=== PATIENT | female | born 1940 | race Caucasian/White ===

== ENCOUNTER 2023-09-09 17:43 | Emergency (ER) | payer MEDICARE, SELFPAY ==
--- NOTE | ~2023-09-09 | XR_ITS ---
EXAMINATION: XR CHEST CLINICAL INFORMATION: Shortness of breath COMPARISON: None available. TECHNIQUE: 2 views of the chest were obtained. FINDINGS: Moderate central pulmonary vascular congestion and increased lung markings consistent with interstitial edema. No significant pleural effusion. No focal consolidation. Heart size is normal. Vascular calcifications of thoracic aorta. XR/XR chest 2V IMPRESSION: Pulmonary vascular congestion consistent with congestive heart failure.
[2023-09-09 17:48] VITALS: BP 186/92; PULSE 84; RESP 20; TEMP 36.6; O2SAT 97; BMI 41.6
--- NOTE | 2023-09-09 17:48 | ED.GENADULT ---
HPI - General Adult General Chief complaint: Skin/Abscess/Foreign Body Stated complaint: Bilateral leg swelling Time Seen by Provider: 09/09/23 21:08 Related Data Previous Rx's Medication Instructions Recorded cephalexin 500 mg capsule 500 mg PO Q8H 7 days #21 caps 09/09/23 furosemide 20 mg tablet (Lasix) 20 mg PO DAILY #7 tabs 09/09/23 Allergies Allergy/AdvReac Type Severity Reaction Status Date / Time doxycycline Allergy Unknown Verified 09/09/23 17:53 Penicillins Allergy Unknown Verified 09/09/23 17:53 pneumococcal vaccine Allergy Unknown Verified 09/09/23 17:53 [From Pneumovax-] [facility] Social History Social History Advance Directives: Yes Advance Directives on File: No Physical Exam ED Vital Signs: BMI result Body Mass Index 41.6 Course Course Course Narrative: RME performed by Patti Dallas PA-C. Patient is an 83 year old assigned female at presenting to the emergency department with bilateral lower leg swelling. Labs ordered. Patient placed back in the waiting room pending room availability and results. Patient evaluated and dispositioned by Dr. Ling. Please see his note from 09/09/2023. Medications Administered Discontinued Medications Generic Name Dose Route Start Last Admin Trade Name Freq PRN Reason Stop Dose Admin Furosemide 20 mg 09/09/23 21:24 09/09/23 22:06 Furosemide 20 Mg Tablet PO 09/09/23 21:25 20 mg ONCE ONE Administration Protocol Ceftriaxone Sodium 1 gm/ 50 mls @ 100 mls/hr 09/09/23 21:21 09/09/23 22:38 Sodium Chloride IV 09/09/23 21:50 Infused ONCE ONE Infusion Medical Decision Making Lab Data 09/09/23 18:51 09/09/23 18:51 Labs: Lab Results 09/09/23 09/09/23 Range/Units 18:51 20:31 WBC 8.4 (4.8-10.8) X10*3/uL RBC 3.93 L (4.20-5.50) X10*6/uL Hgb 11.5 L (12.0-16.0) g/dl Hct 35.8 L (37.0-47.0) % MCV 91.1 (80.0-98.0) fL MCH 29.3 (27.0-33.0) pg MCHC 32.1 (31.0-35.0) g/dl RDW 14.8 (11.0-16.0) % Plt Count 313 (160-400) X10*3/uL MPV 9.6 (9.4-12.3) fL Immature Gran % (Auto) 0.2 (0.0-0.4) % Neut % (Auto) 65.0 (45-73) % Lymph % (Auto) 25.1 (20-40) % [place] % (Auto) 6.5 (2-11) % Eos % (Auto) 2.4 (0-4) % Baso % (Auto) 0.8 (0-2) % Lymph # (Auto) 2.1 (1.2-4.9) X10*3/uL [place]linger # (Auto) 0.5 (0.1-1.2) X10*3/uL Eos # (Auto) 0.2 (0.0-0.4) X10*3/uL Baso # (Auto) 0.1 (0.0-0.2) X10*3/uL Abs Immat Gran (auto) 0.02 (0.00-0.03) X10*3/uL Absolute Neuts (auto) 5.4 (2.0-8.3) x10*3/uL Absolute Nucleated RBC 0.000 (0.0-0.012) X10*3/uL Nucleated RBC % (auto) 0.0 (0.0-0.2) /100WBC ESR 62 H (0-20) MM/HR PT 12.1 (11.1-13.3) SEC INR 1.0 (0.9-1.1) APTT 29.6 (26.0-36.4) SEC Sodium 143 (135-145) mmol/L Potassium 4.3 (3.3-5.1) mmol/L Chloride 108 (96-108) mmol/L Carbon Dioxide 23 (22-29) mmol/L Anion Gap 16 (12-20) BUN 19 H (9-16) mg/dL Creatinine 0.85 (0.5-1.4) mg/dL Estim Creat Clear Calc 55.3 Estimated GFR > 60 Random Glucose 101 (60-115) mg/dL Calcium 9.3 (8.4-10.2) mg/dL Magnesium 2.2 (1.6-2.6) mg/dL Total Bilirubin 0.7 (0.0-1.0) mg/dL AST 15 (5-31) U/L ALT 8 (0-31) U/L Alkaline Phosphatase 80 (39-117) U/L C-Reactive Protein 2.97 H (< or = 0.50) mg/dL B-Natriuretic Peptide 72 (<100) pg/mL Total Protein 7.6 (6.5-8.0) g/dL Albumin 3.9 (3.5-5.0) g/dL Urine Color Yellow Urine Appearance Clear Urine pH 6.0 (5.0-9.0) Ur Specific [place] 1.020 (1.005-1.025) Urine Protein Negative (Neg-Trace) mg/dL Urine Glucose (UA) Negative (Negative) mg/dL Urine Ketones Negative (Negative) mg/dL Urine Blood Negative (Negative) Urine Nitrite Positive H (Negative) Ur Leukocyte Esterase Small (1+) H (Negative) Urine RBC 0-2 (0-2) /HPF Urine WBC 11-20 H (0-5) /HPF Ur Squamous Epith Cells 0-2 (0-2) /HPF Urine Bacteria 4+ (None Seen) Hyaline Casts 0-2 (0-2) /LPF Discharge Plan Discharge Clinical Impression: Cellulitis, Leg swelling Patient Disposition: Home, Self-Care Instructions: Cellulitis (DC), Leg Edema (ED) Prescriptions: New cephalexin 500 mg capsule 500 mg PO Q8H 7 Days Qty: 21 0RF furosemide [Lasix] 20 mg tablet 20 mg PO DAILY Qty: 7 0RF Referrals: Latesha Carranza [Emergency Nurse] - 09/12/23 Interventions: ED Discharge Assessment Last Done: 09/09/23 23:20 Discharge Date/Time: 09/09/23 23:20
[2023-09-09 19:04] LABS: MANUAL DIFF FLAG NO
[2023-09-09 19:13] LABS: Prothrombin Time 12.1 SEC (11.1-13.3)
[2023-09-09 19:15] LABS: Basophils Absolute Auto 0.1 X10*3/uL (0.0-0.2); Basophils Percent Auto 0.8 % (0-2); Eosinophils Absolute Auto 0.2 X10*3/uL (0.0-0.4); Eosinophils Percent Auto 2.4 % (0-4); Hematocrit 35.8 % (37.0-47.0); Hemoglobin 11.5 g/dl (12.0-16.0); Imm Gran Abs Auto 0.02 X10*3/uL (0.00-0.03); Imm Gran Pct Auto 0.2 % (0.0-0.4); Lymphocytes Absolute Auto 2.1 X10*3/uL (1.2-4.9); Lymphocytes Percent Auto 25.1 % (20-40); Mean Corpuscular HGB Conc 32.1 g/dl (31.0-35.0); Mean Corpuscular Hemoglobin 29.3 pg (27.0-33.0); Mean Corpuscular Volume 91.1 fL (80.0-98.0); Mean Platelet Volume 9.6 fL (9.4-12.3); Monocytes Absolute Auto 0.5 X10*3/uL (0.1-1.2); Monocytes Percent Auto 6.5 % (2-11); Neutrophils Absolute Auto 5.4 x10*3/uL (2.0-8.3); Partial Thromboplastin Time 29.6 SEC (26.0-36.4); Platelet Count 313 X10*3/uL (160-400); Red Blood Count 3.93 X10*6/uL (4.20-5.50); Red Cell Distribution Width 14.8 % (11.0-16.0); White Blood Count 8.4 X10*3/uL (4.8-10.8)
[2023-09-09 19:19] LABS: Alanine Aminotransferase 8 U/L (0-31); Albumin Level 3.9 g/dL (3.5-5.0); Alkaline Phosphatase 80 U/L (39-117); Anion Gap 16 (12-20); Aspartate Amino Transferase 15 U/L (5-31); Bilirubin Total 0.7 mg/dL (0.0-1.0); Blood Urea Nitrogen 19 mg/dL (9-16); C Reactive Protein 2.97 mg/dL (< or = 0.50); Calcium 9.3 mg/dL (8.4-10.2); Carbon Dioxide 23 mmol/L (22-29); Chloride 108 mmol/L (96-108); Creatinine Clr Calc Pharmacy 55.3; Estimated Glomerular Filt Rate > 60; Glucose Random 101 mg/dL (60-115); Magnesium 2.2 mg/dL (1.6-2.6); Potassium 4.3 mmol/L (3.3-5.1); Sodium 143 mmol/L (135-145); Total Protein 7.6 g/dL (6.5-8.0)
[2023-09-09 19:25] LABS: B Type Natriuretic Peptide 72 pg/mL (<100)
[2023-09-09 20:08] LABS: Erythrocyte Sedimentation Rate 62 MM/HR (0-20)
[2023-09-09 20:39] LABS: Appearance Urine Clear; Color Urine Yellow; Glucose Urine UA Negative (Negative); Leukocyte Esterase Urine Small (1+) (Negative); Nitrite Urine Positive (Negative); UMIC TRIGGER UACC YES; Urine Blood Negative (Negative); Urine Ketones Negative (Negative); Urine Protein Negative (Neg-Trace)
[2023-09-09 20:44] LABS: Bacteria Urine 4+ (None Seen); Hyaline Casts Urine 0-2 /LPF (0-2); RBC Urine 0-2 /HPF (0-2); Squamous Epithelial Cell Urine 0-2 /HPF (0-2); UACC Culture Trigger YES
[2023-09-09 21:06] VITALS: BP 155/69; PULSE 87; RESP 20; TEMP 36.6; O2SAT 96
--- NOTE | 2023-09-09 21:22 | ED_ITS ---
HPI - Skin/Abscess/Foreign Bdy General Chief complaint: Skin/Abscess/Foreign Body Stated complaint: Bilateral leg swelling Time Seen by Provider: 09/09/23 21:08 History of Present Illness HPI narrative: Patient is a 83-year-old female presents today with having bilateral leg swelling that seems to have gotten slightly worse than baseline. The patient has no history congestive heart failure baseline has leg swelling. Family complained the right leg also having some slight drainage. It is clear in color. There is a slight redness that has chronically been near. Denies any fever chills. No systemic complaints. No chest pain or shortness of breath no diaphoresis. No history of blood clot both legs are swollen. No history of cancer. Positive history of high blood pressure. Patient not taking any medication. Patient denies any urinary symptoms. No frequency. Only medication she is taking is gabapentin. Patient has a primary care doctor in [place]. She can get to see her doctor next week Related Data Previous Rx's Medication Instructions Recorded cephalexin 500 mg capsule 500 mg PO Q8H 7 days #21 caps 09/09/23 furosemide 20 mg tablet (Lasix) 20 mg PO DAILY #7 tabs 09/09/23 Allergies Allergy/AdvReac Type Severity Reaction Status Date / Time doxycycline Allergy Unknown Verified 09/09/23 17:53 Penicillins Allergy Unknown Verified 09/09/23 17:53 pneumococcal vaccine Allergy Unknown Verified 09/09/23 17:53 [From Pneumovax-] Review of Systems 2 Review of Systems: Positive leg swelling Yes all other systems are reviewed and are negative [facility] Past Medical History Attestation statement: The following information was validated with the patient. Physical Exam 2 Vital Signs: Vital Signs: Last Vital Signs Temp 97.8 F 09/09/23 21:06 Pulse 87 09/09/23 21:06 Resp 20 09/09/23 21:06 BP 155/69 H 09/09/23 21:06 Pulse Ox 96 09/09/23 21:06 O2 Del Method Room Air 09/09/23 21:06 BMI result Body Mass Index 41.6 Appearance: Alert. Oriented X3. No acute distress. Eyes: Pupils equal, round and reactive to light. ENT: Pharynx normal. Neck: Normal inspection. Neck supple. No lymph nodes noted. No crepitus CVS: Normal heart rate and rhythm. Pulses normal. Normal S1 and S2 Respiratory: No respiratory distress. Breath sounds normal. No Wheezing. No rales Abdomen: Soft and nontender. No rigidity. No distention. good BS x4 Skin: Skin warm and dry. Normal skin color. Normal skin turgor. Extremities: 2+ lower extremity edema. Neurovascular intact to all extremities. No Lacerations. Positive slight redness to bilateral legs. There is no warmth to touch. There is an area of clearish drainage from the right leg. Both legs are equally and edematous. There is good distal pulses. Sensation intact. Neuro: Oriented X 3. No motor deficit. No sensory deficit. Moving all extermities. No slurred speech Medical Decision Making Medical Decision Making [facility] Narrative: Positive leg swelling that is been ongoing for years. Getting worse slightly in the last week. Granddaughter concerns and patient in for further evaluation. Normally goes to [facility] elected to come to [facility] instead. There is no fever no chills. No chest pain or shortness of breath no diaphoresis. Both legs are equally swollen. Less likely to have a DVT. No history of cancer. Patient from home. No travel history. No history of blood clots. Will start patient on Keflex empirically. Have patient get blood pressure recheck with her primary physician. Last blood pressure check is 155/69. Start patient on Keflex for UTI and/cellulitis. Currently in stable condition patient's white count is normal. She wants to go home. Joint decision was made to send patient Differential Diagnosis Differential Diagnoses: The differential diagnosis associated with the presentation includes Cellulitis, dependent leg edema, congestive heart failure, urinary tract infection Admission/Observation Consideration of admission/observation: Escalation of care including admission/observation considered Patient wants to go home is well-appearing sat is normal BMP normal no evidence for CHF Lab Data [facility] Lab Attestation statement: I reviewed the patient's lab results. 09/09/23 18:51 09/09/23 18:51 Labs: Lab Results 09/09/23 09/09/23 Range/Units 18:51 20:31 WBC 8.4 (4.8-10.8) X10*3/uL RBC 3.93 L (4.20-5.50) X10*6/uL Hgb 11.5 L (12.0-16.0) g/dl Hct 35.8 L (37.0-47.0) % MCV 91.1 (80.0-98.0) fL MCH 29.3 (27.0-33.0) pg MCHC 32.1 (31.0-35.0) g/dl RDW 14.8 (11.0-16.0) % Plt Count 313 (160-400) X10*3/uL MPV 9.6 (9.4-12.3) fL Immature Gran % (Auto) 0.2 (0.0-0.4) % Neut % (Auto) 65.0 (45-73) % Lymph % (Auto) 25.1 (20-40) % Adams % (Auto) 6.5 (2-11) % Eos % (Auto) 2.4 (0-4) % Baso % (Auto) 0.8 (0-2) % Lymph # (Auto) 2.1 (1.2-4.9) X10*3/uL Adams # (Auto) 0.5 (0.1-1.2) X10*3/uL Eos # (Auto) 0.2 (0.0-0.4) X10*3/uL Baso # (Auto) 0.1 (0.0-0.2) X10*3/uL Abs Immat Gran (auto) 0.02 (0.00-0.03) X10*3/uL Absolute Neuts (auto) 5.4 (2.0-8.3) x10*3/uL Absolute Nucleated RBC 0.000 (0.0-0.012) X10*3/uL Nucleated RBC % (auto) 0.0 (0.0-0.2) /100WBC ESR 62 H (0-20) MM/HR PT 12.1 (11.1-13.3) SEC INR 1.0 (0.9-1.1) APTT 29.6 (26.0-36.4) SEC Sodium 143 (135-145) mmol/L Potassium 4.3 (3.3-5.1) mmol/L Chloride 108 (96-108) mmol/L Carbon Dioxide 23 (22-29) mmol/L Anion Gap 16 (12-20) BUN 19 H (9-16) mg/dL Creatinine 0.85 (0.5-1.4) mg/dL Estim Creat Clear Calc 55.3 Estimated GFR > 60 Random Glucose 101 (60-115) mg/dL Calcium 9.3 (8.4-10.2) mg/dL Magnesium 2.2 (1.6-2.6) mg/dL Total Bilirubin 0.7 (0.0-1.0) mg/dL AST 15 (5-31) U/L ALT 8 (0-31) U/L Alkaline Phosphatase 80 (39-117) U/L C-Reactive Protein 2.97 H (< or = 0.50) mg/dL B-Natriuretic Peptide 72 (<100) pg/mL Total Protein 7.6 (6.5-8.0) g/dL Albumin 3.9 (3.5-5.0) g/dL Urine Color Yellow Urine Appearance Clear Urine pH 6.0 (5.0-9.0) Ur Specific [place] 1.020 (1.005-1.025) Urine Protein Negative (Neg-Trace) mg/dL Urine Glucose (UA) Negative (Negative) mg/dL Urine Ketones Negative (Negative) mg/dL Urine Blood Negative (Negative) Urine Nitrite Positive H (Negative) Ur Leukocyte Esterase Small (1+) H (Negative) Urine RBC 0-2 (0-2) /HPF Urine WBC 11-20 H (0-5) /HPF Ur Squamous Epith Cells 0-2 (0-2) /HPF Urine Bacteria 4+ (None Seen) Hyaline Casts 0-2 (0-2) /LPF Radiology Impression Discussion of test interpretation with radiology: I have reviewed the radiologist's reading. Radiologist Impression: Question CHF but considering patient's O2 sats normal otherwise well-appearing sat is normal. No shortness of breath and a the patient. Normal BMP, unlikely patient has congestive heart failure External Record Review No old records at [facility] Discharge Plan Discharge Clinical Impression: Cellulitis, Leg swelling Patient Disposition: Home, Self-Care Instructions: Cellulitis (DC), Leg Edema (ED) Prescriptions: New cephalexin 500 mg capsule 500 mg PO Q8H 7 Days Qty: 21 0RF furosemide [Lasix] 20 mg tablet 20 mg PO DAILY Qty: 7 0RF Referrals: Latesha Carranza [Emergency Nurse] - 09/12/23
[2023-09-09] MEDS: cefTRIAXone sodium 1 GM in 0.9 % Sodium Chloride 50 ML IV (22:05)
[2023-09-09] MEDS: Furosemide 20 MG TABLET PO (22:06)
== END 2023-09-09 23:20 | disposition home or self-care (01) ==
PROVIDERS: Physician Assistant Medical; Emergency Provider Emergency Medicine Emergency Medical Services
DX: L03.115 Cellulitis of right lower limb (principal); N39.0 Urinary tract infection, site not specified; R60.0 Localized edema; R06.02 Shortness of breath; Z79.899 Other long term (current) drug therapy
CPT/HCPCS: 36415; 71046; 80053; 81001; 83735; 83880; 85025; 85610; 85652; 85730; 86140; 87086; 87088; 87186; 96365; 99284; J0696

== ENCOUNTER 2023-09-22 16:48 | Inpatient (IN) | payer MEDICARE, SELFPAY ==
--- NOTE | 2023-09-22 16:44 | ED_ITS ---
HPI - Extremity Problem General Chief complaint: Extremity Injury, Lower Stated complaint: CC of edema in calves, hx of cellulitis Source: patient Mode of arrival: EMS Limitations: no limitations History of Present Illness HPI Narrative: Patient is 83 years old with history of chronic stasis dermatitis hypertension hyperlipidemia morbid obesity and recurrent cellulitis in lower extremity was seen here on 09/09 with positive UTI and increased redness in the lower extremity discharged on cephalexin urine culture grew Klebsiella ESBL positive no patient comes here for not feeling well for last 3- 4 days with chronic leg edema and redness no fever no chills no urinary symptoms no nausea no vomiting no abdominal pain no cough no upper respiratory symptoms patient been in rehab for last 1 month for unsteady gait Related Data Home Medications Medication Instructions Recorded Confirmed atorvastatin 20 mg tablet 20 mg PO DAILY 09/22/23 09/22/23 gabapentin 300 mg capsule 300 mg PO BEDTIME 09/22/23 09/22/23 losartan 50 mg tablet 50 mg PO DAILY 09/22/23 09/22/23 montelukast 10 mg tablet 10 mg PO QPM 09/22/23 09/22/23 (Singulair) Allergies Allergy/AdvReac Type Severity Reaction Status Date / Time doxycycline Allergy Unknown Verified 09/09/23 17:53 Penicillins Allergy Unknown Verified 09/09/23 17:53 pneumococcal vaccine Allergy Unknown Verified 09/09/23 17:53 [From Pneumovax-] Review of Systems 2 Review of Systems: Yes all other systems are reviewed and are negative [facility] Past Medical History Medical History Lymphedema Stasis dermatitis of both legs Morbid obesity with BMI of 50.0-59.9, adult Hyperlipidemia Hypertension, essential Social History Social History Patient Tobacco Use Status: Never used Tobacco Smoked in Last 30 Days: No Use of substances other than those prescribed or required for medical reasons: No Advance Directives: Yes Advance Directives on File: Yes Advance Directives Date on File: 09/22/23 Patient : No Physical Exam 2 Vital Signs: Vital Signs: Last Vital Signs Temp 98.3 F 09/22/23 22:05 Pulse 94 09/22/23 22:05 Resp 18 09/22/23 22:05 BP 169/90 H 09/22/23 22:05 Pulse Ox 95 09/22/23 22:05 O2 Del Method Room Air 09/22/23 22:05 BMI result Body Mass Index 51.0 Appearance: Alert. Oriented X3. No acute distress. Obese Eyes: No pallor or icterus ENT: Pharynx normal. Oral Mucosa moist Neck: Normal inspection. Neck supple. CVS: Normal heart rate and rhythm. Pulses normal. Respiratory: No respiratory distress. Equal air entry bilateral, no wheezing/rales/rhonchi Abdomen: Soft and nontender. Bowel sounds are present, no mass palpable, no CVA tenderness Skin: Skin warm and dry. Normal skin color. Normal skin turgor. Extremities: Chronic stasis lymphedema with dermatitis and increased redness patient in the left leg than the right spreading mother to the thigh old scabs in the ramirez area Neuro: Oriented X 3. No motor deficit. No sensory deficit. Medications Administered Generic Name Dose Route Start Last Admin Trade Name Freq PRN Reason Stop Dose Admin Enoxaparin Sodium 40 mg 09/22/23 22:00 09/22/23 22:44 Enoxaparin Sodium 40 Mg/0.4 Ml Syringe SUBCUT 40 mg Q24H YUN Administration Sodium Chloride 3 ml 09/23/23 00:00 09/23/23 00:33 0.9 % Sodium Chloride Flush 3 Ml Syringe IVFLUSH 3 ml QSHIFT YUN Administration Discontinued Medications Generic Name Dose Route Start Last Admin Trade Name Freq PRN Reason Stop Dose Admin Sodium Chloride 1,000 mls @ 999 mls/hr 09/22/23 17:16 09/22/23 20:36 Ns IV 09/22/23 18:16 Infused .Q1H1M ONE Infusion Vancomycin HCl 2,000 mg in 500 mls @ 250 mls/hr 09/22/23 17:16 09/22/23 20:36 Vancomycin/Ns IV 09/22/23 19:15 Infused ONCE ONE Infusion Medical Decision Making Medical Decision Making MDM Narrative: Patient came with not feeling well symptoms with recent ESBL UTI which was not treated with proper antibiotics also has chronic stasis dermatitis possible has cellulitis. Patient denied any urinary symptoms will start on Macrobid which was sensitive to UTI will give vancomycin for cellulitis patient allergic to penicillin unable to give carbapenems advise hospitalist to consult infectious disease /pharmacist patient denies any urinary symptoms no fever no chills normal WBC count and lactic acid level. Will recheck urine Differential Diagnosis Differential Diagnoses: The differential diagnosis associated with the presentation includes Status dermatitis/cellulitis/UTI ESBL/bacteremia Admission/Observation Consideration of admission/observation: Escalation of care including admission/observation considered Consult Healthcare Provider Management of the patient was discussed with: Hospitalist Lab Data MDM Lab Attestation statement: I reviewed the patient's lab results. 09/22/23 17:20 09/22/23 17:20 Labs: Lab Results 09/22/23 09/22/23 Range/Units 17:20 17:49 WBC 8.6 (4.8-10.8) X10*3/uL RBC 3.73 L (4.20-5.50) X10*6/uL Hgb 10.8 L (12.0-16.0) g/dl Hct 33.9 L (37.0-47.0) % MCV 90.9 (80.0-98.0) fL MCH 29.0 (27.0-33.0) pg MCHC 31.9 (31.0-35.0) g/dl RDW 14.6 (11.0-16.0) % Plt Count 336 (160-400) X10*3/uL MPV 9.7 (9.4-12.3) fL Immature Gran % (Auto) 0.5 H (0.0-0.4) % Neut % (Auto) 63.7 (45-73) % Lymph % (Auto) 22.9 (20-40) % [place] % (Auto) 9.6 (2-11) % Eos % (Auto) 2.4 (0-4) % Baso % (Auto) 0.9 (0-2) % Lymph # (Auto) 2.0 (1.2-4.9) X10*3/uL [place] # (Auto) 0.8 (0.1-1.2) X10*3/uL Eos # (Auto) 0.2 (0.0-0.4) X10*3/uL Baso # (Auto) 0.1 (0.0-0.2) X10*3/uL Abs Immat Gran (auto) 0.04 H (0.00-0.03) X10*3/uL Absolute Neuts (auto) 5.5 (2.0-8.3) x10*3/uL Absolute Nucleated RBC 0.000 (0.0-0.012) X10*3/uL Nucleated RBC % (auto) 0.0 (0.0-0.2) /100WBC Sodium 140 (135-145) mmol/L Potassium 5.2 H D (3.3-5.1) mmol/L Chloride 105 (96-108) mmol/L Carbon Dioxide 24 (22-29) mmol/L Anion Gap 16 (12-20) BUN 29 H (9-16) mg/dL Creatinine 0.90 (0.5-1.4) mg/dL Estim Creat Clear Calc 56.8 Estimated GFR 60 Random Glucose 95 (60-115) mg/dL Lactic Acid 0.7 (0.5-2.0) mmol/L Calcium 9.1 (8.4-10.2) mg/dL Total Bilirubin 0.3 (0.0-1.0) mg/dL AST 23 (5-31) U/L ALT 10 (0-31) U/L Alkaline Phosphatase 72 (39-117) U/L Total Protein 7.6 (6.5-8.0) g/dL Albumin 3.7 (3.5-5.0) g/dL COVID-19 (VICTORIANO) Negative (Negative) COVID-19 Clin Com See Note Discharge Plan Discharge Clinical Impression: Chronic stasis dermatitis, Cellulitis, Urinary tract infection due to ESBL Klebsiella Patient Disposition: Admitted As Inpatient
[2023-09-22 16:56] VITALS: BP 120/70; BP 140/90; PULSE 90; RESP 16; TEMP 36.6; O2SAT 95; O2SAT 98; BMI 51.0
[2023-09-22 17:25] LABS: MANUAL DIFF FLAG NO
[2023-09-22 17:27] LABS: Basophils Absolute Auto 0.1 X10*3/uL (0.0-0.2); Basophils Percent Auto 0.9 % (0-2); Eosinophils Absolute Auto 0.2 X10*3/uL (0.0-0.4); Eosinophils Percent Auto 2.4 % (0-4); Hematocrit 33.9 % (37.0-47.0); Hemoglobin 10.8 g/dl (12.0-16.0); Imm Gran Abs Auto 0.04 X10*3/uL (0.00-0.03); Imm Gran Pct Auto 0.5 % (0.0-0.4); Lymphocytes Percent Auto 22.9 % (20-40); Mean Corpuscular HGB Conc 31.9 g/dl (31.0-35.0); Mean Corpuscular Volume 90.9 fL (80.0-98.0); Mean Platelet Volume 9.7 fL (9.4-12.3); Monocytes Absolute Auto 0.8 X10*3/uL (0.1-1.2); Monocytes Percent Auto 9.6 % (2-11); Neutrophils Absolute Auto 5.5 x10*3/uL (2.0-8.3); Neutrophils Percent Auto 63.7 % (45-73); Platelet Count 336 X10*3/uL (160-400); Red Blood Count 3.73 X10*6/uL (4.20-5.50); Red Cell Distribution Width 14.6 % (11.0-16.0); White Blood Count 8.6 X10*3/uL (4.8-10.8)
[2023-09-22 17:35] LABS: Lactic Acid 0.7 mmol/L (0.5-2.0)
[2023-09-22 17:41] LABS: Alanine Aminotransferase 10 U/L (0-31); Albumin Level 3.7 g/dL (3.5-5.0); Alkaline Phosphatase 72 U/L (39-117); Anion Gap 16 (12-20); Aspartate Amino Transferase 23 U/L (5-31); Bilirubin Total 0.3 mg/dL (0.0-1.0); Blood Urea Nitrogen 29 mg/dL (9-16); Calcium 9.1 mg/dL (8.4-10.2); Carbon Dioxide 24 mmol/L (22-29); Chloride 105 mmol/L (96-108); Creatinine Clr Calc Pharmacy 56.8; Estimated Glomerular Filt Rate 60; Glucose Random 95 mg/dL (60-115); Potassium 5.2 mmol/L (3.3-5.1); Sodium 140 mmol/L (135-145); Total Protein 7.6 g/dL (6.5-8.0)
[2023-09-22] MEDS: 0.9 % Sodium Chloride 1,000 ML 999 ML IV (18:00)
[2023-09-22] MEDS: vancomycin/NS 2,000 MG/500 ML PLAST..BAG 250 MG IV (18:00)
--- OUTSIDE RECORDS SUMMARY | 2023-09-22 18:04 | XMS_ITS | Continuity of Care Document ---
Author Name Unknown Organization [facility] Adult Address [address] [place] [address]- Care Team Providers Care Nailing Machine Feeder Name Role Phone De FLORES, Fabby Cheney Primary Care Physician [id number] Date(s): 05/07/19 - 10/05/19 [facility] Adult [address] [place] [address]- [facility] Attending Physician: Jeanette Jimenez MD Allergies, Adverse Reactions, Alerts Substance Reaction Severity Status penicillin 1 progressive rash on face Act aris shellfish 2 Active Pneumovax 23 Active 1lips swell and rash 2throat closes Immunizations Given and Recorded Vaccine Date Status Refusal Reason Influenza Virus Vaccine (oldterm) 06/06/14 Recorde d diphtheria/tetanus/pertussis, acel(DTaP) 05/11/14 Recorded Medications acetaminophen 325 mg oral tablet 650 mg, By Mouth, Every 8 hours, PRN, Refills 0, Maintenance, Pain , Mild, 03/16/19 10:24:19 EDT Start Date: 03/16/19 Status: Ordered albuterol CFC free 90 mcg/inh inhalation aerosol 1, puffs, Inhalation, 4 times a day, PRN, Refills 0, Maintenance, 10/31/18 14:31:45 EST, Aerosol, Compound Start Date: 10/31/18 Status: Ordered aspirin 81 mg oral tablet 1 tablet = 81 mg, By Mouth, Daily, # 30 tablet, 0 Refills, Maintenance, 03/15/19 13:40:19 EDT, Tablet Start Date: 03/15/19 Stop Date: 04/14/19 Status: Ordered atorvastatin 20 mg oral tablet 1 tablet = 20 mg, By Mouth, Daily, # 90 tablet, 0 Refills, Maintenance, 05/09/19 16:20:12 EDT, Tablet Start Date: 05/09/19 Status: Ordered clindamycin 300 mg oral capsule See Instructions, 2 capsule By Mouth prior to dental cleaning and procedures ONLY FILL PER PT REQUEST, # 2 tablet, 0 Refills, Acute 02/24/30 10:26:00 EDT, 03/16/19 10:25:42 EDT Start Date: 03/16/19 Stop Date: 02/24/30 Status: Ordered Colace sodium 100 mg oral capsule 100 mg, 1, capsule, By Mouth, 2 times a day, PRN, # 60 capsule, Refills 0, Tot. Refills 0, Maintenance, for constipation, 06/26/19 16:57:44 EDT, Print Requisition Start Date: 06/26/19 Status: Ordered Flovent Diskus 250 mcg/inh inhalation powder Inhalation, 2 times a day, 0 Refills, Maintenance, 10/31/18 14:30:54 EST Start Date: 10/31/18 Status: Ordered furosemide 20 mg oral tablet 20 mg, By Mouth, Once, Refills 0, Maintenance, 10/24/18 17:34:21 EST Start Date: 10/24/18 Status: Ordered gabapentin 300 mg oral capsule 300 mg, 1, capsule, By Mouth, Daily at bedtime, # 90 capsule, Refills 2, Tot. Refills 2, Maintenance, 09/05/19 9:52:16 EST, Route to Pharmacy Electronically, NCPDP_[id number], [facility] - [address] [facility], 150, cm, 07/10/19 14:06:31 EDT, Height, 107.1,... Start Date: 09/05/19 Status: Ordered irbesartan 300 mg oral tablet 1 tablet = 300 mg, By Mouth, Daily, # 90 tablet, 0 Refills, Maintenance, 05/09/19 16:21:17 EDT, Tablet Start Date: 05/09/19 Status: Ordered labetalol 100 mg oral tablet 1 tablet = 100 mg, By Mouth, 2 times a day, 0 Refills, Maintenance, 10/31/18 14:29:50 EST Start Date: 10/31/18 Status: Ordered Misc Rx Prevagen, By Mouth, Daily, Refills 0, Maintenance, 10/31/18 14:35:11 EST, Compound Start Date: 10/31/18 Status: Ordered montelukast 10 mg oral tablet 10 mg, 1, tablet, By Mouth, Daily at bedtime, # 90 tablet, Refills 3, Tot. Refills 3, Maintenance, 09/05/19 9:52:07 EST, Route to Pharmacy Electronically, NCPDP_[id number], [facility] - [address], 150, cm, 07/10/19 14:06:31 EDT, Height, 107.1, kg,... Start Date: 09/05/19 Status: Ordered Ocuvite 1 tablet, By Mouth, Daily, 0 Refills, Maintenance, 10/31/18 14:30:41 EST Start Date: 10/31/18 Status: Ordered Walker See Instructions, # 1 application, Maintenance, see instructions, 06/26/19 13:21:48 EDT, Compound Start Date: 06/26/19 Status: Ordered Problem List Condition Effective Dates Status Health Status Inform ant Aortic stenosis(Confirmed) Active Active asthma(Confirmed) Active Hyperlipidemia(Confirmed) Active HTN (hypertension)(Confirmed) Active Pelvic mass(Confirmed) Active Social History Social History Type Response Smoking Status Never (less than 100 in lifetime) entered on: 10/31/18 Sex
--- OUTSIDE RECORDS SUMMARY | 2023-09-22 18:04 | XMS_ITS | Continuity of Care Document ---
Author Name Unknown Organization [facility] ter Address [address] [place] [address]- Care Team Providers Care Executive Business Coach Name Role Phone Jeanette Jimenez MD Primary Care Physician [phone] Encounter [facility] Date(s): 10/22/19 - 11/21/[address] [address]- [facility] Attending Physician: Jeanette Jimenez MD Admitting Physician: Jeanette Jimenez MD Referring Physician: Jeanette Jimenez MD Allergies, Adverse Reactions, Alerts Substance Reaction Severity Status doxycycline Active tetracycline Active penicillin 1 progressive rash on face Act aris macrolide antibiotics Active shellfish 2 Active Pneumovax 23 Active ketolides Active 1lips swell and rash 2throat closes Immunizations Given and Recorded Vaccine Date Status Refusal Reason Influenza Virus Vaccine (oldterm) 10/03/19 Recorde d Influenza Virus Vaccine (oldterm) 06/06/14 Recorde d diphtheria/tetanus/pertussis, acel(DTaP) 05/11/14 Recorded Medications albuterol CFC free 90 mcg/inh inhalation aerosol [...] Date: 03/16/19 Stop Date: 02/24/30 Status: Ordered Flovent Diskus 250 mcg/inh inhalation [...] 09/05/19 9:52:16 EST, Route to Pharmacy Electronically, NCPDP_[id number], [facility], 150, cm, 07/10/19 14:06:31 EDT, Height, 107.1,... [...] 14:29:50 EST Start Date: 10/31/18 Status: Ordered montelukast 10 mg oral tablet 10 mg, 1, tablet, By Mouth, Daily at bedtime, # 90 tablet, Refills 3, Tot. Refills 3, Maintenance, 09/05/19 9:52:07 EST, Route to Pharmacy Electronically, NCPDP_[id number], [facility], 150, cm, 07/10/19 14:06:31 EDT, Height, 107.1, kg,... Start Date: 09/05/19 Status: Ordered Ocuvite 1 tablet, By Mouth, Daily, 0 Refills, Maintenance, 10/31/18 14:30:41 EST Start Date: 10/31/18 Status: Ordered Readi-Cat 2 2.1% oral suspension See Instructions, Please follow CT prep instructions, # 2 each, 0 Refills, Maintenance, 10/22/19 15:28:00 EST, [facility], Please follow CT prep instructions, 150.6, cm, 10/18/19 11:03:00 EST, Height, 107.1, kg, 07/10/19 14:06:00 EDT,... Start Date: 10/22/19 Status: Ordered Problem List Condition Effective Dates Status Health Status Inform ant Aortic stenosis(Confirmed) 1 Active Active asthma(Confirmed) Active Chronic low back pain(Confirmed) Active Hyperlipidemia(Confirmed) Active HTN (hypertension)(Confirmed) Active 1s/p TAVR Social History Social History Type Response Smoking Status Never (less than 100 in lifetime) entered on: 10/18/19 Sex
--- OUTSIDE RECORDS SUMMARY | 2023-09-22 18:04 | XMS_ITS | Continuity of Care Document ---
Author Name Unknown Organization [facility] Adult Address [address] [place] [address]- Care Team Providers Care Rubber Heel And Sole Press Tender Name Role Phone Tony FLORES, Jeanette Primary Care Physician [phone] Encounter [facility] [place] Date(s): 07/01/23 - 07/31/23 [facility] Adult [address] [place] [address] Allergies, Adverse Reactions, Alerts Substance Reaction Severity Status doxycycline Active tetracycline Active macrolide antibiotics Active ketolides Active Pneumovax 23 Active penicillin 1 progressive rash on face Act aris shellfish 2 Active 1lips swell and rash 2throat closes Immunizations Given and Recorded Vaccine Date Status Refusal Reason SARS-CoV-2 (COVID-19) mRNA BNT-162b2 vac 11/30/20 Given SARS-CoV-2 (COVID-19) mRNA BNT-162b2 vac 11/09/20 Given Influenza Virus Vaccine (oldterm) 10/03/19 Recorde d Influenza Virus Vaccine (oldterm) 06/06/14 Recorde d zoster vaccine, inactivated 09/07/18 Recorded influenza virus vaccine, inactivated 07/21/18 Maikol rded diphtheria/tetanus/pertussis, acel(DTaP) 05/11/14 Recorded Medications albuterol CFC [...] Ordered atorvastatin 20 mg oral tablet 1 tablet, By Mouth, Daily, # 90 tablet, 0 Refills, Maintenance, 06/07/23 10:30:00 EDT, [facility], 158, cm, 03/14/23 11:23:00 EDT, Height, 96.1, kg, 03/10/23 12:51:00 EDT, Dry Weight Start Date: 06/07/23 Status: Ordered gabapentin 300 mg oral capsule 1, capsule, By Mouth, Daily at bedtime, # 90 capsule, Refills 0, Tot. Refills 0, Maintenance, 06/07/23 17:56:00 EDT, Route to Pharmacy Electronically, [facility], 158, cm, 03/14/23 11:23:00 EDT, Height, 96.1, kg, 03/10/23 12:51:00 EDT, Start Date: 06/07/23 Status: Ordered Lasix 40 mg oral tablet 40 mg, 1, tablet, By Mouth, Daily, # 90 tablet, Refills 0, Tot. Refills 0, Maintenance, 07/08/23 13:58:00 EDT, Route to Pharmacy Electronically, [facility] #[id number], Partial fill upon patientrequest if the prescription is for a schedule II op... Start Date: 07/08/23 Status: Ordered losartan 50 mg oral tablet 50 mg, 1, tablet, By Mouth, Daily, # 90 tablet, Refills 0, Tot. Refills 0, Maintenance, 06/07/23 10:30:00 EDT, Route to Pharmacy Electronically, [facility], Partial fill upon patient request if the prescription is for a schedule II opioid... Start Date: 06/07/23 Status: Ordered montelukast 10 mg oral tablet 10 mg, 1, tablet, By Mouth, Daily at bedtime, # 90 tablet, Refills 0, Tot. Refills 0, Maintenance, 06/07/23 10:30:00 EDT, Route to Pharmacy Electronically, [facility], 158, cm, 03/14/23 11:23:00 EDT, Height, 96.1, kg, 03/10/23 12:51:00 ED... Start Date: 06/07/23 Status: Ordered Vitamin B12 1000 mcg oral tablet 1 tablet = 1,000 mcg, By Mouth, Daily, # 90 tablet, 1 Refills, Maintenance, 07/08/23 22:07:00 EDT, Tablet, [facility] #[id number], Partial fill upon patient request if the prescription is for a schedule II opioid drug., 158, cm, 07/08/23 13:09:00... Start Date: 07/08/23 Status: Ordered Problem List Condition Confirmation Course Effective Dates Status Health St atus Informant Memory loss Confirmed Active Aortic stenosis 1 Confirmed Active Chronic low back pain Confirmed Active Hyperlipidemia, unspecified Confirmed Active HTN (hypertension) Confirmed Active Severe obesity Confirmed Active 1s/p TAVR Social History Social History Type Response Smoking Status Never (less than 100 in lifetime) entered on: 10/18/19 Sex Patient Care team information Care Team Personnel Name: Evangelina Houston RN Position: [facility] RN Member Role: Primary Care Nurse Name: Jim Bhatti MD Position: [facility] Cardiology MD Member Role: Lifetime Consulting Physician Address: Address: [address] [place] [address], [address] [facility] [place] [address]- Name: Jeanette Jimenez MD Position: [facility] Physician - Primary Care Member Role: PCP Address: Address: [address] [facility] 3rd [place] [address]- Name: Justa Gong RN Position: [facility] Nurse Member Role: Primary Care Nurse Care Team Related Persons Name: GARY RODRÍGUEZ Name: WHITNEY MTZ Address: home [address] [place] [address] Name: PHILIP AUGUSTE Name: DEANDRE LUGO Address: home [address] [place] [address]
--- OUTSIDE RECORDS SUMMARY | 2023-09-22 18:04 | XMS_ITS | Continuity of Care Document ---
Author Name Unknown Organization [facility] Adult Address [address] [place] [address]- Care Team Providers Care Drill Sharpener Operator Name Role Phone Tony FLORES, Jeanette Primary Care Physician Encounter [facility] [place] Date(s): 08/22/23 - 08/29/23 [facility] Adult [address] [place] [address]- Attending Physician: Jeanette Jimenez MD Allergies, Adverse [...] tablet, 0 Refills, Maintenance, 06/07/23 10:30:00 EDT, [facility], 158, cm, 03/14/23 11:23:00 EDT, Height, 96.1, kg, 03/10/23 12:51:00 EDT, Dry Weight Start Date: 06/07/23 Status: Ordered gabapentin 300 mg oral capsule 1, capsule, By Mouth, Daily at bedtime, # 90 capsule, Refills 0, Tot. Refills 0, Maintenance, 06/07/23 17:56:00 EDT, Route to Pharmacy Electronically, [facility], 158, cm, 03/14/23 11:23:00 EDT, Height, 96.1, kg, 03/10/23 12:51:00 EDT, Start Date: 06/07/23 Status: Ordered Lasix 40 mg oral tablet 40 mg, 1, tablet, By Mouth, Daily, # 90 tablet, Refills 0, Tot. Refills 0, Maintenance, 07/08/23 13:58:00 EDT, Route to Pharmacy Electronically, [facility] #[id number], Partial fill upon patientrequest if the prescription is for a schedule II op... Start Date: 07/08/23 Status: Ordered losartan 50 mg oral tablet 50 mg, 1, tablet, By Mouth, Daily, # 90 tablet, Refills 0, Tot. Refills 0, Maintenance, 06/07/23 10:30:00 EDT, Route to Pharmacy Electronically, [facility], Partial fill upon patient request if the prescription is for a schedule II opioid... Start Date: 06/07/23 Status: Ordered montelukast 10 mg oral tablet 10 mg, 1, tablet, By Mouth, Daily at bedtime, # 90 tablet, Refills 0, Tot. Refills 0, Maintenance, 06/07/23 10:30:00 EDT, Route to Pharmacy Electronically, [facility], 158, cm, 03/14/23 11:23:00 EDT, Height, 96.1, kg, 03/10/23 12:51:00 ED... Start Date: 06/07/23 Status: Ordered Vitamin B12 1000 mcg oral tablet 1 tablet = 1,000 mcg, By Mouth, Daily, # 90 tablet, 1 Refills, Maintenance, 07/08/23 22:07:00 EDT, Tablet, [facility] #[id number], Partial fill upon patient request if the [...] Active Severe obesity Confirmed Active 1s/p TAVR Vital Signs Most recent to oldest [Reference Range]: 1 Height 158 cm (08/22/23 12:32 PM) Social History Social History Type Response Smoking Status Never (less than 100 in lifetime) entered on: 10/18/19 Sex Patient Care team information Care Team Personnel Name: Evangelina Houston RN Position: [facility] RN Member Role: Primary Care Nurse Name: Jim Bhatti MD Position: [facility] Cardiology MD Member Role: Lifetime Consulting Physician Address: Address: [address] [place] [address], [address] [facility] [place] [address]- Name: Jeanette Jimenez MD Position: [facility] Physician - Primary Care Member Role: PCP Address: Address: [address] [place] [address] 3[address] [place] [address]- Name: Justa Gong RN Position: [facility] AMB Nurse Member Role: Primary Care Nurse Care Team Related Persons Name: GARY RODRÍGUEZ Name: WHITNEY MTZ Address: home [address] [place] [address] Name: PHILIP AUGUSTE Name: DEANDRE LUGO Address: home [address] [place] [address]
--- OUTSIDE RECORDS SUMMARY | 2023-09-22 18:04 | XMS_ITS | Continuity of Care Document ---
Author Name Unknown Organization [facility] ter Address [address] [place] [address]- Care Team Providers Care Basket Maker Name Role Phone Tony FLORES, Jeanette Primary Care Physician [place] [facility] [id number] Date(s): 03/24/20 - 04/26/[address] [address]- [facility] Attending Physician: Denisse Frank NP Admitting Physician: Denisse Frank NP Referring Physician: Denisse Frank NP Allergies, Adverse Reactions, Alerts Substance Reaction Severity Status doxycycline Active tetracycline Active macrolide antibiotics Active shellfish 1 Active ketolides Active Pneumovax 23 Active penicillin 2 progressive rash on face Act aris 1throat closes 2lips swell and rash Immunizations Given and Recorded Vaccine Date Status Refusal Reason Influenza Virus Vaccine (oldterm) 10/03/19 Recorde d Influenza Virus Vaccine (oldterm) 06/06/14 Recorde d diphtheria/tetanus/pertussis, acel(DTaP) 05/11/14 Recorded Medications albuterol CFC free 90 mcg/inh inhalation aerosol 1, puffs, Inhalation, 4 times a day, PRN, Refills 0, Maintenance, 10/31/18 14:31:45 EST, Aerosol, Compound Start Date: 10/31/18 Status: Ordered amLODIPine 5 mg oral tablet 5 mg, 1, tablet, By Mouth, Daily, # 90 tablet, Refills 3, Tot. Refills 3, Maintenance, 12/05/19 11:46:00 EDT, Route to Pharmacy Electronically, [facility] #[id number], 150.6, cm, 12/05/19 11:26:00 EDT, Height, 107.1, kg, 07/10/19 14:06:00 EDT, Start Date: 12/05/19 Status: Ordered aspirin 81 mg oral tablet [...] capsule See Instructions, 2 capsule By Mouth 30-60min prior to any dental cleaning/procedure, # 2 capsule, 1 Refills, Acute 01/02/21 10:05:00 EDT, 01/03/20 10:04:00 EDT, [facility] #[id number], 150.6, cm, 12/19/19 10:53:00 EDT, Height, 107.1, kg, 1... Start Date: 01/03/20 Stop Date: 01/02/21 Status: Ordered Flovent Diskus 250 mcg/inh inhalation powder Inhalation, 2 times a day, 0 Refills, Maintenance, 10/31/18 14:30:54 EST Start Date: 10/31/18 Status: Ordered furosemide 20 mg oral tablet 20 mg, By Mouth, Once, Refills 0, Maintenance, 10/24/18 17:34:21 EST Start Date: 10/24/18 Status: Ordered gabapentin 300 mg oral capsule 300 mg, 1, capsule, By Mouth, Daily at bedtime, # 90 capsule, Refills 3, Tot. Refills 3, Maintenance, 12/19/19 11:21:00 EDT, Route to Pharmacy Electronically, [facility] #[id number], 150.6, cm, 12/19/19 10:53:00 EDT, Height, 107.1, kg, 07/10/19 1... Start Date: 12/19/19 Status: Ordered irbesartan 300 mg oral tablet [...] 09/05/19 9:52:07 EST, Route to Pharmacy Electronically, NCPDP_[id number], [facility], 150, cm, 07/10/19 14:06:31 EDT, Height, 107.1, kg,... Start Date: 09/05/19 Status: Ordered Ocuvite 1 tablet, By Mouth, Daily, 0 Refills, Maintenance, 10/31/18 14:30:41 EST Start Date: 10/31/18 Status: Ordered Readi-Cat 2 2.1% oral suspension See Instructions, Please follow CT prep instructions, # 2 each, 0 Refills, Maintenance, 10/22/19 15:28:00 EST, [facility], Please follow CT prep instructions, 150.6, cm, 10/18/19 11:03:00 EST, Height, 107.1, kg, 07/10/19 14:06:00 EDT,... Start Date: 10/22/19 Status: Ordered Problem List Condition Effective Dates Status Health Status Inform ant Aortic stenosis(Confirmed) 1 Active Chronic low back pain(Confirmed) Active Hyperlipidemia(Confirmed) Active HTN (hypertension)(Confirmed) Active 1s/p TAVR Social History Social History Type Response Smoking Status Never (less than 100 in lifetime) entered on: 10/18/19 Sex
--- OUTSIDE RECORDS SUMMARY | 2023-09-22 18:04 | XMS_ITS | Continuity of Care Document ---
Author Name Unknown Organization [facility] Adult Address [address] [place] [address]- Care Team Providers Care Geriatric Psychiatrist Name Role Phone Tony FLORES, Jeanette Primary Care Physician [phone] [place] [facility] 02/09/22 - 06/09/22 [facility] Adult [address] [place] [address]- Attending Physician: Jeanette Jimenez MD Allergies, Adverse [...] tablet, By Mouth, Daily, # 90 tablet, 1 Refills, [facility] #[id number], 150.6, cm, 12/29/2214:17:00 EDT, Height Start Date: 01/19/22 Status: Ordered gabapentin 300 mg oral capsule 1, capsule, By Mouth, Daily at bedtime, # 90 capsule, Refills 0, Route to Pharmacy Electronically, [facility] #[id number], 150.6, cm, 03/18/22 11:25:00 EDT, Height Start Date: 05/17/22 Status: Ordered irbesartan 300 mg oral tablet 1 tablet, By Mouth, Daily, # 90 tablet, 0 Refills, [facility] #[id number], 150.6, cm, :17:00 EDT, Height Start Date: 03/12/22 Status: Ordered irbesartan 300 mg oral tablet 1 tablet, By Mouth, Daily, # 90 tablet, 0 Refills, [facility] #[id number], 150.6, cm, :17:00 EDT, Height Start Date: 03/12/22 Status: Ordered irbesartan 300 mg oral tablet See Instructions, TAKE 1 TABLET BY MOUTH DAILY, # 90 tablet, 0 Refills, [facility] #[id number], 150.6, cm, 03/04/22 8:17:00 EDT, Height Start Date: 03/12/22 Status: Ordered montelukast 10 mg oral tablet 10 mg, 1, tablet, By Mouth, Daily at bedtime, # 90 tablet, Refills 3, Tot. Refills 3, Maintenance, 09/05/19 9:52:07 EST, Route to Pharmacy Electronically, NCPDP_[id number], [facility] [address], 150, cm, 07/10/19 14:06:31 EDT, Height, 107.1, kg,... Start Date: 09/05/19 Status: Ordered Ocuvite 1 tablet, By Mouth, Daily, 0 Refills, Maintenance, 10/31/18 14:30:41 EST Start Date: 10/31/18 Status: Ordered Problem List Condition Effective Dates Status Health Status Inform ant Aortic stenosis(Confirmed) 1 Active Chronic low back pain(Confirmed) Active Hyperlipidemia(Confirmed) Active HTN (hypertension)(Confirmed) Active Severe obesity(Confirmed) Active 1s/p TAVR Social History Social History Type Response Smoking Status Never (less than 100 in lifetime) entered on: 10/18/19 Sex Care Team Personnel Name: Jeanette Jimenez MD Address: [address] [place] [address] [address]rd [address] [place], [place] [address]
--- OUTSIDE RECORDS SUMMARY | 2023-09-22 18:04 | XMS_ITS | Continuity of Care Document ---
Author Name Unknown Organization [facility] Adult Address [address] [place] [address]- Care Team Providers Care Spinning Machine Tender Name Role Phone Tony FLORES, Jeanette Primary Care Physician Encounter [facility] [place] Date(s): 01/18/22 - 02/17/[address] [facility] Adult [address] [place] [address]- Allergies, Adverse Reactions, Alerts Substance Reaction Severity Status doxycycline Active tetracycline Active penicillin 1 progressive rash on face Act aris shellfish 2 Active ketolides Active Pneumovax 23 Active macrolide antibiotics Active 1lips swell and rash 2throat closes [...] Mouth, Daily, # 90 tablet, 1 Refills, [facility] #[id number], 150.6, cm, 12/29/2214:17:00 EDT, Height Start Date: 01/19/22 Status: Ordered gabapentin 300 mg oral capsule 1, capsule, By Mouth, Daily at bedtime, # 90 capsule, Refills 0, Route to Pharmacy Electronically, [facility] #[id number], 150.6, cm, 12/29/21 15:17:00 EDT, Height Start Date: 01/27/22 Status: Ordered irbesartan 300 mg oral tablet 1 tablet, By Mouth, Daily, # 90 tablet, 0 Refills, [facility] #[id number], 150.6, cm, 09/05/2016:37:00 EST, Height Start Date: 09/21/21 Status: Ordered montelukast 10 mg oral tablet 10 mg, 1, tablet, By Mouth, Daily at bedtime, # 90 tablet, Refills 3, Tot. Refills 3, Maintenance, 09/05/19 9:52:07 EST, Route to Pharmacy Electronically, NCPDP_[id number], [facility], 150, cm, 07/10/19 14:06:31 EDT, Height, [...]
--- OUTSIDE RECORDS SUMMARY | 2023-09-22 18:04 | XMS_ITS | Continuity of Care Document ---
Author Name Unknown Organization [facility] Adult Address [address] [place] [address]- Care Team Providers Care Ground Crewman Name Role Phone Tony FLORES, Jeanette Primary Care Physician [phone] Encounter [facility] [place] Date(s): 06/13/23 - 07/13/23 [facility] Adult [address] [place] [address] Allergies, Adverse Reactions, Alerts Substance Reaction Severity [...] tablet, 0 Refills, Maintenance, 06/07/23 10:30:00 EDT, [facility], 158, cm, 03/14/23 11:23:00 EDT, Height, 96.1, [...] 07/08/23 13:58:00 EDT, Route to Pharmacy Electronically, [facility] #[id number], Partial fill upon patientrequest if the prescription [...] 96.1, kg, 03/10/23 12:51:00 ED... Start Date: 9/12/23 Status: Ordered Vitamin B12 1000 mcg oral tablet 1 tablet = 1,000 mcg, By Mouth, Daily, # 90 tablet, 1 Refills, Maintenance, 07/08/23 22:07:00 EDT, Tablet, [facility] #[id number], Partial fill upon patient request if the [...] Team Personnel Name: Evangelina Houston RN Position: [facility] RN Member Role: Primary Care Nurse Name: Jim Bhatti MD Position: [facility] Cardiology MD Member Role: Lifetime Consulting Physician Address: Address: [address] [place] [address], [address] [facility] [place] [address]- Name: Jeanette Jimenez MD Position: [facility] Physician - Primary Care Member Role: PCP Address: Address: [address] [facility] 3rd [place] [address]- Name: Justa Gong RN Position: [facility] AMB Nurse Member Role: Primary Care Nurse Care Team Related Persons Name: GARY RODRÍGUEZ Name: WHITNEY MTZ Address: home [address] [place] [address] Name: PHILIP AUGUSTE Name: DEANDRE LUGO Address: home [address] [place] [address]
--- OUTSIDE RECORDS SUMMARY | 2023-09-22 18:05 | XMS_ITS | Continuity of Care Document ---
Author Name Unknown Organization [facility] Adult Address [address] [place] [address]- Care Team Providers Care Java Oracle Developer Name Role Phone Tony FLORES, Jeanette Primary Care Physician Encounter [facility] [place] [place] Date(s): 03/04/22 - 03/11/22 [facility] Adult [address] [place] [address]- Encounter Diagnosis Memory loss(Discharge Diagnosis) - 03/04/22 Attending Physician: Jeanette Jimenez MD Allergies, Adverse [...] Mouth, Daily, # 90 tablet, 1 Refills, [facility] #[id number], 150.6, cm, 12/29/2214:17:00 EDT, Height Start Date: 01/19/22 Status: Ordered gabapentin 300 mg oral capsule 1, capsule, By Mouth, Daily at bedtime, # 90 capsule, Refills 0, Route to Pharmacy Electronically, [facility] #[id number], 150.6, cm, 12/29/21 15:17:00 EDT, Height Start Date: 01/27/22 Status: Ordered irbesartan 300 mg oral tablet 1 tablet, By Mouth, Daily, # 90 tablet, 0 Refills, [facility] #[id number], 150.6, cm, 09/05/2016:37:00 EST, Height Start Date: 09/21/21 Status: Ordered montelukast 10 mg oral tablet 10 mg, 1, tablet, By Mouth, Daily at bedtime, # 90 tablet, Refills 3, Tot. Refills 3, Maintenance, 09/05/19 9:52:07 EST, Route to Pharmacy Electronically, NCPDP_[id number], [facility] [address], 150, cm, 07/10/19 14:06:31 EDT, Height, 107.1, kg,... Start Date: 09/05/19 Status: Ordered Ocuvite 1 tablet, By Mouth, Daily, 0 Refills, Maintenance, 10/31/18 14:30:41 EST Start Date: 10/31/18 Status: Ordered Problem List Condition Effective Dates Status Health Status Inform ant Aortic stenosis(Confirmed) 1 Active Chronic low back pain(Confirmed) Active Hyperlipidemia(Confirmed) Active HTN (hypertension)(Confirmed) Active Severe obesity(Confirmed) Active 1s/p TAVR Diagnosis Diagnosis Type Effective Dates Health Status Clini mary Service Informant Memory loss Discharge Diagnosis 03/04/22 Vital Signs Most recent to oldest [Reference Range]: 1 Height 150.6 cm (03/04/22 8:17 AM) Weight Obtained Via Standing scale (03/04/22 8:17 AM) Social History Social History Type Response Smoking Status Never (less than 100 in lifetime) entered on: 10/18/19 Sex
--- OUTSIDE RECORDS SUMMARY | 2023-09-22 18:05 | XMS_ITS | Continuity of Care Document ---
Author Name Unknown Organization [facility] Adult Address [address] [place] [address]- Care Team Providers Care Recycling Director Name Role Phone Tony FLORES, Jeanette Primary Care Physician [phone] [place] [facility] [place]/22 [facility] Adult [address] [place] [address]- Attending Physician: Harrison Russo Admitting Physician: Harrison Russo Referring Physician: AdmtrHarrison Allergies, Adverse Reactions, Alerts Substance Reaction Severity [...] Mouth, Daily, # 90 tablet, 1 Refills, [facility] #[id number], 150.6, cm, 12/29/2214:17:00 EDT, Height Start Date: 01/19/22 Status: Ordered gabapentin 300 mg oral capsule 1, capsule, By Mouth, Daily at bedtime, # 90 capsule, Refills 0, Route to Pharmacy Electronically, [facility] #[id number], 150.6, cm, 03/18/22 11:25:00 EDT, Height Start Date: 05/17/22 Status: Ordered irbesartan 300 mg oral tablet 1 tablet, By Mouth, Daily, # 90 tablet, 0 Refills, [facility] #[id number], 150.6, cm, :17:00 EDT, Height Start Date: 03/12/22 Status: Ordered irbesartan 300 mg oral tablet 1 tablet, By Mouth, Daily, # 90 tablet, 0 Refills, [facility] #[id number], 150.6, cm, :17:00 EDT, Height Start Date: 03/12/22 Status: Ordered irbesartan 300 mg oral tablet See Instructions, TAKE 1 TABLET BY MOUTH DAILY, # 90 tablet, 0 Refills, [facility] #[id number], 150.6, cm, 03/04/22 8:17:00 EDT, Height Start Date: 03/12/22 Status: Ordered montelukast 10 mg oral tablet 10 mg, 1, tablet, By Mouth, Daily at bedtime, # 90 tablet, Refills 3, Tot. Refills 3, Maintenance, 09/05/19 9:52:07 EST, Route to Pharmacy Electronically, [facility]ID-[id number], [facility] [address], 150, cm, 07/10/19 14:06:31 EDT, Height, [...] Team Personnel Name: Jeanette Jimenez MD Address: [address] [place] [id number]
--- OUTSIDE RECORDS SUMMARY | 2023-09-22 18:05 | XMS_ITS | Continuity of Care Document ---
Author Name Unknown Organization [facility] Adult Address [address] [place] [address]- Care Team Providers Care Turn Down Man Name Role Phone Tony FLORES, Jeanette Primary Care Physician En[place] [facility] [place] Date(s): 03/10/21 - 04/09/21 [facility] [address] [place] [address]- Attending Physician: Harrison Russo Admitting Physician: Harrison [...] tablet, Refills 3, Tot. Refills 3, Maintenance, 09/08/20 14:44:00 EST, Route to Pharmacy Electronically, [facility] #[id number], 150.6, cm, 09/05/20 16:37:00 EST, Height, 107.1, kg, 07/10/19 14:06:00 EDT, . Start Date: 09/08/20 Status: Ordered aspirin 81 mg oral tablet 1 tablet = 81 mg, By Mouth, Daily, # 30 tablet, 0 Refills, Maintenance, 03/15/19 13:40:19 EDT, Tablet Start Date: 03/15/19 Stop Date: 04/14/19 Status: Ordered atorvastatin 20 mg oral tablet 1 tablet = 20 mg, By Mouth, Daily, # 90 tablet, 3 Refills, Maintenance, 09/08/20 14:45:00 EST, Tablet, [facility] #[id number], 150.6, cm, 09/05/20 16:37:00 EST, Height, 107.1, kg, 07/10/19 14:06:00 EDT, Dry Weight Start Date: 09/08/20 Status: Ordered gabapentin 300 mg oral capsule 300 mg, 1, capsule, By Mouth, Daily at bedtime, # 90 capsule, Refills 3, Tot. Refills 3, Maintenance, 09/08/20 14:46:00 EST, Route to Pharmacy Electronically, [facility] #[id number], 150.6, cm, 09/05/20 16:37:00 EST, Height, 107.1, kg, 07/10/19 1... Start Date: 09/08/20 Status: Ordered irbesartan 300 mg oral tablet 1 tablet = 300 mg, By Mouth, Daily, # 90 tablet, 3 Refills, Maintenance, 09/08/20 14:43:00 EST, Tablet, [facility] #[id number], 150.6, cm, 09/05/20 16:37:00 EST, Height, 107.1, kg, 07/10/19 14:06:00 EDT, Dry Weight Start Date: 09/08/20 Status: Ordered montelukast 10 mg oral tablet 10 mg, 1, tablet, By Mouth, Daily at bedtime, # 90 tablet, Refills 3, Tot. Refills 3, Maintenance, 09/05/19 9:52:07 EST, Route to Pharmacy Electronically, [facility]-[id number], [facility] [address], 150, cm, 07/10/19 14:06:31 EDT, Height, [...]
--- OUTSIDE RECORDS SUMMARY | 2023-09-22 18:05 | XMS_ITS | Continuity of Care Document ---
Author Name Unknown Organization [facility] Adult Address [address] [place] [address]- Care Team Providers Care Pyrotechnic Assembler Name Role Phone [place] FLORES, Jeanette Primary Care Physician Encounter [facility] [place] Date(s): 06/01/23 - 07/28/23 [facility] Adult [address] [place] [address]- Encounter Diagnosis UTI (urinary tract infection)(Discharge Diagnosis) - 06/28/23 Attending Physician: Cece ART COORDINATOR, Nayely Lancaster Allergies, Adverse Reactions, Alerts Substance Reaction Severity Status doxycycline Active tetracycline Active macrolide antibiotics Active shellfish 1 Active Pneumovax 23 Active ketolides Active penicillin 2 progressive rash on face [...] Refills, Maintenance, 06/07/23 10:30:00 EDT, [facility], 158, cm, 03/14/23 11:23:00 EDT, Height, 96.1, kg, 03/10/23 12:51:00 EDT, Dry Weight Start Date: 06/07/23 Status: Ordered gabapentin 300 mg oral capsule 1, capsule, By Mouth, Daily at bedtime, # 90 capsule, Refills 0, Tot. Refills 0, Maintenance, 06/07/23 17:56:00 EDT, Route to Pharmacy Electronically, [facility], 158, cm, 03/14/23 11:23:00 EDT, Height, 96.1, kg, 03/10/23 12:51:00 EDT, Start Date: 06/07/23 Status: Ordered Lasix 40 mg oral tablet 40 mg, 1, tablet, By Mouth, Daily, # 90 tablet, Refills 0, Tot. Refills 0, Maintenance, 07/08/23 13:58:00 EDT, Route to Pharmacy Electronically, [facility] #[id number], Partial fill upon patientrequest if the prescription is for a schedule II op... Start Date: 07/08/23 Status: Ordered losartan 50 mg oral tablet 50 mg, 1, tablet, By Mouth, Daily, # 90 tablet, Refills 0, Tot. Refills 0, Maintenance, 06/07/23 10:30:00 EDT, Route to Pharmacy Electronically, [facility], Partial fill upon patient request if the prescription is for a schedule II opioid... Start Date: 06/07/23 Status: Ordered montelukast 10 mg oral tablet 10 mg, 1, tablet, By Mouth, Daily at bedtime, # 90 tablet, Refills 0, Tot. Refills 0, Maintenance, 06/07/23 10:30:00 EDT, Route to Pharmacy Electronically, [facility], 158, cm, 03/14/23 11:23:00 EDT, Height, 96.1, kg, 03/10/23 12:51:00 ED... Start Date: 06/07/23 Status: Ordered Vitamin B12 1000 mcg oral tablet 1 tablet = 1,000 mcg, By Mouth, Daily, # 90 tablet, 1 Refills, Maintenance, 07/08/23 22:07:00 EDT, Tablet, [id number], Partial fill upon patient request if the [...] Active Severe obesity Confirmed Active 1s/p TAVR Diagnosis Diagnosis Type Effective Dates Health Status Cl inical Service Informant UTI (urinary tract infection) Discharge Diagnosis 06/28/23 Social History Social History Type Response Smoking Status Never (less than 100 in lifetime) entered on: 10/18/19 Sex Patient Care team information Care Team Personnel Name: Evangelina Houston RN Position: [facility] RN Member Role: Primary Care Nurse Name: Jim Bhatti MD Position: [facility] Cardiology MD Member Role: Lifetime Consulting Physician Address: Address: [address] [place] [address], [address] [facility] [place] [address]- Name: Jeanette Jimenez MD Position: [facility] Physician - Primary Care Member Role: PCP Address: Address: [address] [place] [address] [address] [place] [address]- Name: Justa Gong RN Position: [facility] AMB Nurse Member Role: Primary Care Nurse Care Team Related Persons Name: GARY RODRÍGUEZ Name: WHITNEY MTZ Address: home [address] [place] [address] Name: PHILIP AUGUSTE Name: DEANDRE LUGO Address: home [address] [place] [address]
--- OUTSIDE RECORDS SUMMARY | 2023-09-22 18:05 | XMS_ITS | Continuity of Care Document ---
Author Name Unknown Organization [facility] Address [address] [place] [address]- Care Team Providers Care Logistics Associate Name Role Phone [place] FLORES, Jeanette Primary Care Physician [phone] [place] [facility] [place]10/20 [facility] [address] [place] [id number] Attending Physician: Parviz Ramirez MD Admitting Physician: Parviz Ramirze MD Referring Physician: Jeanette Jimenez MD Allergies, [...] 09/08/20 14:44:00 EST, Route to Pharmacy Electronically, [facility] #[id number], 150.6, cm, 09/05/20 16:37:00 EST, Height, 107.1, [...] 3 Refills, Maintenance, 09/08/20 14:45:00 EST, Tablet, [facility] #[id number], 150.6, cm, 09/05/20 16:37:00 EST, Height, 107.1, kg, 07/10/19 14:06:00 EDT, Dry Weight Start Date: 09/08/20 Status: Ordered gabapentin 300 mg oral capsule 300 mg, 1, capsule, By Mouth, Daily at bedtime, # 90 capsule, Refills 3, Tot. Refills 3, Maintenance, 09/08/20 14:46:00 EST, Route to Pharmacy Electronically, [facility] #[id number], 150.6, cm, 09/05/20 16:37:00 EST, Height, 107.1, kg, 07/10/19 1... Start Date: 09/08/20 Status: Ordered irbesartan 300 mg oral tablet 1 tablet = 300 mg, By Mouth, Daily, # 90 tablet, 3 Refills, Maintenance, 09/08/20 14:43:00 EST, Tablet, [facility] #[id number], 150.6, cm, 09/05/20 16:37:00 EST, Height, 107.1, kg, 07/10/19 14:06:00 EDT, Dry Weight Start Date: 09/08/20 Status: Ordered montelukast 10 mg oral tablet 10 mg, 1, tablet, By Mouth, Daily at bedtime, # 90 tablet, Refills 3, Tot. Refills 3, Maintenance, 09/05/19 9:52:07 EST, Route to Pharmacy Electronically, [facility][id number], [facility] [address], 150, cm, 07/10/19 14:06:31 EDT, Height, [...]
--- OUTSIDE RECORDS SUMMARY | 2023-09-22 18:05 | XMS_ITS | Continuity of Care Document ---
Author Name Unknown Organization [facility] Adult Address [address] [place] [address]- Care Team Providers Care Exploitation Analyst Name Role Phone Tony FLORES, Jeanette Primary Care Physician Encounter [facility] Date(s): 07/08/23 - 07/15/23 [facility] Adult [address] [place] [id number]- Encounter Diagnosis Medicare annual wellness visit, subsequent(Discharge Diagnosis) - 07/08/23 Aortic stenosis(Discharge Diagnosis) - 07/08/23 HTN (hypertension)(Discharge Diagnosis) - 07/08/23 Hyperlipidemia, unspecified(Discharge Diagnosis) - 07/08/23 Memory loss(Discharge Diagnosis) - 07/08/23 Severe obesity(Discharge Diagnosis) - 07/08/23 Leg swelling(Discharge Diagnosis) - 07/08/23 Attending Physician: Jeanette Jimenez MD Allergies, Adverse Reactions, Alerts Substance Reaction Severity Status doxycycline Active tetracycline Active shellfish 1 Active ketolides Active Pneumovax 23 Active penicillin 2 progressive rash on face Act aris macrolide antibiotics Active 1throat closes 2lips swell and rash Immunizations [...] tablet, 0 Refills, Maintenance, 06/07/23 10:30:00 EDT, [facility], 158, cm, 03/14/23 11:23:00 EDT, Height, 96.1, kg, 03/10/23 12:51:00 EDT, Dry Weight Start Date: 06/07/23 Status: Ordered gabapentin 300 mg oral capsule 1, capsule, By Mouth, Daily at bedtime, # 90 capsule, Refills 0, Tot. Refills 0, Maintenance, 06/07/23 17:56:00 EDT, Route to Pharmacy Electronically, [facility], 158, cm, 03/14/23 11:23:00 EDT, Height, 96.1, kg, 03/10/23 12:51:00 EDT, Start Date: 06/07/23 Status: Ordered Lasix 40 mg oral tablet 40 mg, 1, tablet, By Mouth, Daily, # 90 tablet, Refills 0, Tot. Refills 0, Maintenance, 07/08/23 13:58:00 EDT, Route to Pharmacy Electronically, [facility] #[id number], Partial fill upon patientrequest if the prescription is for a schedule II op... Start Date: 07/08/23 Status: Ordered losartan 50 mg oral tablet 50 mg, 1, tablet, By Mouth, Daily, # 90 tablet, Refills 0, Tot. Refills 0, Maintenance, 06/07/23 10:30:00 EDT, Route to Pharmacy Electronically, [facility], Partial fill upon patient request if the prescription is for a schedule II opioid... Start Date: 06/07/23 Status: Ordered montelukast 10 mg oral tablet 10 mg, 1, tablet, By Mouth, Daily at bedtime, # 90 tablet, Refills 0, Tot. Refills 0, Maintenance, 06/07/23 10:30:00 EDT, Route to Pharmacy Electronically, [facility], 158, cm, 03/14/23 11:23:00 EDT, Height, 96.1, kg, 03/10/23 12:51:00 ED... Start Date: 06/07/23 Status: Ordered Vitamin B12 1000 mcg oral tablet 1 tablet = 1,000 mcg, By Mouth, Daily, # 90 tablet, 1 Refills, Maintenance, 07/08/23 22:07:00 EDT, Tablet, [id number], Partial fill upon patient request if the [...] Diagnosis Diagnosis Type Effective Dates Health Status Clinical Service Informant Medicare annual wellness visit, subsequent Discharge Diagnosis 07/08/23 Aortic stenosis Discharge Diagnosis 07/08/23 HTN (hypertension) Discharge Diagnosis 07/08/23 Hyperlipidemia, unspecified Discharge Diagnosis 07/08/23 Memory loss Discharge Diagnosis 07/08/23 Severe obesity Discharge Diagnosis 07/08/23 Leg swelling Discharge Diagnosis 07/08/23 Vital Signs Most recent to oldest [Reference Range]: 1 Height 158 cm (07/08/23 1:09 PM) Oxygen Saturation [94-100 %] 97 % (07/08/23 1:09 PM) Pulse Rate [55-90 bpm] 86 bpm (07/08/23 1:09 PM) Blood Pressure [90-138/55-84 mm Hg] 127/ 80mm Hg (07/08/23 1:09 PM) Mode of Delivery (Oxygen) Room air (07/08/23 1:09 PM) Blood pressure sites Arm, left (07/08/23 1:09 PM) Social History Social History Type Response Smoking Status Never (less than 100 in lifetime) entered on: 10/18/19 Sex Note * Gwendolyn Arndt: PERFORM, SIGN, VERIFY Event Display: Patient Education/Instruction Authored Date: [id number] [facility] *[facility] Clinical Summary Name AICHA LUGO Age 83 Years 1940 PCP Jeanette Jimenez MD PCP Visit Date 07/08/2023 13:07:00 Additional Instructions: Scheduled Appointments?? Future Appointments ?*[facility] [address],??[address] ?Phone:??--?Fax:??-- ?Appt. Date:??07/28/2023?2:45 PM ?Scheduled Provider:??Jeanette Jimenez MD Follow-Up Instructions ?? With: Address: When: Jeanette Jimenez MD 07/08/2023 12:00 AM Comments: tele fu 2-3 wks annual 1 yr Diagnosis Encounter for general adult medical examination without abnormal findings; Essential (primary) hypertension; Other amnesia; Nonrheumatic aortic (valve) stenosis; Other specified soft tissue disorders; Hyperlipidemia, unspecified; Morbid (severe) obesity due to excess calories Medications: Please continue your medications until treatment is completed or stopped by your provider. Discuss any questions related to medications with your provider. New Medications [facility] #[id number], [address] [place] [phone], [phone] Furosemide (Lasix 40 mg oral tablet) 1 tab(s) Oral Daily. Refills: 0. Next Dose: Medications to Continue with No Changes These medications were not printed or sent to your pharmacy Albuterol (albuterol CFC free 90 mcg/inh inhalation aerosol) 1 puff(s) Inhalation 4 times a day as needed for wheezing. Next Dose: Aspirin (aspirin 81 mg oral tablet) 1 tab(s) Oral Daily for 30 Days. Next Dose: Atorvastatin (atorvastatin 20 mg oral tablet) 1 tab(s) Oral Daily. Refills: 0. Next Dose: Gabapentin (gabapentin 300 mg oral capsule) 1 capsule Oral Daily at Bedtime. Refills: 0. Next Dose: Losartan (losartan 50 mg oral tablet) 1 tab(s) Oral Daily. Refills: 0. Next Dose: Montelukast (montelukast 10 mg oral tablet) 1 tab(s) Oral Daily at Bedtime. Refills: 0. Next Dose: Allergy Info:?? ketolides; Pneumovax 23; shellfish; macrolide antibiotics; penicillin; tetracycline; doxycycline Medications Given This Visit Future Orders ?No future orders Vital Signs Height 158 cm Weight BMI Blood Pressure 127 mm Hg/80 mm Hg Temperature Pulse Rate 86 bpm Respiratory Rate 02 Sat Mode of Delivery 97 %/Room air You can now view a summary of your hospital visit from the comfort of your home through a free online portal called [employer]. [employer] is a website that allows you to securely view your medical information including discharge summary, medications and follow-up visits. ??You can alsosend a secure electronic message to your doctor???s office to request appointments, renew medications or just ask a question. You can enroll at [email or web address] or register during your next office visit. Disclaimer:?? The information provided is of a general nature and is intended to be used in conjunction with the recommendations and advice of your health care practitioner. ??Every effort has been made to ensure that the information provided is accurate and complete at the time it is provided to you however, as your needs change, or, as new ??information becomes available, different or additional instructions may be required. If you have questions, please consult with your primary care provider or pharmacist, as appropriate. ??This information is not intended to serve as substitution for assessment and evaluation by a qualified health care provider. If you do not have a primary care provider, you may find a [facility] provider by calling [facility] at [phone]. [facility], in keeping with [facility] guidance, no longer requires face masks for staff, patientsor visitors in most situations. Similar to time spent indoors at other locations, there is the chance that you were exposed to respiratory viruses during your time with us (such as flu or COVID-19).? If you develop symptoms concerning for a viral respiratory infection, please seek testing (and treatment if indicated) from your medical provider or home test kit. For information about the plan of care including goals and instructions for your diagnosis, please see the patient education orders section of this document. Patient Education Materials?? The content of this educational material or handout may have been modified, supplemented, or adapted from its original content and format to support your individualized medical care. Prevention Guidelines, Women Ages 65 and Older Screening tests and vaccines are an important part of managing your health. Health counseling is essential, too. Below are guidelines for these, for women ages 65 and older. Talk with your healthcareprovider to make sure you???re up to date on what you need. Screening Who needs it How often Type 2 diabetes or prediabetes All adults beginning at age 45 and adults without symptoms at any age who are overweight or obese and have 1 or more additional risk factors for diabetes At least every 3 years Alcohol misuse All women in this age group At routine exams Blood pressure All women in this age group Every 2 years if your blood pressure is less than 120/80 mm Hg; yearly if your systolic blood pressure is 120 to 139 mm Hg, or your diastolic blood pressure reading is 80 to 89 mm Hg Breast cancer All women in this age group Yearly mammogram and clinical breast exam1 Cervical cancer Only women who had abnormal screening results before age 65 Talk with your healthcare provider Chlamydia Women at increased risk for infection At routine exams Colorectal cancer All women in this age group1 Flexible sigmoidoscopy every 5 years, or colonoscopy every 10 years, or double- contrast barium enema every 5 years; yearly fecal occult blood test or fecal immunochemical test; or a stool DNA test asoften as your healthcare provider advises; talk with your healthcare provider about which tests arebest for you Depression All women in this age group At routine exams Gonorrhea Sexually active women at increased risk for infection At routine exams Hepatitis C Anyone at increased risk; 1 time for those born between 1945 and 1964 At routine exams High cholesterol or triglycerides All women in this age group who are at risk for coronary artery disease At least every 5 years HIV Women at increased risk for infection ??? talk with your healthcare provider At routine exams Lung cancer Adults age 55 to 80 who have smoked Yearly screening in smokers with 30 pack-year history of smoking or who quit within 15 years Obesity All women in this age group At routine exams Osteoporosis All women in this age group Bone density test at age 65, then follow-up as advised by your healthcare provider Syphilis Women at increased risk for infection ??? talk with your healthcare provider At routine exams Thyroid-Stimulating Hormone (TSH) All women in this age group Every 5 years Tuberculosis Women at increased risk for infection ??? talk with your healthcare provider Ask your healthcare provider Vision All women in this age group Every 1 to 2 years; if you have a chronic health condition, ask your healthcare provider if you need exams more often Vaccine Who needs it How often Chickenpox (varicella) All women in this age group who have no record of this infection or vaccine 2 doses; second dose should be given at least 4 weeks after the first dose Hepatitis A Women at increased risk for infection ??? talk with your healthcare provider 2 doses given 6 months apart Hepatitis B Women at increased risk for infection ??? talk with your healthcare provider 3 doses over 6 months; second dose should be given 1 month after the first dose; the third dose should be given at least 2 months after the second dose and at least 4 months after the first dose Haemophilus influenza??Type B (HIB) Women at increased risk for infection ??? talk with your healthcare provider 1 to 3 doses Influenza (flu) All women in this age group Once a year Pneumococcal??conjugate vaccine (PCV13)??and pneumococcal polysaccharide??vaccine (PPSV23) All women in this age group 1 dose of each vaccine Tetanus/diphtheria/pertussis (Td/Tdap) booster All women in this age group Td every 10 years, or a one-time dose of Tdap instead of a Td booster after age 18, then Td every 10 years Zoster All women in this age group 1 dose Counseling Who needs it How often Diet and exercise Women who are overweight or obese When diagnosed, and then at routine exams Fall prevention (exercise and vitamin D supplements) All women in this age group At routine exams Sexually transmitted infection prevention Women at increased risk for infection ??? talk with your healthcare provider At routine exams Use of daily aspirin Women ages 55 and up in this age group who are at risk for cardiovascular health problems such as stroke When your risk is known Use of tobacco and the health effects it can cause All women in this age group Every exam 1American Cancer Society ?? 5646-0076 [employer]. [address] [place] [address]. All rights reserved. This information is not intended as a substitute for professional medical care. Always follow your healthcare professional's instructions. * Torsten Calderon: PERFORM, SIGN, VERIFY Event Display: Patient Education/Instruction Authored Date: [id number] [facility] *[facility] Clinical Summary Name AICHA LUGO Age 83 Years 1940 [id number] Date 07/08/2023 13:07:00 Additional Instructions: Scheduled Appointments?? Future Appointments ?No Future Appointments Scheduled Follow-Up Instructions ?? With: Address: When: Jeanette Jimenez MD 07/08/2023 12:00 AM Comments: tele fu 2-3 wks annual 1 yr Diagnosis Encounter for general adult medical examination without abnormal findings; Essential (primary) hypertension; Other amnesia; Nonrheumatic aortic (valve) stenosis; Other specified soft tissue disorders; Hyperlipidemia, unspecified; Morbid (severe) obesity due to excess calories Medications: Please continue your medications until treatment is completed or stopped by your provider. Discuss any questions related to medications with your provider. New Medications [facility] #[id number], [address] [place] [id number], [phone] Furosemide (Lasix 40 mg oral tablet) 1 tab(s) Oral Daily. Refills: 0. Next Dose: Medications to Continue with No Changes These medications were not printed or sent to your pharmacy Albuterol (albuterol CFC free 90 mcg/inh inhalation aerosol) 1 puff(s) Inhalation 4 times a day as needed for wheezing. Next Dose: Aspirin (aspirin 81 mg oral tablet) 1 tab(s) Oral Daily for 30 Days. Next Dose: Atorvastatin (atorvastatin 20 mg oral tablet) 1 tab(s) Oral Daily. Refills: 0. Next Dose: Gabapentin (gabapentin 300 mg oral capsule) 1 capsule Oral Daily at Bedtime. Refills: 0. Next Dose: Losartan (losartan 50 mg oral tablet) 1 tab(s) Oral Daily. Refills: 0. Next Dose: Montelukast (montelukast 10 mg oral tablet) 1 tab(s) Oral Daily at Bedtime. Refills: 0. Next Dose: Allergy Info:?? ketolides; Pneumovax 23; shellfish; macrolide antibiotics; penicillin; tetracycline; doxycycline Medications Given This Visit Future Orders ?B Type Natriuretic Peptide? Order Date:07/08/23?- Complete on or after?07/08/23 ?Comprehensive Metabolic Panel? Order Date:07/08/23?- Complete on or after?07/08/23 ?CBC? Order Date:07/08/23?- Complete on or after?07/08/23 ?Lipid Panel? Order Date:07/08/23?- Complete on or after?07/08/23 ?TSH with T4 Reflex (Adults Only)? Order Date:07/08/23?- Complete on or after?07/08/23 ?Vitamin B12 Level? Order Date:07/08/23?- Complete on or after?07/08/23 ?Folate Level? Order Date:07/08/23?- Complete on or after?07/08/23 Vital Signs Height 158 cm Weight BMI Blood Pressure 127 mm Hg/80 mm Hg Temperature Pulse Rate 86 bpm Respiratory Rate 02 Sat Mode of Delivery 97 %/Room air You can now view a summary of your hospital visit from the comfort of your home through a free online portal called [employer]. [employer] is a website that allows you to securely view your medical information including discharge summary, medications and follow-up visits. ??You can alsosend a secure electronic message to your doctor???s office to request appointments, renew medications or just ask a question. You can enroll at [email or web address] or register during your next office visit. Disclaimer:?? The information provided is of a general nature and is intended to be used in conjunction with the recommendations and advice of your health care practitioner. ??Every effort has been made to ensure that the information provided is accurate and complete at the time it is provided to you however, as your needs change, or, as new ??information becomes available, different or additional instructions may be required. If you have questions, please consult with your primary care provider or pharmacist, as appropriate. ??This information is not intended to serve as substitution for assessment and evaluation by a qualified health care provider. If you do not have a primary care provider, you may find a [facility] provider by calling [facility] at [phone]. [facility], in keeping with [facility] guidance, no longer requires face masks for staff, patientsor visitors in most situations. Similar to time spent indoors at other locations, there is the chance that you were exposed to respiratory viruses during your time with us (such as flu or COVID-19).? If you develop symptoms concerning for a viral respiratory infection, please seek testing (and treatment if indicated) from your medical provider or home test kit. For information about the plan of care including goals and instructions for your diagnosis, please see the patient education orders section of this document. Patient Education Materials?? The content of this educational material or handout may have been modified, supplemented, or adapted from its original content and format to support your individualized medical care. Prevention Guidelines, Women Ages 65 and Older Screening tests and vaccines are an important part of managing your health. Health counseling is essential, too. Below are guidelines for these, for women ages 65 and older. Talk with your healthcareprovider to make sure you???re up to date on what you need. Screening Who needs it How often Type 2 diabetes or prediabetes All adults beginning at age 45 and adults without symptoms at any age who are overweight or obese and have 1 or more additional risk factors for diabetes At least every 3 years Alcohol misuse All women in this age group At routine exams Blood pressure All women in this age group Every 2 years if your blood pressure is less than 120/80 mm Hg; yearly if your systolic blood pressure is 120 to 139 mm Hg, or your diastolic blood pressure reading is 80 to 89 mm Hg Breast cancer All women in this age group Yearly mammogram and clinical breast exam1 Cervical cancer Only women who had abnormal screening results before age 65 Talk with your healthcare provider Chlamydia Women at increased risk for infection At routine exams Colorectal cancer All women in this age group1 Flexible sigmoidoscopy every 5 years, or colonoscopy every 10 years, or double- contrast barium enema every 5 years; yearly fecal occult blood test or fecal immunochemical test; or a stool DNA test asoften as your healthcare provider advises; talk with your healthcare provider about which tests arebest for you Depression All women in this age group At routine exams Gonorrhea Sexually active women at increased risk for infection At routine exams Hepatitis C Anyone at increased risk; 1 time for those born between 1945 and 1964 At routine exams High cholesterol or triglycerides All women in this age group who are at risk for coronary artery disease At least every 5 years HIV Women at increased risk for infection ??? talk with your healthcare provider At routine exams Lung cancer Adults age 55 to 80 who have smoked Yearly screening in smokers with 30 pack-year history of smoking or who quit within 15 years Obesity All women in this age group At routine exams Osteoporosis All women in this age group Bone density test at age 65, then follow-up as advised by your healthcare provider Syphilis Women at increased risk for infection ??? talk with your healthcare provider At routine exams Thyroid-Stimulating Hormone (TSH) All women in this age group Every 5 years Tuberculosis Women at increased risk for infection ??? talk with your healthcare provider Ask your healthcare provider Vision All women in this age group Every 1 to 2 years; if you have a chronic health condition, ask your healthcare provider if you need exams more often Vaccine Who needs it How often Chickenpox (varicella) All women in this age group who have no record of this infection or vaccine 2 doses; second dose should be given at least 4 weeks after the first dose Hepatitis A Women at increased risk for infection ??? talk with your healthcare provider 2 doses given 6 months apart Hepatitis B Women at increased risk for infection ??? talk with your healthcare provider 3 doses over 6 months; second dose should be given 1 month after the first dose; the third dose should be given at least 2 months after the second dose and at least 4 months after the first dose Haemophilus influenza??Type B (HIB) Women at increased risk for infection ??? talk with your healthcare provider 1 to 3 doses Influenza (flu) All women in this age group Once a year Pneumococcal??conjugate vaccine (PCV13)??and pneumococcal polysaccharide??vaccine (PPSV23) All women in this age group 1 dose of each vaccine Tetanus/diphtheria/pertussis (Td/Tdap) booster All women in this age group Td every 10 years, or a one-time dose of Tdap instead of a Td booster after age 18, then Td every 10 years Zoster All women in this age group 1 dose Counseling Who needs it How often Diet and exercise Women who are overweight or obese When diagnosed, and then at routine exams Fall prevention (exercise and vitamin D supplements) All women in this age group At routine exams Sexually transmitted infection prevention Women at increased risk for infection ??? talk with your healthcare provider At routine exams Use of daily aspirin Women ages 55 and up in this age group who are at risk for cardiovascular health problems such as stroke When your risk is known Use of tobacco and the health effects it can cause All women in this age group Every exam 1American Cancer Society ?? 9388-[address] [employer] [place] [address], [place] [address]. All rights reserved. This information is not intended as a substitute for professional medical care. Always follow your healthcare professional's instructions. Patient Care team information Care Team Personnel Name: Evangelina Houston RN Position: [facility] RN Member Role: Primary Care Nurse Name: Jim Bhatti MD Position: [facility] Cardiology MD Member Role: Lifetime Consulting Physician Address: Address: [address] [place] [address], [address] [facility] [place] [address]- Name: Jeanette Jimenez MD Position: [facility] Physician - Primary Care Member Role: PCP Address: Address: [address] [place] [address] [address] [place] [address]- Name: Justa Gong RN Position: [facility] AMB Nurse Member Role: Primary Care Nurse Care Team Related Persons Name: GARY RODRÍGUEZ Name: WHITNEY MTZ Address: home [address] [place] [address] Name: PHILIP AUGUSTE Name: DEANDRE LUGO Address: home [address] [place] [address]
--- OUTSIDE RECORDS SUMMARY | 2023-09-22 18:05 | XMS_ITS | Continuity of Care Document ---
Author Name Unknown Organization [facility] Adult Address [address] [place] [address]- Care Team Providers Care Hammerer Name Role Phone Tony FLORES, Jeanette Primary Care Physician Encounter [facility] [place] Date(s): 03/15/22 - 04/14/22 [facility] Adult [address] [place] [address]- Allergies, Adverse Reactions, Alerts Substance Reaction Severity [...] Mouth, Daily, # 90 tablet, 1 Refills, [facility] #[id number], 150.6, cm, 12/29/2214:17:00 EDT, Height Start Date: 01/19/22 Status: Ordered gabapentin 300 mg oral capsule 1, capsule, By Mouth, Daily at bedtime, # 90 capsule, Refills 0, Route to Pharmacy Electronically, [facility] #[id number], 150.6, cm, 12/29/21 15:17:00 EDT, Height Start Date: 01/27/22 Status: Ordered irbesartan 300 mg oral tablet 1 tablet, By Mouth, Daily, # 90 tablet, 0 Refills, [facility] #68058, 150.6, cm, :17:00 EDT, Height Start Date: 03/12/22 Status: Ordered irbesartan 300 mg oral tablet 1 tablet, By Mouth, Daily, # 90 tablet, 0 Refills, [facility] #41775, 150.6, cm, :17:00 EDT, Height Start Date: 03/12/22 Status: Ordered irbesartan 300 mg oral tablet See Instructions, TAKE 1 TABLET BY MOUTH DAILY, # 90 tablet, 0 Refills, [facility] #20013, 150.6, cm, 03/04/22 8:17:00 EDT, Height Start Date: 03/12/22 Status: Ordered montelukast 10 mg oral tablet 10 mg, 1, tablet, By Mouth, Daily at bedtime, # 90 tablet, Refills 3, Tot. Refills 3, Maintenance, 09/05/19 9:52:07 EST, Route to Pharmacy Electronically, NCPDP_[id number], [facility] [address], 150, cm, 07/10/19 14:06:31 EDT, Height, [...]
--- OUTSIDE RECORDS SUMMARY | 2023-09-22 18:05 | XMS_ITS | Continuity of Care Document ---
Author Name Unknown Organization [facility] Adult Address [address] [place] [address]- Care Team Providers Care Child Support Agent Name Role Phone Tony FLORES, Jeanette Primary Care Physician [place] [facility] [place](s): 11/02/19 - 11/09/19 [facility] Adult [address] [place] [address]- [facility] Attending Physician: Jeanette Jimenez MD [...] 09/05/19 9:52:16 EST, Route to Pharmacy Electronically, NCPDP_[id number], [facility] [address] [facility], 150, cm, 07/10/19 14:06:31 EDT, Height, [...] 09/05/19 9:52:07 EST, Route to Pharmacy Electronically, NCPDP_[id number], [facility] [address], 150, cm, 07/10/19 14:06:31 EDT, Height, 107.1, kg,... Start Date: 12/11/19 Status: Ordered Ocuvite 1 tablet, By Mouth, Daily, 0 Refills, Maintenance, 10/31/18 14:30:41 EST Start Date: 10/31/18 Status: Ordered Readi-Cat 2 2.1% oral suspension See Instructions, Please follow CT prep instructions, # 2 each, 0 Refills, Maintenance, 10/22/19 15:28:00 EST, [facility] [address], Please follow CT prep instructions, 150.6, cm, [...]
--- OUTSIDE RECORDS SUMMARY | 2023-09-22 18:05 | XMS_ITS | Continuity of Care Document ---
Author Name Unknown Organization [facility] Adult Address [address] [place] [address]- Care Team Providers Care Support Services Coordinator Name Role Phone Tony FLORES, Jeanette Primary Care Physician Encounter [facility] [place] Date(s): 10/13/21 - 11/12/21 [facility] Adult [address] [place] [address]- Attending Physician: Harrison Russo Admitting Physician: Harrison [...] Status: Ordered amLODIPine 5 mg oral tablet 1 tablet, By Mouth, Daily, # 90 tablet, 0 Refills, [facility] #[id number], 150.6, cm, 09/05/2016:37:00 EST, Height Start Date: 09/21/21 Status: Ordered aspirin 81 mg oral tablet 1 tablet = 81 mg, By Mouth, Daily, # 30 tablet, 0 Refills, Maintenance, 03/15/19 13:40:19 EDT, Tablet Start Date: 03/15/19 Stop Date: 04/14/19 Status: Ordered atorvastatin 20 mg oral tablet 1 tablet, By Mouth, Daily, # 90 tablet, 0 Refills, [facility] #19554, 150.6, cm, 09/05/2016:37:00 EST, Height Start Date: 09/21/21 Status: Ordered gabapentin 300 mg oral capsule 1, capsule, By Mouth, Daily at bedtime, # 90 capsule, Refills 0, Route to Pharmacy Electronically, [facility] #[id number], 150.6, cm, 09/05/20 16:37:00 EST, Height Start Date: 09/21/21 Status: Ordered irbesartan 300 mg oral tablet 1 tablet, By Mouth, Daily, # 90 tablet, 0 Refills, [facility] #22082, 150.6, cm, 09/05/2016:37:00 EST, Height Start Date: 09/21/21 Status: Ordered montelukast 10 mg oral tablet 10 mg, 1, tablet, By Mouth, Daily at bedtime, # 90 tablet, Refills 3, Tot. Refills 3, Maintenance, 09/05/19 9:52:07 EST, Route to Pharmacy Electronically, NCPDP_[id number], [facility] [address], 150, cm, 07/10/19 14:06:31 EDT, Height, [...]
--- OUTSIDE RECORDS SUMMARY | 2023-09-22 18:05 | XMS_ITS | Continuity of Care Document ---
Author Name Unknown Organization [facility] Adult Address [address] [place] [address]- Care Team Providers Care Electronics Engineer Name Role Phone Tony FLORES, Jeanette Primary Care Physician [phone] Encounter [facility] [place] Date(s): 12/10/20 - 04/09/21 [facility] Adult [address] [place] [address]- Attending Physician: Jeanette Jimenez MD Allergies, Adverse [...] 09/08/20 14:44:00 EST, Route to Pharmacy Electronically, [facility] #[id number], 150.6, cm, 09/05/20 16:37:00 EST, Height, 107.1, [...] 3 Refills, Maintenance, 09/08/20 14:45:00 EST, Tablet, [facility] #78952, 150.6, cm, 09/05/20 16:37:00 EST, Height, 107.1, kg, 07/10/19 14:06:00 EDT, Dry Weight Start Date: 09/08/20 Status: Ordered gabapentin 300 mg oral capsule 300 mg, 1, capsule, By Mouth, Daily at bedtime, # 90 capsule, Refills 3, Tot. Refills 3, Maintenance, 09/08/20 14:46:00 EST, Route to Pharmacy Electronically, [facility] #[id number], 150.6, cm, 09/05/20 16:37:00 EST, Height, 107.1, kg, 07/10/19 1... Start Date: 09/08/20 Status: Ordered irbesartan 300 mg oral tablet 1 tablet = 300 mg, By Mouth, Daily, # 90 tablet, 3 Refills, Maintenance, 09/08/20 14:43:00 EST, Tablet, [facility] #[id number], 150.6, cm, 09/05/20 16:37:00 EST, Height, 107.1, kg, 07/10/19 14:06:00 EDT, Dry Weight Start Date: 09/08/20 Status: Ordered montelukast 10 mg oral tablet 10 mg, 1, tablet, By Mouth, Daily at bedtime, # 90 tablet, Refills 3, Tot. Refills 3, Maintenance, 09/05/19 9:52:07 EST, Route to Pharmacy Electronically, NCPDP_[id number], [facility] [address] [place] [address] 150, cm, 07/10/19 14:06:31 EDT, Height, 107.1, [...]
--- OUTSIDE RECORDS SUMMARY | 2023-09-22 18:05 | XMS_ITS | Continuity of Care Document ---
Author Name Unknown Organization [facility] Adult Address [address] [place] [address]- Care Team Providers Care Machine Setter Name Role Phone Tony FLORES, Jeanette Primary Care Physician [phone] [place] [facility] [place](s): 07/06/23 - 08/05/23 [facility] Adult [address] [place] [address]- Allergies, Adverse Reactions, Alerts Substance Reaction Severity [...] tablet, 0 Refills, Maintenance, 06/07/23 10:30:00 EDT, Replaced By [facility], 158, cm, 03/14/23 11:23:00 EDT, Height, 96.1, kg, 03/10/23 12:51:00 EDT, Dry Weight Start Date: 06/07/23 Status: Ordered gabapentin 300 mg oral capsule 1, capsule, By Mouth, Daily at bedtime, # 90 capsule, Refills 0, Tot. Refills 0, Maintenance, 06/07/23 17:56:00 EDT, Route to Pharmacy Electronically, [facility], 158, cm, 03/14/23 11:23:00 EDT, Height, 96.1, kg, 03/10/23 12:51:00 EDT, Start Date: 06/07/23 Status: Ordered Lasix 40 mg oral tablet 40 mg, 1, tablet, By Mouth, Daily, # 90 tablet, Refills 0, Tot. Refills 0, Maintenance, 07/08/23 13:58:00 EDT, Route to Pharmacy Electronically, [facility] #[id number], Partial fill upon patientrequest if the prescription is for a schedule II op... Start Date: 07/08/23 Status: Ordered losartan 50 mg oral tablet 50 mg, 1, tablet, By Mouth, Daily, # 90 tablet, Refills 0, Tot. Refills 0, Maintenance, 06/07/23 10:30:00 EDT, Route to Pharmacy Electronically, [facility], Partial fill upon patient request if the prescription is for a schedule II opioid... Start Date: 06/07/23 Status: Ordered montelukast 10 mg oral tablet 10 mg, 1, tablet, By Mouth, Daily at bedtime, # 90 tablet, Refills 0, Tot. Refills 0, Maintenance, 06/07/23 10:30:00 EDT, Route to Pharmacy Electronically, [facility], 158, cm, 03/14/23 11:23:00 EDT, Height, 96.1, kg, 03/10/23 12:51:00 ED... Start Date: 06/07/23 Status: Ordered Vitamin B12 1000 mcg oral tablet 1 tablet = 1,000 mcg, By Mouth, Daily, # 90 tablet, 1 Refills, Maintenance, 07/08/23 22:07:00 EDT, Tablet, [facility] #[id number], Partial fill upon patient request if the [...] Team Personnel Name: Evangelina Houston RN Position: [facility] RN Member Role: Primary Care Nurse Name: Jim Bhatti MD Position: [facility] Cardiology MD Member Role: Lifetime Consulting Physician Address: Address: [address] [place] [address], [address] [facility] [place] [address]- Name: Jeanette Jimenez MD Position: [facility] Physician - Primary Care Member Role: PCP Address: Address: [address] [facility] [address]rd [place] [address]- Name: Justa Gong RN Position: [facility] Nurse Member Role: Primary Care Nurse Care Team Related Persons Name: GARY RODRÍGUEZ Name: WHITNEY MTZ Address: home [address] [place] [address] Name: PHILIP AUGUSTE Name: DEANDRE LUGO Address: home [address] [place] [address]
--- OUTSIDE RECORDS SUMMARY | 2023-09-22 18:05 | XMS_ITS | Continuity of Care Document ---
Author Name Unknown Organization [facility] Adult Address [address] [place] [address]- Care Team Providers Care Tobacco Prevention Health Educator Name Role Phone Tony FLORES, Jeanette Primary Care Physician [phone] [place] [facility] [place](s): 06/07/23 - 07/07/23 [facility] Adult [address] [place] [address]- Allergies, Adverse Reactions, Alerts Substance Reaction Severity [...] EDT, Tablet Start Date: 03/15/19 Stop Date: 7/20/19 Status: Ordered atorvastatin 20 mg oral tablet 1 tablet, By Mouth, Daily, # 90 tablet, 0 Refills, Maintenance, 06/07/23 10:30:00 EDT, [facility], 158, cm, 03/14/23 11:23:00 EDT, Height, 96.1, kg, 03/10/23 12:51:00 EDT, Dry Weight Start Date: 06/07/23 Status: Ordered gabapentin 300 mg oral capsule 1, capsule, By Mouth, Daily at bedtime, # 90 capsule, Refills 0, Tot. Refills 0, Maintenance, 06/07/23 17:56:00 EDT, Route to Pharmacy Electronically, [facility], 158, cm, 03/14/23 11:23:00 EDT, Height, 96.1, kg, 03/10/23 12:51:00 EDT, Start Date: 06/07/23 Status: Ordered losartan 50 mg oral tablet 50 mg, 1, tablet, By Mouth, Daily, # 90 tablet, Refills 0, Tot. Refills 0, Maintenance, 06/07/23 10:30:00 EDT, Route to Pharmacy Electronically, [facility], Partial fill upon patient request if the prescription is for a schedule II opioid... Start Date: 06/07/23 Status: Ordered montelukast 10 mg oral tablet 10 mg, 1, tablet, By Mouth, Daily at bedtime, # 90 tablet, Refills 0, Tot. Refills 0, Maintenance, 06/07/23 10:30:00 EDT, Route to Pharmacy Electronically, [facility], 158, cm, 03/14/23 11:23:00 EDT, Height, 96.1, kg, 03/10/23 12:51:00 ED... Start Date: 06/07/23 Status: Ordered Problem List Condition Confirmation Course Effective Dates Status H ealth Status Informant Aortic stenosis 1 Confirmed Active Weakness Confirmed Active Chronic low back pain Confirmed Active Hyperlipidemia Confirmed Active HTN (hypertension) Confirmed Active Hypokalemia Confirmed Active Memory deficits Confirmed Active Urinary retention Confirmed Active Severe obesity Confirmed Active UTI (urinary tract infection) Confirmed Active 1s/p TAVR Social History Social History Type Response Smoking Status Never (less than 100 in lifetime) entered on: 10/18/19 Sex Patient Care team information Care Team Personnel Name: Evangelina Houston RN Position: [facility] RN Member Role: Primary Care Nurse Name: Jim Bhatti MD Position: [facility] Cardiology MD Member Role: Lifetime Consulting Physician Address: Address: [address] [place] [address], [address] [facility] [place] [address]- Name: Jeanette Jimenez MD Position: [facility] Physician - Primary Care Member Role: PCP Address: Address: [address] [place] [address] [address]rd [place] [address]- Name: Justa Gong RN Position: [facility] Nurse Member Role: Primary Care Nurse Care Team Related Persons Name: GARY RODRÍGUEZ Name: WHITNEY MTZ Address: home [address] [place] [address] Name: PHILIP AUGUSTE Name: DEANDRE LUGO Address: home [address] [place] [address]
--- OUTSIDE RECORDS SUMMARY | 2023-09-22 18:05 | XMS_ITS | Continuity of Care Document ---
Author Name Unknown Organization [facility] Address [address] [place] [address]- Care Team Providers Care Eyeglass Frame Truer Name Role Phone Tony FLORES, Jeanette Primary Care Physician Encounter [facility] [place] Date(s): 09/10/20 - 10/10/20 [facility] [address] [place] [id number] Attending Physician: Admtr, [id number] Admitting Physician: Admtr, Ar8 Referring Physician: Admtr, Ar8 Allergies, Adverse Reactions, Alerts Substance Reaction Severity [...] 09/08/20 14:44:00 EST, Route to Pharmacy Electronically, [facility] #02200, 150.6, cm, 09/05/20 16:37:00 EST, Height, 107.1, [...] 3 Refills, Maintenance, 09/08/20 14:45:00 EST, Tablet, [facility] #03405, 150.6, cm, 09/05/20 16:37:00 EST, Height, 107.1, kg, 07/10/19 14:06:00 EDT, Dry Weight Start Date: 09/08/20 Status: Ordered gabapentin 300 mg oral capsule 300 mg, 1, capsule, By Mouth, Daily at bedtime, # 90 capsule, Refills 3, Tot. Refills 3, Maintenance, 09/08/20 14:46:00 EST, Route to Pharmacy Electronically, [facility] #02049, 150.6, cm, 09/05/20 16:37:00 EST, Height, 107.1, kg, 07/10/19 1... Start Date: 09/08/20 Status: Ordered irbesartan 300 mg oral tablet 1 tablet = 300 mg, By Mouth, Daily, # 90 tablet, 3 Refills, Maintenance, 09/08/20 14:43:00 EST, Tablet, [facility] #60111, 150.6, cm, 09/05/20 16:37:00 EST, Height, 107.1, kg, 07/10/19 14:06:00 EDT, Dry Weight Start Date: 09/08/20 Status: Ordered montelukast 10 mg oral tablet 10 mg, 1, tablet, By Mouth, Daily at bedtime, # 90 tablet, Refills 3, Tot. Refills 3, Maintenance, 09/05/19 9:52:07 EST, Route to Pharmacy Electronically, NCPDP_[id number], [facility] [address], 150, cm, 07/10/19 14:06:31 EDT, Height, [...]
--- OUTSIDE RECORDS SUMMARY | 2023-09-22 18:05 | XMS_ITS | Continuity of Care Document ---
Author Name Unknown Organization [facility] Adult Address [address] [place] [address]- Care Team Providers Care Herb Grower Name Role Phone Tony FLORES, Jeanette Primary Care Physician [place] [facility] [place]05[place]20 - 09/12/20 [facility] [address] [place] [address]- Encounter Diagnosis Medicare annual wellness visit, subsequent(Discharge Diagnosis) - 09/05/20 Aortic stenosis(Discharge Diagnosis) - 09/05/20 Chronic low back pain(Discharge Diagnosis) - 09/05/20 HTN (hypertension)(Discharge Diagnosis) - 09/05/20 Hyperlipidemia(Discharge Diagnosis) - 09/05/20 Attending Physician: Jeanette Jimenez MD Allergies, Adverse [...] 09/08/20 14:44:00 EST, Route to Pharmacy Electronically, [facility] #[id number], 150.6, cm, 09/05/20 16:37:00 EST, Height, 107.1, [...] 3 Refills, Maintenance, 09/08/20 14:45:00 EST, Tablet, [facility] #14859, 150.6, cm, 09/05/20 16:37:00 EST, Height, 107.1, kg, 07/10/19 14:06:00 EDT, Dry Weight Start Date: 09/08/20 Status: Ordered gabapentin 300 mg oral capsule 300 mg, 1, capsule, By Mouth, Daily at bedtime, # 90 capsule, Refills 3, Tot. Refills 3, Maintenance, 09/08/20 14:46:00 EST, Route to Pharmacy Electronically, [facility] #86371, 150.6, cm, 09/05/20 16:37:00 EST, Height, 107.1, kg, 07/10/19 1... Start Date: 09/08/20 Status: Ordered irbesartan 300 mg oral tablet 1 tablet = 300 mg, By Mouth, Daily, # 90 tablet, 3 Refills, Maintenance, 09/08/20 14:43:00 EST, Tablet, [facility] #11342, 150.6, cm, 09/05/20 16:37:00 EST, Height, 107.1, kg, 07/10/19 14:06:00 EDT, Dry Weight Start Date: 09/08/20 Status: Ordered montelukast 10 mg oral tablet 10 mg, 1, tablet, By Mouth, Daily at bedtime, # 90 tablet, Refills 3, Tot. Refills 3, Maintenance, 09/05/19 9:52:07 EST, Route to Pharmacy Electronically, NCPDP_[id number], [facility] [address], 150, cm, 07/10/19 14:06:31 EDT, Height, 107.1, kg,... Start Date: 09/05/19 Status: Ordered Ocuvite 1 tablet, By Mouth, Daily, 0 Refills, Maintenance, 10/31/18 14:30:41 EST Start Date: 10/31/18 Status: Ordered Problem List Condition Effective Dates Status Health Status Inform ant Aortic stenosis(Confirmed) 1 Active Chronic low back pain(Confirmed) Active Hyperlipidemia(Confirmed) Active HTN (hypertension)(Confirmed) Active 1s/p TAVR Diagnosis Diagnosis Type Effective Dates Health Status Clinical Service Informant Medicare annual wellness visit, subsequent Discharge Diagnosis 09/05/20 Aortic stenosis Discharge Diagnosis 09/05/20 Chronic low back pain Discharge Diagnosis 09/05/20 HTN (hypertension) Discharge Diagnosis 09/05/20 Hyperlipidemia Discharge Diagnosis 09/05/20 Vital Signs Most recent to oldest [Reference Range]: 1 Height 150.6 cm (09/05/20 2:56 PM) Social History Social History Type Response Smoking Status Never (less than 100 in lifetime) entered on: 10/18/19 Sex
--- OUTSIDE RECORDS SUMMARY | 2023-09-22 18:05 | XMS_ITS | Continuity of Care Document ---
Author Name Unknown Organization [facility] Adult Address [address] [place] [address]- Care Team Providers Care Svp Business Development Name Role Phone Tony FLORES, Jeanette Primary Care Physician En[place] [facility] [place] Date(s): 12/30/21 - 01/29/22 [facility] Adult [address] [place] [address]- Allergies, Adverse Reactions, Alerts Substance Reaction Severity Status doxycycline Active tetracycline Active ketolides Active Pneumovax 23 Active penicillin 1 progressive rash on face Act aris macrolide antibiotics Active shellfish 2 Active 1lips swell and rash [...] Mouth, Daily, # 90 tablet, 1 Refills, [facility] #[id number], 150.6, cm, 12/29/2214:17:00 EDT, Height Start Date: 01/19/22 Status: Ordered gabapentin 300 mg oral capsule 1, capsule, By Mouth, Daily at bedtime, # 90 capsule, Refills 0, Route to Pharmacy Electronically, [facility] #[id number], 150.6, cm, 12/29/21 15:17:00 EDT, Height Start Date: 01/27/22 Status: Ordered irbesartan 300 mg oral tablet 1 tablet, By Mouth, Daily, # 90 tablet, 0 Refills, [facility] #48887, 150.6, cm, 09/05/2016:37:00 EST, Height Start Date: 09/21/21 Status: Ordered montelukast 10 mg oral tablet 10 mg, 1, tablet, By Mouth, Daily at bedtime, # 90 tablet, Refills 3, Tot. Refills 3, Maintenance, 09/05/19 9:52:07 EST, Route to Pharmacy Electronically, NCPDP_[id number], [facility] [address], 150, cm, 07/10/19 14:06:31 EDT, Height, [...]
--- OUTSIDE RECORDS SUMMARY | 2023-09-22 18:05 | XMS_ITS | Continuity of Care Document ---
Author Name Unknown Organization [facility] Adult Address [address] [place] [address]- Care Team Providers Care Marketing Compliance Manager Name Role Phone Tony FLORES, Jeanette Primary Care Physician Encounter [facility] [place] Date(s): 11/25/21 - 12/25/21 [facility] [address] [place] [address]- Allergies, Adverse Reactions, Alerts Substance Reaction Severity Status doxycycline Active tetracycline Active penicillin 1 progressive rash on face Act aris Pneumovax 23 Active ketolides Active shellfish 2 Active macrolide antibiotics Active 1lips swell and [...] Mouth, Daily, # 90 tablet, 0 Refills, [facility] #[id number], 150.6, cm, 09/05/2016:37:00 EST, Height Start Date: 09/21/21 Status: Ordered aspirin 81 mg oral tablet 1 tablet = 81 mg, By Mouth, Daily, # 30 tablet, 0 Refills, Maintenance, 03/15/19 13:40:19 EDT, Tablet Start Date: 03/15/19 Stop Date: 04/14/19 Status: Ordered atorvastatin 20 mg oral tablet 1 tablet, By Mouth, Daily, # 90 tablet, 0 Refills, [facility] #31731, 150.6, cm, 09/05/2016:37:00 EST, Height Start Date: 09/21/21 Status: Ordered gabapentin 300 mg oral capsule 1, capsule, By Mouth, Daily at bedtime, # 90 capsule, Refills 0, Route to Pharmacy Electronically, [facility] #80673, 150.6, cm, 09/05/20 16:37:00 EST, Height Start Date: 09/21/21 Status: Ordered irbesartan 300 mg oral tablet 1 tablet, By Mouth, Daily, # 90 tablet, 0 Refills, [facility] #50553, 150.6, cm, 09/05/2016:37:00 EST, Height Start Date: 09/21/21 Status: Ordered montelukast 10 mg oral tablet 10 mg, 1, tablet, By Mouth, Daily at bedtime, # 90 tablet, Refills 3, Tot. Refills 3, Maintenance, 09/05/19 9:52:07 EST, Route to Pharmacy Electronically, NCPDP_ID-[id number], [facility] [address] [facility], 150, cm, 07/10/19 14:06:31 EDT, [...]
--- OUTSIDE RECORDS SUMMARY | 2023-09-22 18:05 | XMS_ITS | Continuity of Care Document ---
Author Name Unknown Organization [facility] Address [address] [place] [address]- Care Team Providers Care Sergeant Of Officers Name Role Phone Jeanette Jimenez MD Primary Care Physician Encounter [facility] [place] Date(s): 04/07/20 - 06/29/20 [facility] [address] [place] [address] [facility] Attending Physician: Denisse Frank NP Admitting Physician: Denisse Frank NP Referring Physician: Jeanette Jimenez MD Allergies, Adverse [...] 12/05/19 11:46:00 EDT, Route to Pharmacy Electronically, [facility] #[id number], 150.6, cm, 12/05/19 11:26:00 EDT, Height, 107.1, [...] Acute 01/02/21 10:05:00 EDT, 01/03/20 10:04:00 EDT, [facility] #[id number], 150.6, cm, 12/19/19 10:53:00 EDT, Height, 107.1, [...] 12/19/19 11:21:00 EDT, Route to Pharmacy Electronically, [facility] #[id number], 150.6, cm, 12/19/19 10:53:00 EDT, Height, 107.1, [...] 09/05/19 9:52:07 EST, Route to Pharmacy Electronically, NCPDP_[id number], [facility] [address] [place] [address], 150, cm, 07/10/19 14:06:31 EDT, Height, 107.1, kg,... Start Date: 09/05/19 Status: Ordered Ocuvite 1 tablet, By Mouth, Daily, 0 Refills, Maintenance, 10/31/18 14:30:41 EST Start Date: 10/31/18 Status: Ordered Readi-Cat 2 2.1% oral suspension See Instructions, Please follow CT prep instructions, # 2 each, 0 Refills, Maintenance, 10/22/19 15:28:00 EST, [facility] [address] [place] [address], Please [address] prep instructions, 150.6, cm, 10/18/19 11:03:00 EST, Height, 107.1, kg, 07/10/19 14:06:00 EDT,... Start Date: 10/22/19 Status: Ordered Problem List Condition Effective Dates Status Health Status Inform ant Aortic stenosis(Confirmed) 1 Active Chronic low back pain(Confirmed) Active Hyperlipidemia(Confirmed) Active HTN (hypertension)(Confirmed) Active 1s/p TAVR Vital Signs Most recent to oldest [Reference Range]: 1 Height 150.6 cm (05/30/20 10:02 AM) Social History Social History Type Response Smoking Status Never (less than 100 in lifetime) entered on: 10/18/19 Sex
--- OUTSIDE RECORDS SUMMARY | 2023-09-22 18:05 | XMS_ITS | Continuity of Care Document ---
Author Name Unknown Organization [facility] Adult Address [address] [place] [address]- Care Team Providers Care Molded Parts Inspector Name Role Phone Tony FLORES, Jeanette Primary Care Physician [place] [facility] [place]s): 12/29/21 - 01/28/22 [facility] Adult [address] [place] [address]- Attending Physician: Harrison Russo Admitting Physician: Harrison [...] Mouth, Daily, # 90 tablet, 1 Refills, [facility] #[id number], 150.6, cm, 12/29/2214:17:00 EDT, Height Start Date: 01/19/22 Status: Ordered gabapentin 300 mg oral capsule 1, capsule, By Mouth, Daily at bedtime, # 90 capsule, Refills 0, Route to Pharmacy Electronically, [facility] #[id number], 150.6, cm, 12/29/21 15:17:00 EDT, Height Start Date: 01/27/22 Status: Ordered irbesartan 300 mg oral tablet 1 tablet, By Mouth, Daily, # 90 tablet, 0 Refills, [facility] #[id number], 150.6, cm, 09/05/2016:37:00 EST, Height Start Date: 09/21/21 Status: Ordered montelukast 10 mg oral tablet 10 mg, 1, tablet, By Mouth, Daily at bedtime, # 90 tablet, Refills 3, Tot. Refills 3, Maintenance, 09/05/19 9:52:07 EST, Route to Pharmacy Electronically, NCPDP_[id number], [facility] [address], 150, cm, 07/10/19 14:06:31 EDT, Height, [...]
--- OUTSIDE RECORDS SUMMARY | 2023-09-22 18:05 | XMS_ITS | Continuity of Care Document ---
Author Name Unknown Organization [facility] Adult Address [address] [place] [address]- Care Team Providers Care Lymphedema Therapist Name Role Phone Tony FLORES, Jeanette Primary Care Physician [place] [facility] [place] 07/27/23 - 08/26/23 [facility] Adult [address] [place] [address]- Allergies, Adverse Reactions, Alerts Substance Reaction Severity [...] tablet, 0 Refills, Maintenance, 06/07/23 10:30:00 EDT, On [facility] Of [facility], 158, cm, 03/14/23 11:23:00 EDT, Height, 96.1, kg, 03/10/23 12:51:00 EDT, Dry Weight Start Date: 06/07/23 Status: Ordered gabapentin 300 mg oral capsule 1, capsule, By Mouth, Daily at bedtime, # 90 capsule, Refills 0, Tot. Refills 0, Maintenance, 06/07/23 17:56:00 EDT, Route to Pharmacy Electronically, [facility], 158, cm, 03/14/23 11:23:00 EDT, Height, 96.1, kg, 03/10/23 12:51:00 EDT, Start Date: 06/07/23 Status: Ordered Lasix 40 mg oral tablet 40 mg, 1, tablet, By Mouth, Daily, # 90 tablet, Refills 0, Tot. Refills 0, Maintenance, 07/08/23 13:58:00 EDT, Route to Pharmacy Electronically, [facility] #[id number], Partial fill upon patientrequest if the prescription is for a schedule II op... Start Date: 07/08/23 Status: Ordered losartan 50 mg oral tablet 50 mg, 1, tablet, By Mouth, Daily, # 90 tablet, Refills 0, Tot. Refills 0, Maintenance, 06/07/23 10:30:00 EDT, Route to Pharmacy Electronically, [facility], Partial fill upon patient request if the prescription is for a schedule II opioid... Start Date: 06/07/23 Status: Ordered montelukast 10 mg oral tablet 10 mg, 1, tablet, By Mouth, Daily at bedtime, # 90 tablet, Refills 0, Tot. Refills 0, Maintenance, 06/07/23 10:30:00 EDT, Route to Pharmacy Electronically, [facility], 158, cm, 03/14/23 11:23:00 EDT, Height, 96.1, kg, 03/10/23 12:51:00 ED... Start Date: 06/07/23 Status: Ordered Vitamin B12 1000 mcg oral tablet 1 tablet = 1,000 mcg, By Mouth, Daily, # 90 tablet, 1 Refills, Maintenance, 07/08/23 22:07:00 EDT, Tablet, [id number], Partial fill upon patient request if the [...] Team Personnel Name: Evangelina Houston RN Position: [facility] RN Member Role: Primary Care Nurse Name: Magy FLORES, Jim Cheney Position: [facility] Cardiology MD Member Role: Lifetime Consulting Physician Address: Address: [address] [place] [address], [address] [facility] [place] [address]- Name: Jeanette Jimenez MD Position: [facility] Physician - Primary Care Member Role: PCP Address: Address: [address] [place] [address] [address] [place] [address]- Name: Farideh ROSARIO, Justa Position: [facility] Nurse Member Role: Primary Care Nurse Care Team Related Persons Name: GARY RODRÍGUEZ Name: WHITNEY MTZ Address: home [address] [place] [address] Name: PHILIP AUGUSTE Name: DEANDRE LUGO Address: home [address] [place] [address]
--- OUTSIDE RECORDS SUMMARY | 2023-09-22 18:05 | XMS_ITS | Continuity of Care Document ---
Author Name Unknown Organization [facility] Address [address] [place] [address]- Care Team Providers Care Wafer Mounter Name Role Phone Jeanette Jimenez MD Primary Care Physician Encounter [facility] [place] Date(s): 02/19/20 - 05/04/20 [facility] [address] [place] [address]- [facility] Attending Physician: Denisse Frank NP Admitting Physician: [...] 12/05/19 11:46:00 EDT, Route to Pharmacy Electronically, [facility] #[id number], 150.6, cm, 12/05/19 11:26:00 EDT, Height, 107.1, kg, 07/10/19 14:06:00 EDT, Dr... Start Date: 12/05/19 Status: Ordered aspirin 81 [...] Acute 01/02/21 10:05:00 EDT, 01/03/20 10:04:00 EDT, [facility] #[id number], 150.6, cm, 12/19/19 10:53:00 EDT, Height, 107.1, [...] 12/19/19 11:21:00 EDT, Route to Pharmacy Electronically, [facility] #[id number], 150.6, cm, 12/19/19 10:53:00 EDT, Height, 107.1, [...] 09/05/19 9:52:07 EST, Route to Pharmacy Electronically, NCPDP_[id number], [address], 150, cm, 07/10/19 14:06:31 EDT, Height, 107.1, kg,... Start Date: 09/05/19 Status: Ordered Ocuvite 1 tablet, By Mouth, Daily, 0 Refills, Maintenance, 10/31/18 14:30:41 EST Start Date: 10/31/18 Status: Ordered Readi-Cat 2 2.1% oral suspension See Instructions, Please follow CT prep instructions, # 2 each, 0 Refills, Maintenance, 10/22/19 15:28:00 EST, [address], Please follow CT prep instructions, 150.6, cm, [...]
--- OUTSIDE RECORDS SUMMARY | 2023-09-22 18:05 | XMS_ITS | Continuity of Care Document ---
Author Name Unknown Organization [facility] Address [address] [place] [address]- Care Team Providers Care Labor Arbitrator Hearing Office Name Role Phone Tony FLORES, [place] Primary Care Physician [phone] Encounter [facility] [place](s): 09/08/20 - 10/09/20 [facility] [address] [place] [address]- Attending Physician: Not on Staff, Attending MD Allergies, Adverse Reactions, Alerts Substance Reaction [...] 09/08/20 14:44:00 EST, Route to Pharmacy Electronically, [facility] #[id number], 150.6, cm, 09/05/20 16:37:00 EST, Height, 107.1, kg, 07/10/19 14:06:00 EDTDr... Start Date: 09/08/20 Status: Ordered aspirin 81 mg oral tablet 1 tablet = 81 mg, By Mouth, Daily, # 30 tablet, 0 Refills, Maintenance, 03/15/19 13:40:19 EDT, Tablet Start Date: 03/15/19 Stop Date: 04/14/19 Status: Ordered atorvastatin 20 mg oral tablet 1 tablet = 20 mg, By Mouth, Daily, # 90 tablet, 3 Refills, Maintenance, 09/08/20 14:45:00 EST, Tablet, [facility] #[id number], 150.6, cm, 09/05/20 16:37:00 EST, Height, 107.1, kg, 07/10/19 14:06:00 EDT, Dry Weight Start Date: 09/08/20 Status: Ordered gabapentin 300 mg oral capsule 300 mg, 1, capsule, By Mouth, Daily at bedtime, # 90 capsule, Refills 3, Tot. Refills 3, Maintenance, 09/08/20 14:46:00 EST, Route to Pharmacy Electronically, [facility] #23058, 150.6, cm, 09/05/20 16:37:00 EST, Height, 107.1, kg, 07/10/19 1... Start Date: 09/08/20 Status: Ordered irbesartan 300 mg oral tablet 1 tablet = 300 mg, By Mouth, Daily, # 90 tablet, 3 Refills, Maintenance, 09/08/20 14:43:00 EST, Tablet, [facility] #[id number], 150.6, cm, 09/05/20 16:37:00 EST, Height, 107.1, kg, 07/10/19 14:06:00 EDT, Dry Weight Start Date: 09/08/20 Status: Ordered montelukast 10 mg oral tablet 10 mg, 1, tablet, By Mouth, Daily at bedtime, # 90 tablet, Refills 3, Tot. Refills 3, Maintenance, 09/05/19 9:52:07 EST, Route to Pharmacy Electronically, CTPDP_[id number], [facility] [address], 150, cm, 07/10/19 14:06:31 EDT, [...] than 100 in lifetime) entered on: 10/18/19 Sex"
--- OUTSIDE RECORDS SUMMARY | 2023-09-22 18:05 | XMS_ITS | Continuity of Care Document ---
Author Name Unknown Organization [facility] Adult Address [address] [place] [address]- Care Team Providers Care Belt Lacer Name Role Phone Tony FLORES, Jeanette Primary Care Physician [place] [facility] [place] 12/[place] - 01/05/22 [facility] Adult [address] [place] [address]- Encounter Diagnosis HTN (hypertension)(Discharge Diagnosis) - 12/29/21 Hyperlipidemia(Discharge Diagnosis) - 12/29/21 Memory loss(Discharge Diagnosis) - 01/03/22 Attending Physician: Jeanette Jimenez MD Allergies, Adverse [...] Mouth, Daily, # 90 tablet, 0 Refills, [facility] #[id number], 150.6, cm, 09/05/2016:37:00 EST, Height Start Date: 09/21/21 Status: Ordered gabapentin 300 mg oral capsule 1, capsule, By Mouth, Daily at bedtime, # 90 capsule, Refills 0, Route to Pharmacy Electronically, [facility] #[id number], 150.6, cm, 09/05/20 16:37:00 EST, Height Start Date: 09/21/21 Status: Ordered irbesartan 300 mg oral tablet 1 tablet, By Mouth, Daily, # 90 tablet, 0 Refills, [facility] #[id number], 150.6, cm, 09/05/2016:37:00 EST, Height Start Date: 09/21/21 Status: Ordered montelukast 10 mg oral tablet 10 mg, 1, tablet, By Mouth, Daily at bedtime, # 90 tablet, Refills 3, Tot. Refills 3, Maintenance, 09/05/19 9:52:07 EST, Route to Pharmacy Electronically, NCPDP_[id number], [facility] [address] [facility] [address], 150, cm, 07/10/19 14:06:31 EDT, [...] Effective Dates Health Status Clinical Service Informant HTN (hypertension) Discharge Diagnosis 12/29/21 Hyperlipidemia Discharge Diagnosis 12/29/21 Memory loss Discharge Diagnosis 01/03/22 Vital Signs Most recent to oldest [Reference Range]: 1 Height 150.6 cm (12/29/21 3:17 PM) Weight 110.5 kg (12/29/21 3:17 PM) Oxygen Saturation [94-100 %] 98 % (12/29/21 3:17 PM) Pulse Rate [55-90 bpm] 95 bpm *H* (12/29/21 3:17 PM) Body Mass Index [18.5-24.99] 48.72 *>HHI* (12/29/21 3:17 PM) Blood Pressure [90-138/55-84 mm Hg] 84/5 4mm Hg *L* (12/29/21 3:17 PM) Temperature [96.8-100.4 DegF] 98.1 DegF (12/29/21 3:17 PM) Mode of Delivery (Oxygen) Room air (12/29/21 3:17 PM) Blood pressure sites Arm, left (12/29/21 3:17 PM) Temperature Route Oral (12/29/21 3:17 PM) Weight Obtained Via Standing scale (12/29/21 3:17 PM) Social History Social History Type Response Smoking Status Never (less than 100 in lifetime) entered on: 10/18/19 Sex
--- OUTSIDE RECORDS SUMMARY | 2023-09-22 18:05 | XMS_ITS | Continuity of Care Document ---
Author Name Unknown Organization [facility] Adult Address [address] [place] [address]- Care Team Providers Care Correctional Corporal Name Role Phone Tony FLORES, Jeanette Primary Care Physician [phone] Encounter [facility] [place] Date(s): 05/31/23 - 06/30/23 [facility] Adult [address] [place] [id number]- Allergies, Adverse Reactions, Alerts Substance Reaction Severity [...] tablet, 0 Refills, Maintenance, 06/07/23 10:30:00 EDT, [facility], 158, cm, 03/14/23 11:23:00 EDT, Height, 96.1, kg, 03/10/23 12:51:00 EDT, Dry Weight Start Date: 06/07/23 Status: Ordered gabapentin 300 mg oral capsule 1, capsule, By Mouth, Daily at bedtime, # 90 capsule, Refills 0, Tot. Refills 0, Maintenance, 06/07/23 17:56:00 EDT, Route to Pharmacy Electronically, [facility], 158, cm, 03/14/23 11:23:00 EDT, Height, 96.1, kg, 03/10/23 12:51:00 EDT, Start Date: 06/07/23 Status: Ordered losartan 50 mg oral tablet 50 mg, 1, tablet, By Mouth, Daily, # 90 tablet, Refills 0, Tot. Refills 0, Maintenance, 06/07/23 10:30:00 EDT, Route to Pharmacy Electronically, [facility], Partial fill upon patient request if the prescription is for a schedule II opioid... Start Date: 06/07/23 Status: Ordered montelukast 10 mg oral tablet 10 mg, 1, tablet, By Mouth, Daily at bedtime, # 90 tablet, Refills 0, Tot. Refills 0, Maintenance, 06/07/23 10:30:00 EDT, Route to Pharmacy Electronically, [facility], 158, cm, 03/14/23 11:23:00 EDT, Height, [...] Team Personnel Name: Evangelina Houston RN Position: [facility] RN Member Role: Primary Care Nurse Name: Jim Bhatti MD Position: [facility] Cardiology MD Member Role: Lifetime Consulting Physician Address: Address: [address] [place] [address], [address] [facility] [place] [address]- Name: Jeanette Jimenez MD Position: [facility] Physician - Primary Care Member Role: PCP Address: Address: [address] [place] [address] 3rd [place] [address]- Name: Justa Gong RN Position: [facility] AMB Nurse Member Role: Primary Care Nurse Care Team Related Persons Name: GARY RODRÍGUEZ Name: WHITNEY MTZ Address: home [address] [place] [address] Name: PHILIP AUGUSTE Name: DEANDRE LUGO Address: home [address] [place] [address]
--- OUTSIDE RECORDS SUMMARY | 2023-09-22 18:05 | XMS_ITS | Continuity of Care Document ---
Author Name Unknown Organization [facility] Adult Address [address] [place] [address]- Care Team Providers Care Fresh Work Wrapper Layer Name Role Phone Tony FLORES, Jeanette Primary Care Physician En[facility] [place] Date(s): 06/18/21 - 11/12/21 [facility] [address] [place] [address]- Attending Physician: Jeanette Jimenez MD Allergies, Adverse [...] Mouth, Daily, # 90 tablet, 0 Refills, [facility] #[id number], 150.6, cm, 09/05/2016:37:00 EST, Height Start Date: 09/21/21 Status: Ordered aspirin 81 mg oral tablet 1 tablet = 81 mg, By Mouth, Daily, # 30 tablet, 0 Refills, Maintenance, 03/15/19 13:40:19 EDT, Tablet Start Date: 03/15/19 Stop Date: 04/14/19 Status: Ordered atorvastatin 20 mg oral tablet 1 tablet, By Mouth, Daily, # 90 tablet, 0 Refills, [facility] #40638, 150.6, cm, 09/05/2016:37:00 EST, Height Start Date: 09/21/21 Status: Ordered gabapentin 300 mg oral capsule 1, capsule, By Mouth, Daily at bedtime, # 90 capsule, Refills 0, Route to Pharmacy Electronically, [facility] #[id number], 150.6, cm, 09/05/20 16:37:00 EST, Height Start Date: 09/21/21 Status: Ordered irbesartan 300 mg oral tablet 1 tablet, By Mouth, Daily, # 90 tablet, 0 Refills, [facility] #67750, 150.6, cm, 09/05/2016:37:00 EST, Height Start Date: 09/21/21 Status: Ordered montelukast 10 mg oral tablet 10 mg, 1, tablet, By Mouth, Daily at bedtime, # 90 tablet, Refills 3, Tot. Refills 3, Maintenance, 09/05/19 9:52:07 EST, Route to Pharmacy Electronically, WVPDP_[id number], [facility] [address], 150, cm, 07/10/19 14:06:31 EDT, Height, [...]
--- OUTSIDE RECORDS SUMMARY | 2023-09-22 18:05 | XMS_ITS | Continuity of Care Document ---
Author Name Unknown Organization [facility] Adult Address [address] [place] [address]- Care Team Providers Care Fiberglass Technician Name Role Phone Tony FLORES, Jeanette Primary Care Physician En[place] [facility] [place] Date(s): 04/16/22 - 05/16/22 [facility] Adult [address] [place] [address]- Allergies, Adverse Reactions, Alerts Substance Reaction Severity [...] Mouth, Daily, # 90 tablet, 1 Refills, [facility] #[id number], 150.6, cm, 12/29/2214:17:00 EDT, Height Start Date: 01/19/22 Status: Ordered gabapentin 300 mg oral capsule 1, capsule, By Mouth, Daily at bedtime, # 90 capsule, Refills 0, Route to Pharmacy Electronically, [facility] #[id number], 150.6, cm, 12/29/21 15:17:00 EDT, Height Start Date: 01/27/22 Status: Ordered irbesartan 300 mg oral tablet 1 tablet, By Mouth, Daily, # 90 tablet, 0 Refills, [facility] #42832, 150.6, cm, :17:00 EDT, Height Start Date: 03/12/22 Status: Ordered irbesartan 300 mg oral tablet 1 tablet, By Mouth, Daily, # 90 tablet, 0 Refills, [facility] #59744, 150.6, cm, :17:00 EDT, Height Start Date: 03/12/22 Status: Ordered irbesartan 300 mg oral tablet See Instructions, TAKE 1 TABLET BY MOUTH DAILY, # 90 tablet, 0 Refills, [facility] #12445, 150.6, cm, 03/04/22 8:17:00 EDT, Height Start Date: 03/12/22 Status: Ordered montelukast 10 mg oral tablet 10 mg, 1, tablet, By Mouth, Daily at bedtime, # 90 tablet, Refills 3, Tot. Refills 3, Maintenance, 09/05/19 9:52:07 EST, Route to Pharmacy Electronically, NCPDP_[id number], [facility] [address], 150, cm, 07/10/19 14:06:31 EDT, [...]
--- OUTSIDE RECORDS SUMMARY | 2023-09-22 18:05 | XMS_ITS | Continuity of Care Document ---
Author Name Unknown Organization [facility] Adult Address [address] [place] [address]- Care Team Providers Care Shoeshiner Name Role Phone Tony FLORES, Jeanette Primary Care Physician En[place] [facility] [place] [facility] [id number] Date(s): 10/18/19 - 10/25/19 [facility] [address] [place] [address]- [facility] Encounter Diagnosis RUQ pain(Discharge Diagnosis) - 10/18/19 Hyperlipidemia(Discharge Diagnosis) - 10/18/19 Aortic stenosis(Discharge Diagnosis) - 10/19/19 HTN (hypertension)(Discharge Diagnosis) - 10/19/19 Mid back pain on left side(Discharge Diagnosis) - 10/19/19 Attending Physician: Jeanette Jimenez MD Allergies, Adverse [...] 09/05/19 9:52:16 EST, Route to Pharmacy Electronically, NCPDP_[id number], [facility], 150, cm, 07/10/19 14:06:31 EDT, Height, [...] 09/05/19 9:52:07 EST, Route to Pharmacy Electronically, NCPDP_ID-[id number], [facility] [address], 150, cm, 07/10/19 14:06:31 EDT, Height, 107.1, kg,... Start Date: 09/05/19 Status: Ordered Ocuvite 1 tablet, By Mouth, Daily, 0 Refills, Maintenance, 10/31/18 14:30:41 EST Start Date: 10/31/18 Status: Ordered Readi-Cat 2 2.1% oral suspension See Instructions, Please follow CT prep instructions, # 2 each, 0 Refills, Maintenance, 10/22/19 15:28:00 EST, [facility], Please follow CT prep instructions, 150.6, cm, 10/18/19 11:03:00 EST, Height, 107.1, kg, 07/10/19 14:06:00 EDT,... Start Date: 10/22/19 Status: Ordered Problem List Condition Effective Dates Status Health Status Inform ant Aortic stenosis(Confirmed) 1 Active Active asthma(Confirmed) Active Chronic low back pain(Confirmed) Active Hyperlipidemia(Confirmed) Active HTN (hypertension)(Confirmed) Active 1s/p TAVR Diagnosis Diagnosis Type Effective Dates Health Status Clinical Service Informant RUQ pain Discharge Diagnosis 10/18/19 Hyperlipidemia Discharge Diagnosis 10/18/19 Aortic stenosis Discharge Diagnosis 10/19/19 HTN (hypertension) Discharge Diagnosis 10/19/19 Mid back pain on left side Discharge Diagnosis 10/19/19 Vital Signs Most recent to oldest [Reference Range]: 1 Height 150.6 cm (10/18/19 11:03 AM) Weight 108.9 kg (10/18/19 11:03 AM) Oxygen Saturation [94-100 %] 96 % (10/18/19 11:03 AM) Pulse Rate [55-90 bpm] 83 bpm (10/18/19 11:03 AM) Body Mass Index [18.5-24.99] 48.02 *>HHI* (10/18/19 11:03 AM) Blood Pressure [90-138/55-84 mm Hg] 130/ 86mm Hg (10/18/19 11:03 AM) Temperature [96.8-100.4 DegF] 98.3 DegF (10/18/19 11:03 AM) Mode of Delivery (Oxygen) Room air (10/18/19 11:03 AM) Blood pressure sites Arm, right (10/18/19 11:03 AM) Temperature Route Oral (10/18/19 11:03 AM) Weight Obtained Via Standing scale (10/18/19 11:03 AM) Social History Social History Type Response Smoking Status Never (less than 100 in lifetime) entered on: 10/18/19 Sex
--- OUTSIDE RECORDS SUMMARY | 2023-09-22 18:05 | XMS_ITS | Continuity of Care Document ---
Author Name Unknown Organization [facility] Address [address] [place] [address]- Care Team Providers Care Tube Machine Operator Helper Name Role Phone Tony FLORES, Jeanette Primary Care Physician [phone] Encounter [facility] [place] Date(s): 03/18/22 - 04/17/22 [facility] [address] [place] [address]- Attending Physician: Harrison Russo Admitting Physician: Harrison [...] Mouth, Daily, # 90 tablet, 1 Refills, [facility] #[id number], 150.6, cm, 12/29/2214:17:00 EDT, Height Start Date: 01/19/22 Status: Ordered gabapentin 300 mg oral capsule 1, capsule, By Mouth, Daily at bedtime, # 90 capsule, Refills 0, Route to Pharmacy Electronically, [facility] #[id number], 150.6, cm, 12/29/21 15:17:00 EDT, Height Start Date: 01/27/22 Status: Ordered irbesartan 300 mg oral tablet 1 tablet, By Mouth, Daily, # 90 tablet, 0 Refills, [facility] #77327, 150.6, cm, :17:00 EDT, Height Start Date: 03/12/22 Status: Ordered irbesartan 300 mg oral tablet 1 tablet, By Mouth, Daily, # 90 tablet, 0 Refills, [facility] #82342, 150.6, cm, :17:00 EDT, Height Start Date: 03/12/22 Status: Ordered irbesartan 300 mg oral tablet See Instructions, TAKE 1 TABLET BY MOUTH DAILY, # 90 tablet, 0 Refills, [facility] #43591, 150.6, cm, 03/04/22 8:17:00 EDT, Height Start Date: 03/12/22 Status: Ordered montelukast 10 mg oral tablet 10 mg, 1, tablet, By Mouth, Daily at bedtime, # 90 tablet, Refills 3, Tot. Refills 3, Maintenance, 09/05/19 9:52:07 EST, Route to Pharmacy Electronically, NCPDP_ID-[id number], [facility] [address], 150, cm, 07/10/19 14:06:31 EDT, [...]
--- OUTSIDE RECORDS SUMMARY | 2023-09-22 18:05 | XMS_ITS | Continuity of Care Document ---
Author Name Unknown Organization [facility] Adult Address [address] [place] [address]- Care Team Providers Care Sammying Machine Operator Name Role Phone Tony FLORES, Jeanette Primary Care Physician Encounter [facility] Date(s): 10/14/22 - 11/13/22 [facility] Adult [address] [place] [address]- Attending Physician: Harrison Russo Admitting Physician: Harrison [...] Daily, # 90 tablet, 0 Refills, Maintenance, 08/02/22 8:17:00 EST, [facility] #[id number], 150.6, cm, 03/18/22 11:25:00 EDT, Height Start Date: 08/02/22 Status: Ordered gabapentin 300 mg oral capsule 1, capsule, By Mouth, Daily at bedtime, # 90 capsule, Refills 0, Tot. Refills 0, Maintenance, 08/02/22 12:24:00 EST, Route to Pharmacy Electronically, [facility] #[id number], 150.6, cm, 03/18/2211:25:00 EDT, Height Start Date: 08/02/22 Status: Ordered irbesartan 300 mg oral tablet 1 tablet, By Mouth, Daily, # 90 tablet, 1 Refills, Maintenance, 09/14/22 15:08:00 EST, [facility] #[id number], 150.6, cm, 03/18/22 11:25:00 EDT, Height Start Date: 09/14/22 Stop Date: 03/13/23 Status: Ordered montelukast 10 mg oral tablet 10 mg, 1, tablet, By Mouth, Daily at bedtime, # 90 tablet, Refills 3, Tot. Refills 3, Maintenance, 09/05/19 9:52:07 EST, Route to Pharmacy Electronically, NCPDP_[id number], [facility] [address], 150, cm, 07/10/19 14:06:31 EDT, Height, 107.1, kg,... Start Date: 09/05/19 Status: Ordered Ocuvite 1 tablet, By Mouth, Daily, 0 Refills, Maintenance, 10/31/18 14:30:41 EST Start Date: 10/31/18 Status: Ordered Problem List Condition Confirmation Course Effective Dates Status H ealth Status Informant Aortic stenosis 1 Confirmed Active Chronic low back pain Confirmed Active Hyperlipidemia Confirmed Active HTN (hypertension) Confirmed Active Severe obesity Confirmed Active 1s/p TAVR Social History Social History Type Response Smoking Status Never (less than 100 in lifetime) entered on: 10/18/19 Sex Patient Care team information Care Team Personnel Name: Jim Bhatti MD Position: [facility] Cardiology MD Member Role: Lifetime Consulting Physician Address: Address: [address] [facility], [address] [facility] [place] [address]- Name: Jeanette Jimenez MD Position: [facility] Primary Care Physician Member Role: PCP Address: Address: [address] [facility] 3rd [place] [address]- Name: Justa Gong RN Position: [facility] AMB Nurse Member Role: Primary Care Nurse Care Team Related Persons Name: WHITNEY MTZ Address: home [address] [place] [address] Name: PHILIP AUGUSTE Name: DEANDRE LUGO Address: home [address] [place] [address]
--- OUTSIDE RECORDS SUMMARY | 2023-09-22 18:05 | XMS_ITS | Continuity of Care Document ---
Author Name Unknown Organization [facility] Adult Address [address] [place] [address]- Care Team Providers Care Storekeeper Helper Name Role Phone Tony FLORES, Jeanette Primary Care Physician Encounter [facility] Date(s): 07/28/23 - 08/27/23 [facility] Adult [address] [place] [address]- Allergies, Adverse Reactions, Alerts Substance Reaction Severity [...] tablet, 0 Refills, Maintenance, 06/07/23 10:30:00 EDT, [facility], 158, cm, 03/14/23 11:23:00 EDT, Height, 96.1, kg, 03/10/23 12:51:00 EDT, Dry Weight Start Date: 06/07/23 Status: Ordered gabapentin 300 mg oral capsule 1, capsule, By Mouth, Daily at bedtime, # 90 capsule, Refills 0, Tot. Refills 0, Maintenance, 06/07/23 17:56:00 EDT, Route to Pharmacy Electronically, [facility], 158, cm, 03/14/23 11:23:00 EDT, Height, 96.1, kg, 03/10/23 12:51:00 EDT, Start Date: 06/07/23 Status: Ordered Lasix 40 mg oral tablet 40 mg, 1, tablet, By Mouth, Daily, # 90 tablet, Refills 0, Tot. Refills 0, Maintenance, 07/08/23 13:58:00 EDT, Route to Pharmacy Electronically, [facility] #[id number], Partial fill upon patientrequest if the prescription is for a schedule II op... Start Date: 07/08/23 Status: Ordered losartan 50 mg oral tablet 50 mg, 1, tablet, By Mouth, Daily, # 90 tablet, Refills 0, Tot. Refills 0, Maintenance, 06/07/23 10:30:00 EDT, Route to Pharmacy Electronically, [facility], Partial fill upon patient request if the prescription is for a schedule II opioid... Start Date: 06/07/23 Status: Ordered montelukast 10 mg oral tablet 10 mg, 1, tablet, By Mouth, Daily at bedtime, # 90 tablet, Refills 0, Tot. Refills 0, Maintenance, 06/07/23 10:30:00 EDT, Route to Pharmacy Electronically, [facility], 158, cm, 03/14/23 11:23:00 EDT, Height, 96.1, kg, 03/10/23 12:51:00 ED... Start Date: 06/07/23 Status: Ordered Vitamin B12 1000 mcg oral tablet 1 tablet = 1,000 mcg, By Mouth, Daily, # 90 tablet, 1 Refills, Maintenance, 07/08/23 22:07:00 EDT, [id number], Partial fill upon patient request if the [...] Team Personnel Name: Evangelina Houston RN Position: [facility] RN Member Role: Primary Care Nurse Name: Magy FLORES, Jim Cheney Position: [facility] Cardiology MD Member Role: Lifetime Consulting Physician Address: Address: [address] [place] [address], [address] [facility] [place] [address]- Name: Jeanette Jimenez MD Position: [facility] Physician - Primary Care Member Role: PCP Address: Address: [address] [place] [address] 3rd [place] [address]- Name: Farideh ROSARIO, Justa Position: [facility] Nurse Member Role: Primary Care Nurse Care Team Related Persons Name: GARY RODRÍGUEZ Name: WHITNEY MTZ Address: home [address] [place] [address] Name: PHILIP AUGUSTE Name: DEANDRE LUGO Address: home [address] [place] [address]
--- OUTSIDE RECORDS SUMMARY | 2023-09-22 18:05 | XMS_ITS | Continuity of Care Document ---
Author Name Unknown Organization [facility] Adult Address [address] [place] [address]- Care Team Providers Care Fur Ironer Name Role Phone oTny FLORES, [facility] Primary Care Physician Encounter [facility] Date(s): 09/09/20 - 10/12/20 [facility] Adult [address] [place] [address]- Attending Physician: Not on Staff, Attending MD [...] 09/08/20 14:44:00 EST, Route to Pharmacy Electronically, [facility] #[id number], 150.6, cm, 09/05/20 16:37:00 EST, Height, 107.1, [...] 3 Refills, Maintenance, 09/08/20 14:45:00 EST, Tablet, [facility] #[id number], 150.6, cm, 09/05/20 16:37:00 EST, Height, 107.1, kg, 07/10/19 14:06:00 EDT, Dry Weight Start Date: 09/08/20 Status: Ordered gabapentin 300 mg oral capsule 300 mg, 1, capsule, By Mouth, Daily at bedtime, # 90 capsule, Refills 3, Tot. Refills 3, Maintenance, 09/08/20 14:46:00 EST, Route to Pharmacy Electronically, [facility] #[id number], 150.6, cm, 09/05/20 16:37:00 EST, Height, 107.1, kg, 07/10/19 1... Start Date: 09/08/20 Status: Ordered irbesartan 300 mg oral tablet 1 tablet = 300 mg, By Mouth, Daily, # 90 tablet, 3 Refills, Maintenance, 09/08/20 14:43:00 EST, Tablet, [facility] #[id number], 150.6, cm, 09/05/20 16:37:00 EST, Height, 107.1, kg, 07/10/19 14:06:00 EDT, Dry Weight Start Date: 09/08/20 Status: Ordered montelukast 10 mg oral tablet 10 mg, 1, tablet, By Mouth, Daily at bedtime, # 90 tablet, Refills 3, Tot. Refills 3, Maintenance, 09/05/19 9:52:07 EST, Route to Pharmacy Electronically, KYPDP_[id number], [facility] [address] [facility] [address], 150, cm, 07/10/19 14:06:31 [...]
--- OUTSIDE RECORDS SUMMARY | 2023-09-22 18:05 | XMS_ITS | Continuity of Care Document ---
Author Name Unknown Organization [facility] Adult Address [address] [place] [address]- Care Team Providers Care Tow Motor Mechanic Name Role Phone Tony FLORES, Jeanette Primary Care Physician Encounter [facility] Date(s): 07/08/23 - 08/07/23 [facility] Adult [address] [place] [address] Allergies, Adverse Reactions, Alerts Substance Reaction Severity [...] tablet, 0 Refills, Maintenance, 06/07/23 10:30:00 EDT, [facility], 158, cm, 03/14/23 11:23:00 EDT, Height, 96.1, kg, 03/10/23 12:51:00 EDT, Dry Weight Start Date: 06/07/23 Status: Ordered gabapentin 300 mg oral capsule 1, capsule, By Mouth, Daily at bedtime, # 90 capsule, Refills 0, Tot. Refills 0, Maintenance, 06/07/23 17:56:00 EDT, Route to Pharmacy Electronically, [facility], 158, cm, 03/14/23 11:23:00 EDT, Height, 96.1, kg, 03/10/23 12:51:00 EDT, Start Date: 06/07/23 Status: Ordered Lasix 40 mg oral tablet 40 mg, 1, tablet, By Mouth, Daily, # 90 tablet, Refills 0, Tot. Refills 0, Maintenance, 07/08/23 13:58:00 EDT, Route to Pharmacy Electronically, [facility] #[id number], Partial fill upon patientrequest if the prescription is for a schedule II op... Start Date: 07/08/23 Status: Ordered losartan 50 mg oral tablet 50 mg, 1, tablet, By Mouth, Daily, # 90 tablet, Refills 0, Tot. Refills 0, Maintenance, 06/07/23 10:30:00 EDT, Route to Pharmacy Electronically, [facility], Partial fill upon patient request if the prescription is for a schedule II opioid... Start Date: 06/07/23 Status: Ordered montelukast 10 mg oral tablet 10 mg, 1, tablet, By Mouth, Daily at bedtime, # 90 tablet, Refills 0, Tot. Refills 0, Maintenance, 06/07/23 10:30:00 EDT, Route to Pharmacy Electronically, [facility], 158, cm, 03/14/23 11:23:00 EDT, Height, 96.1, kg, 03/10/23 12:51:00 ED... Start Date: 06/07/23 Status: Ordered Vitamin B12 1000 mcg oral tablet 1 tablet = 1,000 mcg, By Mouth, Daily, # 90 tablet, 1 Refills, Maintenance, 07/08/23 22:07:00 EDT, Tablet, [facility] #[id number], Partial fill upon patient request if the [...] Team Personnel Name: Evangelina Houston RN Position: [facility] RN Member Role: Primary Care Nurse Name: Jim Bhatti MD Position: [facility] Cardiology MD Member Role: Lifetime Consulting Physician Address: Address: [address] [place] [address], [address] [facility] [place] [address]- Name: Jeanette Jimenez MD Position: [facility] Physician - Primary Care Member Role: PCP Address: Address: [address] [facility] 3rd [place] [address]- Name: Justa Gong RN Position: [facility] Nurse Member Role: Primary Care Nurse Care Team Related Persons Name: GARY RODRÍGUEZ Name: WHITNEY MTZ Address: home [address] [place] [address] Name: PHILIP AUGUSTE Name: DEANDRE LUGO Address: home [address] [place] [address]
--- OUTSIDE RECORDS SUMMARY | 2023-09-22 18:05 | XMS_ITS | Continuity of Care Document ---
Author Name Unknown Organization [facility] Adult Address [address] [place] [address]- Care Team Providers Care Barrel Loader And Cleaner Name Role Phone Tony FLORES, Jeanette Primary Care Physician Encounter [facility] Date(s): 06/02/23 - 07/02/23 [facility] Adult [address] [place] [address]- Allergies, Adverse Reactions, Alerts Substance Reaction Severity [...] Refills, Maintenance, 06/07/23 10:30:00 EDT, [facility], 158, cm, 03/14/23 11:23:00 EDT, Height, 96.1, kg, 03/10/23 12:51:00 EDT, Dry Weight Start Date: 06/07/23 Status: Ordered gabapentin 300 mg oral capsule 1, capsule, By Mouth, Daily at bedtime, # 90 capsule, Refills 0, Tot. Refills 0, Maintenance, 06/07/23 17:56:00 EDT, Route to Pharmacy Electronically, [facility], 158, cm, 03/14/23 11:23:00 EDT, Height, 96.1, kg, 03/10/23 12:51:00 EDT, Start Date: 06/07/23 Status: Ordered losartan 50 mg oral tablet 50 mg, 1, tablet, By Mouth, Daily, # 90 tablet, Refills 0, Tot. Refills 0, Maintenance, 06/07/23 10:30:00 EDT, Route to Pharmacy Electronically, [facility], Partial fill upon patient request if the prescription is for a schedule II opioid... Start Date: 06/07/23 Status: Ordered montelukast 10 mg oral tablet 10 mg, 1, tablet, By Mouth, Daily at bedtime, # 90 tablet, Refills 0, Tot. Refills 0, Maintenance, 06/07/23 10:30:00 EDT, Route to Pharmacy Electronically, [facility], 158, cm, 03/14/23 [...] Team Personnel Name: Evangelina Houston RN Position: [facility] RN Member Role: Primary Care Nurse Name: Jim Bhatti MD Position: [facility] Cardiology MD Member Role: Lifetime Consulting Physician Address: Address: [address] [place] [address], [address] [facility] [place] [address]- Name: Jeanette Jimenez MD Position: [facility] Physician - Primary Care Member Role: PCP Address: Address: [address] [place] [address] 3rd [place] [address]- Name: Justa Gong RN Position: [facility] AMB Nurse Member Role: Primary Care Nurse Care Team Related Persons Name: GARY RODRÍGUEZ Name: WHITNEY MTZ Address: home [address] [place] [address] Name: PHILIP AUGUSTE Name: DEANDRE LUGO Address: home [address] [place] [address]
--- OUTSIDE RECORDS SUMMARY | 2023-09-22 18:05 | XMS_ITS | Continuity of Care Document ---
Author Name Unknown Organization [facility] ter Address [address] [place] [address]- Care Team Providers Care Telegraph Editor Name Role Phone Tony FLORES, Jeanette Primary Care Physician [phone] Encounter [facility] Date(s): 08/31/20 - 10/10/20 [facility] [address] [place] [id number] Attending Physician: Parviz Ramirez MD Admitting Physician: Parviz Ramirez MD Referring Physician: Parviz Ramirez MD Allergies, Adverse Reactions, Alerts Substance Reaction Severity Status doxycycline Active tetracycline Active penicillin 1 progressive rash on face Act aris macrolide antibiotics Active Pneumovax 23 Active ketolides Active shellfish 2 Active 1lips swell and [...] 09/08/20 14:44:00 EST, Route to Pharmacy Electronically, [facility] #[id number], 150.6, cm, 09/05/20 16:37:00 EST, Height, 107.1, [...] 3 Refills, Maintenance, 09/08/20 14:45:00 EST, Tablet, [facility] #[id number], 150.6, cm, 09/05/20 16:37:00 EST, Height, 107.1, kg, 07/10/19 14:06:00 EDT, Dry Weight Start Date: 09/08/20 Status: Ordered gabapentin 300 mg oral capsule 300 mg, 1, capsule, By Mouth, Daily at bedtime, # 90 capsule, Refills 3, Tot. Refills 3, Maintenance, 09/08/20 14:46:00 EST, Route to Pharmacy Electronically, [facility] #[id number], 150.6, cm, 09/05/20 16:37:00 EST, Height, 107.1, kg, 07/10/19 1... Start Date: 09/08/20 Status: Ordered irbesartan 300 mg oral tablet 1 tablet = 300 mg, By Mouth, Daily, # 90 tablet, 3 Refills, Maintenance, 09/08/20 14:43:00 EST, Tablet, [facility] #[id number], 150.6, cm, 09/05/20 16:37:00 EST, Height, 107.1, kg, 07/10/19 14:06:00 EDT, Dry Weight Start Date: 09/08/20 Status: Ordered montelukast 10 mg oral tablet 10 mg, 1, tablet, By Mouth, Daily at bedtime, # 90 tablet, Refills 3, Tot. Refills 3, Maintenance, 09/05/19 9:52:07 EST, Route to Pharmacy Electronically, NCPDP_[id number], [facility] [address] [facility] [address], 150, cm, 07/10/19 14:06:31 EDT, [...]
--- OUTSIDE RECORDS SUMMARY | 2023-09-22 18:06 | XMS_ITS | Continuity of Care Document ---
Author Name Unknown Organization [facility] Address [address] [place] [address]- Care Team Providers Care Oceanologist Name Role Phone Jeanette Jimenez MD Primary Care Physician Encounter [facility] Date(s): 04/04/20 - 05/04/20 [facility] [address] [place] [address]- [facility] Allergies, Adverse Reactions, Alerts Substance Reaction Severity [...] 12/05/19 11:46:00 EDT, Route to Pharmacy Electronically, [facility] #[id number], 150.6, cm, 12/05/19 11:26:00 EDT, Height, 107.1, [...] Acute 01/02/21 10:05:00 EDT, 01/03/20 10:04:00 EDT, [facility] #[id number], 150.6, cm, 12/19/19 10:53:00 EDT, Height, 107.1, [...] 12/19/19 11:21:00 EDT, Route to Pharmacy Electronically, [facility] #[id number], 150.6, cm, 12/19/19 10:53:00 EDT, Height, 107.1, [...] 09/05/19 9:52:07 EST, Route to Pharmacy Electronically, NCPDP_ID-[id number], [facility], 150, cm, 07/10/19 14:06:31 EDT, Height, 107.1, kg,... Start Date: 09/05/19 Status: Ordered Ocuvite 1 tablet, By Mouth, Daily, 0 Refills, Maintenance, 10/31/18 14:30:41 EST Start Date: 10/31/18 Status: Ordered Readi-Cat 2 2.1% oral suspension See Instructions, Please follow CT prep instructions, # 2 each, 0 Refills, Maintenance, 10/22/19 15:28:00 EST, [facility], Please follow CT prep instructions, 150.6, [...]
--- OUTSIDE RECORDS SUMMARY | 2023-09-22 18:06 | XMS_ITS | Continuity of Care Document ---
Author Name Unknown Organization [facility] ter Address [address] [place] [address]- Care Team Providers Care Dice Dealer Name Role Phone Tony FLORES, Jeanette Primary Care Physician Encounter [facility] Date(s): 05/18/19 - 01/17/[address] [address]- [facility] Discharge Disposition: A-D/C Home Attending Physician: Marine FLORES, Tommie Goyal Admitting Physician: Tommie Hawthorne MD Referring Physician: Tommie Hawthorne MD Allergies, Adverse Reactions, Alerts Substance Reaction Severity Status doxycycline Active tetracycline Active shellfish 1 Active Pneumovax 23 Active ketolides Active macrolide antibiotics Active penicillin 2 progressive rash on face [...] 12/05/19 11:46:00 EDT, Route to Pharmacy Electronically, [facility] #[id number], 150.6, cm, 12/05/19 11:26:00 EDT, Height, 107.1, [...] Acute 01/02/21 10:05:00 EDT, 01/03/20 10:04:00 EDT, [facility] #[id number], 150.6, cm, 12/19/19 10:53:00 EDT, Height, 107.1, [...] 12/19/19 11:21:00 EDT, Route to Pharmacy Electronically, [facility] #[id number], 150.6, cm, 12/19/19 10:53:00 EDT, Height, 107.1, [...] 09/05/19 9:52:07 EST, [id number], 150, cm, 07/10/19 14:06:31 EDT, Height, 107.1, kg,... Start Date: 09/05/19 Status: Ordered Ocuvite 1 tablet, By Mouth, Daily, 0 Refills, Maintenance, 10/31/18 14:30:41 EST Start Date: 10/31/18 Status: Ordered Readi-Cat 2 2.1% oral suspension See Instructions, Please follow CT prep instructions, # 2 each, 0 Refills, Maintenance, 10/22/19 15:28:00 EST, [facility], Please follow CT prep instructions, 150.6, [...]
--- OUTSIDE RECORDS SUMMARY | 2023-09-22 18:06 | XMS_ITS | Continuity of Care Document ---
Author Name Unknown Organization [facility] Adult Address [address] [place] [address]- Care Team Providers Care Contracts Attorney Name Role Phone Tony FLORES, Jeanette Primary Care Physician Encounter [facility] Date(s): 07/28/23 - 08/04/23 [facility] Adult [address] [place] [address]- Attending Physician: Jeanette Jimenez MD Allergies, Adverse [...] Refills, Maintenance, 06/07/23 10:30:00 EDT, [facility] [place] [facility], 158, cm, 03/14/23 11:23:00 EDT, Height, 96.1, kg, 03/10/23 12:51:00 EDT, Dry Weight Start Date: 06/07/23 Status: Ordered gabapentin 300 mg oral capsule 1, capsule, By Mouth, Daily at bedtime, # 90 capsule, Refills 0, Tot. Refills 0, Maintenance, 06/07/23 17:56:00 EDT, Route to Pharmacy Electronically, [facility], 158, cm, 03/14/23 11:23:00 EDT, Height, 96.1, kg, 03/10/23 12:51:00 EDT, Start Date: 06/07/23 Status: Ordered Lasix 40 mg oral tablet 40 mg, 1, tablet, By Mouth, Daily, # 90 tablet, Refills 0, Tot. Refills 0, Maintenance, 07/08/23 13:58:00 EDT, Route to Pharmacy Electronically, [facility] #[id number], Partial fill upon patientrequest if the prescription is for a schedule II op... Start Date: 07/08/23 Status: Ordered losartan 50 mg oral tablet 50 mg, 1, tablet, By Mouth, Daily, # 90 tablet, Refills 0, Tot. Refills 0, Maintenance, 06/07/23 10:30:00 EDT, Route to Pharmacy Electronically, [facility] [place] [facility], Partial fill upon patient request if the prescription is for a schedule II opioid... Start Date: 06/07/23 Status: Ordered montelukast 10 mg oral tablet 10 mg, 1, tablet, By Mouth, Daily at bedtime, # 90 tablet, Refills 0, Tot. Refills 0, Maintenance, 06/07/23 10:30:00 EDT, Route to Pharmacy Electronically, [facility], 158, cm, 03/14/23 11:23:00 EDT, Height, 96.1, kg, 03/10/23 12:51:00 ED... Start Date: 06/07/23 Status: Ordered Vitamin B12 1000 mcg oral tablet 1 tablet = 1,000 mcg, By Mouth, Daily, # 90 tablet, 1 Refills, Maintenance, 07/08/23 22:07:00 EDT, Tablet, [facility] #[id number], Partial fill upon patient request if the [...] Team Personnel Name: Evangelina Houston RN Position: [facility] RN Member Role: Primary Care Nurse Name: Jim Bhatti MD Position: [facility] Cardiology MD Member Role: Lifetime Consulting Physician Address: Address: [address] [place] [address], [address] [facility] [place] [address]- Name: Jeanette Jimenez MD Position: [facility] Physician - Primary Care Member Role: PCP Address: Address: [address] [facility] 3rd [place] [address]- Name: Justa Gong RN Position: [facility] AMB Nurse Member Role: Primary Care Nurse Care Team Related Persons Name: GARY RODRÍGUEZ Name: WHITNEY MTZ Address: [address] [place] [address] Name: PHILIP AUGUSTE Name: DEANDRE LUGO Address: home [address] [place] [address]
--- OUTSIDE RECORDS SUMMARY | 2023-09-22 18:06 | XMS_ITS | Continuity of Care Document ---
Author Name Unknown Organization [facility] Adult Address [address] [place] [address]- Care Team Providers Care Signing Agent Name Role Phone Tony FLORES, Jeanette Primary Care Physician [facility] Date(s): 03/24/20 - 06/04/20 [facility] Adult [address] [place] [address]- [facility] Attending Physician: Jeanette Jimenez MD Allergies, Adverse Reactions, Alerts Substance Reaction Severity Status doxycycline Active tetracycline Active penicillin 1 progressive rash on face Act aris ketolides Active Pneumovax 23 Active macrolide antibiotics Active shellfish 2 Active 1lips [...] 12/05/19 11:46:00 EDT, Route to Pharmacy Electronically, [facility] #[id number], 150.6, cm, 12/05/19 11:26:00 EDT, Height, 107.1, [...] Acute 01/02/21 10:05:00 EDT, 01/03/20 10:04:00 EDT, [facility] #[id number], 150.6, cm, 12/19/19 10:53:00 EDT, Height, 107.1, [...] 12/19/19 11:21:00 EDT, Route to Pharmacy Electronically, [facility] #[id number], 150.6, cm, 12/19/19 10:53:00 EDT, Height, 107.1, [...] 09/05/19 9:52:07 EST, Route to Pharmacy Electronically, NCP[id number], [address], 150, cm, 07/10/19 14:06:31 EDT, Height, 107.1, kg,... Start Date: 09/05/19 Status: Ordered Ocuvite 1 tablet, By Mouth, Daily, 0 Refills, Maintenance, 10/31/18 14:30:41 EST Start Date: 10/31/18 Status: Ordered Readi-Cat 2 2.1% oral suspension See Instructions, Please follow CT prep instructions, # 2 each, 0 Refills, Maintenance, 10/22/19 15:28:00 EST, [address], Please follow CT prep instructions, 150.6, [...]
--- OUTSIDE RECORDS SUMMARY | 2023-09-22 18:06 | XMS_ITS | Continuity of Care Document ---
Author Name Unknown Organization [facility] ter Address [address] [place] [address]- Care Team Providers Care Composite Engineer Name Role Phone Tony FLORES, Jeanette Primary Care Physician [place] [facility] [place] - 06/29/[address] [address] Attending Physician: Denisse Frank NP Admitting Physician: [...] 12/05/19 11:46:00 EDT, Route to Pharmacy Electronically, [facility] #[id number], 150.6, cm, 12/05/19 11:26:00 EDT, Height, 107.1, [...] Acute 01/02/21 10:05:00 EDT, 01/03/20 10:04:00 EDT, [facility] #[id number], 150.6, cm, 12/19/19 10:53:00 EDT, Height, 107.1, [...] 12/19/19 11:21:00 EDT, Route to Pharmacy Electronically, [facility] #[id number], 150.6, cm, 12/19/19 10:53:00 EDT, Height, 107.1, [...] 09/05/19 9:52:07 EST, Route to Pharmacy Electronically, NCPDP_[id number], [facility] - [address] [place] [address], 150, cm, 07/10/19 14:06:31 EDT, Height, 107.1, kg,... Start Date: 09/05/19 Status: Ordered Ocuvite 1 tablet, By Mouth, Daily, 0 Refills, Maintenance, 10/31/18 14:30:41 EST Start Date: 10/31/18 Status: Ordered Readi-Cat 2 2.1% oral suspension See Instructions, Please follow CT prep instructions, # 2 each, 0 Refills, Maintenance, 10/22/19 15:28:00 EST, [facility], Please follow CT prep instructions, 150.6, [...]
--- OUTSIDE RECORDS SUMMARY | 2023-09-22 18:06 | XMS_ITS | Continuity of Care Document ---
Author Name Unknown Organization [facility] Adult Address [address] [place] [address]- Care Team Providers Care Day Care Aide Name Role Phone Tony FLORES, Jeanette Primary Care Physician Encounter [facility] [place] Date(s): 06/28/23 - 07/05/23 [facility] Adult [address] [place] [address]- Encounter Diagnosis UTI (urinary tract infection)(Discharge Diagnosis) - 06/28/23 Urinary retention(Discharge Diagnosis) - 06/28/23 Attending Physician: Cece BRAN MIXER, Nayely Lancaster Allergies, Adverse Reactions, Alerts Substance [...] Refills, Maintenance, 06/07/23 10:30:00 EDT, [facility], 158, cm, 03/14/23 11:23:00 EDT, Height, 96.1, kg, 03/10/23 12:51:00 EDT, Dry Weight Start Date: 06/07/23 Status: Ordered gabapentin 300 mg oral capsule 1, capsule, By Mouth, Daily at bedtime, # 90 capsule, Refills 0, Tot. Refills 0, Maintenance, 06/07/23 17:56:00 EDT, Route to Pharmacy Electronically, [facility], 158, cm, 03/14/23 11:23:00 EDT, Height, 96.1, kg, 03/10/23 12:51:00 EDT, . Start Date: 06/07/23 Status: Ordered losartan 50 mg oral tablet 50 mg, 1, tablet, By Mouth, Daily, # 90 tablet, Refills 0, Tot. Refills 0, Maintenance, 06/07/23 10:30:00 EDT, Route to Pharmacy Electronically, [facility], Partial fill upon patient request if the prescription is for a schedule II opioid... Start Date: 06/07/23 Status: Ordered montelukast 10 mg oral tablet 10 mg, 1, tablet, By Mouth, Daily at bedtime, # 90 tablet, Refills 0, Tot. Refills 0, Maintenance, 06/07/23 10:30:00 EDT, Route to Pharmacy Electronically, [facility], 158, cm, 03/14/23 11:23:00 EDT, Height, [...] (urinary tract infection) Confirmed Active 1s/p TAVR Diagnosis Diagnosis Type Effective Dates Health Status Cl inical Service Informant UTI (urinary tract infection) Discharge Diagnosis 06/28/23 Urinary retention Discharge Diagnosis 06/28/23 Vital Signs Most recent to oldest [Reference Range]: 1 2 Height 158 cm (06/28/23 3:00 PM) 158 cm (06/28/23 2:42 PM) Weight 109.1 kg (06/28/23 2:42 PM) Oxygen Saturation [94-100 %] 95 % (06/28/23 2:42 PM) Pulse Rate [55-90 bpm] 84 bpm (06/28/23 2:42 PM) Body Mass Index [18.5-24.99 kg/m2] 43.7 kg/m2 *>HHI* (06/28/23 2:42 PM) Blood Pressure [90-138/55-84 mm Hg] 110/ 62mm Hg (06/28/23 3:00 PM) 107/72mm Hg (06/28/23 2:42 PM) Respiratory Rate [16-30 br/min] 18 br/mi n (06/28/23 2:42 PM) Temperature [96.8-100.4 DegF] 98.1 DegF (06/28/23 2:42 PM) Mode of Delivery (Oxygen) Room air (06/28/23 2:42 PM) Blood pressure sites Arm, left (06/28/23 3:00 PM) Arm, right (06/28/23 2:42 PM) Temperature Route Oral (06/28/23 2:42 PM) Weight Obtained Via Standing scale (06/28/23 2:42 PM) Social History Social History Type Response Smoking Status Never (less than 100 in lifetime) entered on: 10/18/19 Sex Note * Gwendolyn Arndt: PERFORM, SIGN, VERIFY Event Display: Patient Education/Instruction Authored Date: [id number] [facility] *[facility] [place] [facility] Clinical Summary Name AICHA LUGO Age 83 Years 1940 PCP Tony FLORES, Jeanette PCP Visit Date 06/28/2023 14:18:00 Additional Instructions: Medicare Wellness Exam with Dr. Randahaw Scheduled Appointments?? Future Appointments ?No Future Appointments Scheduled Follow-Up Instructions ?? Diagnosis Urinary tract infection, site not specified; Retention of urine, unspecified Medications: Please continue your medications until treatment is completed or stopped by your provider. Discuss any questions related to medications with your provider. Medications to Continue with No Changes These [...] Daily at Bedtime. Refills: 0. Next Dose: No Longer Take the Following Medications Cephalexin (cephalexin monohydrate 500 mg oral capsule) 500 Milligram Oral every 6 hours for 3 Days. Allergy Info:?? ketolides; Pneumovax 23; shellfish; macrolide antibiotics; penicillin; tetracycline; doxycycline Medications Given This Visit Future Orders ?No future orders Vital Signs Height 158 cm Weight 109.1 kg BMI 43.7 kg/m2 Blood Pressure 110 mm Hg/62 mm Hg Temperature 98.1 DegF Pulse Rate 84 bpm Respiratory Rate 18 br/min 02 Sat Mode of Delivery 95 %/Room air You can now view a summary of your hospital visit from the comfort of your home through a free online portal called iFollo. iFollo is a website that allows you to securely view your medical information including discharge summary, medications and follow-up visits. ??You can alsosend a secure electronic message to your doctor???s office to request appointments, renew medications or just ask a question. You can enroll at [email or web address] or register during your next office visit. [...] primary care provider, you may find a [facility] provider by calling [facility] at [phone]. [facility], in keeping with [facility] guidance, no longer requires face masks [...] format to support your individualized medical care. Patient Care team information Care Team Personnel Name: Evangelina Houston RN Position: [facility] RN Member Role: Primary Care Nurse Name: Jim Bhatti MD Position: [facility] Cardiology MD Member Role: Lifetime Consulting Physician Address: Address: [address] [place] [address], [address] [facility] [address]- Name: Jeanette Jimenez MD Position: [facility] Physician - Primary Care Member Role: PCP Address: Address: [address] [facility] 3rd [place] [address]- [place] Name: Justa Gong RN Position: [facility] AMB Nurse Member Role: Primary Care Nurse Care Team Related Persons Name: GARY RODRÍGUEZ Name: WHITNEY MTZ Address: home [address] [place] [address] Name: PHILIP AUGUSTE Name: DEANDRE LUGO Address: home [address] [place] [address]
--- OUTSIDE RECORDS SUMMARY | 2023-09-22 18:06 | XMS_ITS | Continuity of Care Document ---
Author Name Unknown Organization [facility] Adult Address [address] [place] [address]- Care Team Providers Care Operations Label Clerk Name Role Phone Tony FLORES, Jeanette Primary Care Physician [place] [facility] [place] 10[place]20 [facility] [address] [place] [address]- Allergies, Adverse Reactions, Alerts Substance Reaction Severity [...] 09/08/20 14:44:00 EST, Route to Pharmacy Electronically, [facility] #[id number], 150.6, cm, 09/05/20 16:37:00 EST, Height, 107.1, [...] 3 Refills, Maintenance, 09/08/20 14:45:00 EST, Tablet, [facility] #[id number], 150.6, cm, 09/05/20 16:37:00 EST, Height, 107.1, kg, 07/10/19 14:06:00 EDT, Dry Weight Start Date: 09/08/20 Status: Ordered gabapentin 300 mg oral capsule 300 mg, 1, capsule, By Mouth, Daily at bedtime, # 90 capsule, Refills 3, Tot. Refills 3, Maintenance, 09/08/20 14:46:00 EST, Route to Pharmacy Electronically, [facility] #[id number], 150.6, cm, 09/05/20 16:37:00 EST, Height, 107.1, kg, 07/10/19 1... Start Date: 09/08/20 Status: Ordered irbesartan 300 mg oral tablet 1 tablet = 300 mg, By Mouth, Daily, # 90 tablet, 3 Refills, Maintenance, 09/08/20 14:43:00 EST, Tablet, [facility] #[id number], 150.6, cm, 09/05/20 16:37:00 EST, Height, 107.1, kg, 07/10/19 14:06:00 EDT, Dry Weight Start Date: 09/08/20 Status: Ordered montelukast 10 mg oral tablet 10 mg, 1, tablet, By Mouth, Daily at bedtime, # 90 tablet, Refills 3, Tot. Refills 3, Maintenance, 09/05/19 9:52:07 EST, Route to Pharmacy Electronically, NCPDP_[id number], [facility] [address], 150, cm, 07/10/19 14:06:31 EDT, Height, [...]
--- OUTSIDE RECORDS SUMMARY | 2023-09-22 18:06 | XMS_ITS | Continuity of Care Document ---
Author Name Unknown Organization [facility] Adult Address [address] [place] [address]- Care Team Providers Care Music Artist Name Role Phone Tony FLORES, Jeanette Primary Care Physician [phone] [place] [facility] [place]23 [facility] Adult [address] [place] [address]- Allergies, Adverse Reactions, Alerts Substance Reaction Severity [...] 0 Refills, Maintenance, 06/07/23 10:30:00 EDT, [facility], 158, cm, 03/14/23 11:23:00 EDT, Height, 96.1, kg, 03/10/23 12:51:00 EDT, Dry Weight Start Date: 06/07/23 Status: Ordered gabapentin 300 mg oral capsule 1, capsule, By Mouth, Daily at bedtime, # 90 capsule, Refills 0, Tot. Refills 0, Maintenance, 06/07/23 17:56:00 EDT, Route to Pharmacy Electronically, [facility], 158, cm, 03/14/23 11:23:00 EDT, Height, 96.1, kg, 03/10/23 12:51:00 EDT, Start Date: 06/07/23 Status: Ordered losartan 50 mg oral tablet 50 mg, 1, tablet, By Mouth, Daily, # 90 tablet, Refills 0, Tot. Refills 0, Maintenance, 06/07/23 10:30:00 EDT, Route to Pharmacy Electronically, [facility], Partial fill upon patient request if the prescription is for a schedule II opioid... Start Date: 06/07/23 Status: Ordered montelukast 10 mg oral tablet 10 mg, 1, tablet, By Mouth, Daily at bedtime, # 90 tablet, Refills 0, Tot. Refills 0, Maintenance, 06/07/23 10:30:00 EDT, Route to Pharmacy Electronically, [facility], 158, cm, 03/14/23 11:23:00 EDT, Height, [...] Team Personnel Name: Evangelina Houston RN Position: [facility] RN Member Role: Primary Care Nurse Name: Jim Bhatti MD Position: [facility] Cardiology MD Member Role: Lifetime Consulting Physician Address: Address: [address] [place] [address], [address] [facility] [place] [address]- Name: Jeanette Jimenez MD Position: [facility] Physician - Primary Care Member Role: PCP Address: Address: [address] [place] [address] [address]rd [place] [address]- Name: Justa Gong RN Position: [facility] AMB Nurse Member Role: Primary Care Nurse Care Team Related Persons Name: GARY RODRÍGUEZ Name: WHITNEY MTZ Address: home [address] [place] [address] Name: PHILIP AUGUSTE Name: DEANDRE LUGO Address: home [address] [place] [address]
--- OUTSIDE RECORDS SUMMARY | 2023-09-22 18:06 | XMS_ITS | Continuity of Care Document ---
Author Name Unknown Organization [facility] Address [address] [place] [address]- Care Team Providers Care Senior User Experience Architect Name Role Phone Tony FLORES, Jeanette Primary Care Physician [phone] Encounter [facility] [place] Date(s): 03/18/22 - 03/25/22 [facility] [address] [place], [place] [address] Attending Physician: Parviz Phillips DO Referring Physician: Jeanette Jimenez MD Allergies, Adverse Reactions, Alerts Substance Reaction Severity Status doxycycline Active tetracycline Active penicillin 1 progressive rash on face Act aris macrolide antibiotics Active shellfish 2 Active ketolides Active Pneumovax 23 Active 1lips swell and [...] Mouth, Daily, # 90 tablet, 1 Refills, [facility] #[id number], 150.6, cm, 12/29/2214:17:00 EDT, Height Start Date: 01/19/22 Status: Ordered gabapentin 300 mg oral capsule 1, capsule, By Mouth, Daily at bedtime, # 90 capsule, Refills 0, Route to Pharmacy Electronically, [facility] #[id number], 150.6, cm, 12/29/21 15:17:00 EDT, Height Start Date: 01/27/22 Status: Ordered irbesartan 300 mg oral tablet 1 tablet, By Mouth, Daily, # 90 tablet, 0 Refills, [facility] #[id number], 150.6, cm, :17:00 EDT, Height Start Date: 03/12/22 Status: Ordered irbesartan 300 mg oral tablet 1 tablet, By Mouth, Daily, # 90 tablet, 0 Refills, [facility] #[id number], 150.6, cm, :17:00 EDT, Height Start Date: 03/12/22 Status: Ordered irbesartan 300 mg oral tablet See Instructions, TAKE 1 TABLET BY MOUTH DAILY, # 90 tablet, 0 Refills, [facility] #[id number], 150.6, cm, 03/04/22 8:17:00 EDT, Height Start Date: 03/12/22 Status: Ordered montelukast 10 mg oral tablet 10 mg, 1, tablet, By Mouth, Daily at bedtime, # 90 tablet, Refills 3, Tot. Refills 3, Maintenance, 09/05/19 9:52:07 EST, Route to Pharmacy Electronically, NCPDP_[id number], [facility] [address], 150, cm, 07/10/19 14:06:31 EDT, Height, 107.1, kg,... Start Date: 09/05/19 Status: Ordered Ocuvite 1 tablet, By Mouth, Daily, 0 Refills, Maintenance, 10/31/18 14:30:41 EST Start Date: 10/31/18 Status: Ordered Problem List Condition Effective Dates Status Health Status Inform ant Aortic stenosis(Confirmed) 1 Active Chronic low back pain(Confirmed) Active Hyperlipidemia(Confirmed) Active HTN (hypertension)(Confirmed) Active Severe obesity(Confirmed) Active 1s/p TAVR Vital Signs Most recent to oldest [Reference Range]: 1 Height 150.6 cm (03/18/22 11:25 AM) Oxygen Saturation [94-100 %] 97 % (03/18/22 11:25 AM) Pulse Rate [55-90 bpm] 85 bpm (03/18/22 11:25 AM) Blood Pressure [90-138/55-84 mm Hg] 129/ 54mm Hg (03/18/22 11:25 AM) Respiratory Rate [16-30 br/min] 16 br/mi n (03/18/22 11:25 AM) Temperature [96.8-100.4 DegF] 98.1 DegF (03/18/22 11:25 AM) Blood pressure sites Arm, right (03/18/22 11:25 AM) Temperature Route Temporal (03/18/22 11:25 AM) Social History Social History Type Response Smoking Status Never (less than 100 in lifetime) entered on: 10/18/19 Sex
--- OUTSIDE RECORDS SUMMARY | 2023-09-22 18:06 | XMS_ITS | Continuity of Care Document ---
Author Name Unknown Organization [facility] Address [address] [place] [address]- Care Team Providers Care Tinner Automatic Name Role Phone Tony FLORES, Jeanette Primary Care Physician [phone] En[place] [facility] [place] Date(s): 09/12/20 - 10/12/20 [facility] [address] [place] [address]- Attending Physician: Harrison Russo Admitting Physician: AdmHarrison rahman Referring Physician: AdmtrHarrison Allergies, Adverse Reactions, Alerts [...] 09/08/20 14:44:00 EST, Route to Pharmacy Electronically, [facility] #[id number], 150.6, cm, 09/05/20 16:37:00 EST, Height, 107.1, [...] 3 Refills, Maintenance, 09/08/20 14:45:00 EST, Tablet, [facility] #[id number], 150.6, cm, 09/05/20 16:37:00 EST, Height, 107.1, kg, 07/10/19 14:06:00 EDT, Dry Weight Start Date: 09/08/20 Status: Ordered gabapentin 300 mg oral capsule 300 mg, 1, capsule, By Mouth, Daily at bedtime, # 90 capsule, Refills 3, Tot. Refills 3, Maintenance, 09/08/20 14:46:00 EST, Route to Pharmacy Electronically, [facility] #[id number], 150.6, cm, 09/05/20 16:37:00 EST, Height, 107.1, kg, 07/10/19 1... Start Date: 09/08/20 Status: Ordered irbesartan 300 mg oral tablet 1 tablet = 300 mg, By Mouth, Daily, # 90 tablet, 3 Refills, Maintenance, 09/08/20 14:43:00 EST, Tablet, [facility] #[id number], 150.6, cm, 09/05/20 16:37:00 EST, Height, 107.1, kg, 07/10/19 14:06:00 EDT, Dry Weight Start Date: 09/08/20 Status: Ordered montelukast 10 mg oral tablet 10 mg, 1, tablet, By Mouth, Daily at bedtime, # 90 tablet, Refills 3, Tot. Refills 3, Maintenance, 09/05/19 9:52:07 EST, Route to Pharmacy Electronically, NCPDP_ID-[id number], [facility] [address] [facility] [address] [facility] [address], 150, cm, 07/10/19 14:06:31 [...]
--- OUTSIDE RECORDS SUMMARY | 2023-09-22 18:06 | XMS_ITS | Continuity of Care Document ---
Author Name Unknown Organization [facility] Adult Address [address] [place] [address]- Care Team Providers Care Production Counter Name Role Phone Tony FLORES, Jeanette Primary Care Physician [place] [facility] [place] 04/03/22 [facility] [address] [place] [address]- Attending Physician: Harrison Russo Admitting Physician: Harrison [...] Mouth, Daily, # 90 tablet, 1 Refills, [facility] #[id number], 150.6, cm, 12/29/2214:17:00 EDT, Height Start Date: 01/19/22 Status: Ordered gabapentin 300 mg oral capsule 1, capsule, By Mouth, Daily at bedtime, # 90 capsule, Refills 0, Route to Pharmacy Electronically, [facility] #[id number], 150.6, cm, 12/29/21 15:17:00 EDT, Height Start Date: 01/27/22 Status: Ordered irbesartan 300 mg oral tablet 1 tablet, By Mouth, Daily, # 90 tablet, 0 Refills, [facility] #[id number], 150.6, cm, :17:00 EDT, Height Start Date: 03/12/22 Status: Ordered irbesartan 300 mg oral tablet 1 tablet, By Mouth, Daily, # 90 tablet, 0 Refills, [facility] #[id number], 150.6, cm, :17:00 EDT, Height Start Date: 03/12/22 Status: Ordered irbesartan 300 mg oral tablet See Instructions, TAKE 1 TABLET BY MOUTH DAILY, # 90 tablet, 0 Refills, [facility] #[id number], 150.6, cm, 03/04/22 8:17:00 EDT, Height Start Date: 03/12/22 Status: Ordered montelukast 10 mg oral tablet 10 mg, 1, tablet, By Mouth, Daily at bedtime, # 90 tablet, Refills 3, Tot. Refills 3, Maintenance, 09/05/19 9:52:07 EST, Route to Pharmacy Electronically, NCPDP_ID-[id number], [facility] [address], 150, cm, 07/10/19 14:06:31 EDT, Height, [...]
--- OUTSIDE RECORDS SUMMARY | 2023-09-22 18:06 | XMS_ITS | Continuity of Care Document ---
Author Name Unknown Organization [facility] Adult Address [address] [place] [address]- Care Team Providers Care Structural Worker Name Role Phone Tony FLORES, Jeanette Primary Care Physician [place] [facility] [place]21 - 07/29/21 [facility] [address] [place] [address]- Allergies, Adverse Reactions, Alerts Substance Reaction Severity Status doxycycline Active tetracycline Active penicillin 1 progressive rash on face Act aris macrolide antibiotics Active ketolides Active Pneumovax 23 Active shellfish 2 Active 1lips swell and [...] 09/08/20 14:44:00 EST, Route to Pharmacy Electronically, [facility] #[id number], 150.6, cm, 09/05/20 16:37:00 EST, Height, 107.1, [...] 3 Refills, Maintenance, 09/08/20 14:45:00 EST, Tablet, [facility] #[id number], 150.6, cm, 09/05/20 16:37:00 EST, Height, 107.1, kg, 07/10/19 14:06:00 EDT, Dry Weight Start Date: 09/08/20 Status: Ordered gabapentin 300 mg oral capsule 300 mg, 1, capsule, By Mouth, Daily at bedtime, # 90 capsule, Refills 3, Tot. Refills 3, Maintenance, 09/08/20 14:46:00 EST, Route to Pharmacy Electronically, [facility] #[id number], 150.6, cm, 09/05/20 16:37:00 EST, Height, 107.1, kg, 07/10/19 1... Start Date: 09/08/20 Status: Ordered irbesartan 300 mg oral tablet 1 tablet = 300 mg, By Mouth, Daily, # 90 tablet, 3 Refills, Maintenance, 09/08/20 14:43:00 EST, Tablet, [facility] #[id number], 150.6, cm, 09/05/20 16:37:00 EST, Height, 107.1, kg, 07/10/19 14:06:00 EDT, Dry Weight Start Date: 09/08/20 Status: Ordered montelukast 10 mg oral tablet 10 mg, 1, tablet, By Mouth, Daily at bedtime, # 90 tablet, Refills 3, Tot. Refills 3, Maintenance, 09/05/19 9:52:07 EST, Route to Pharmacy Electronically, NCPDP_[id number], [facility] [address], 150, cm, 07/10/19 14:06:31 EDT, Height, [...]
--- OUTSIDE RECORDS SUMMARY | 2023-09-22 18:06 | XMS_ITS | Continuity of Care Document ---
Author Name Unknown Organization [facility] Address [address] [place] [address]- Care Team Providers Care Chief Of Vital Statistics Name Role Phone Tony FLORES, Jeanette Primary Care Physician Encounter [facility] [place] Date(s): 06/03/23 - 07/03/23 [facility] [address] [place] [address]- Allergies, Adverse Reactions, Alerts Substance Reaction Severity [...] Refills, Maintenance, 06/07/23 10:30:00 EDT, [facility], 158, cm, 03/14/23 11:23:00 EDT, Height, 96.1, kg, 03/10/23 12:51:00 EDT, Dry Weight Start Date: 06/07/23 Status: Ordered gabapentin 300 mg oral capsule 1, capsule, By Mouth, Daily at bedtime, # 90 capsule, Refills 0, Tot. Refills 0, Maintenance, 06/07/23 17:56:00 EDT, Route to Pharmacy Electronically, [facility], 158, cm, 03/14/23 11:23:00 EDT, Height, 96.1, kg, 03/10/23 12:51:00 EDT, Start Date: 06/07/23 Status: Ordered losartan 50 mg oral tablet 50 mg, 1, tablet, By Mouth, Daily, # 90 tablet, Refills 0, Tot. Refills 0, Maintenance, 06/07/23 10:30:00 EDT, Route to Pharmacy Electronically, [facility], Partial fill upon patient request if the prescription is for a schedule II opioid... Start Date: 06/07/23 Status: Ordered montelukast 10 mg oral tablet 10 mg, 1, tablet, By Mouth, Daily at bedtime, # 90 tablet, Refills 0, Tot. Refills 0, Maintenance, 06/07/23 10:30:00 EDT, Route to Pharmacy Electronically, [facility], 158, cm, 03/14/23 11:23:00 EDT, Height, 96.1, [...] Name: Evangelina Houston RN Position: [facility] RN Member Role: Primary Care Nurse Name: Jim Bhatti MD Position: [facility] Cardiology MD Member Role: Lifetime Consulting Physician Address: Address: [address] [place] [address], [address] [facility] [place] [address]- Name: Jeanette Jimenez MD Position: [facility] Physician - Primary Care Member Role: PCP Address: Address: [address] [place] [address] [address] [place] [address]- Name: Justa Gong RN Position: [facility] AMB Nurse Member Role: Primary Care Nurse Care Team Related Persons Name: GARY RODRÍGUEZ Name: WHITNEY MTZ Address: home [address] [place] [address] Name: PHILIP AUGUSTE Name: DEANDRE LUGO Address: [address] [place] [address]
--- OUTSIDE RECORDS SUMMARY | 2023-09-22 18:06 | XMS_ITS | Continuity of Care Document ---
Author Name Unknown Organization [facility] Adult Address [address] [place] [address]- Care Team Providers Care Agile Project Manager Name Role Phone Tony FLORES, Jeanette Primary Care Physician [place] [facility] [place] 04/14/22 [facility] Adult [address] [place] [address]- Allergies, Adverse Reactions, Alerts Substance Reaction Severity [...] Mouth, Daily, # 90 tablet, 1 Refills, [facility] #[id number], 150.6, cm, 12/29/2214:17:00 EDT, Height Start Date: 01/19/22 Status: Ordered gabapentin 300 mg oral capsule 1, capsule, By Mouth, Daily at bedtime, # 90 capsule, Refills 0, Route to Pharmacy Electronically, [facility] #[id number], 150.6, cm, 12/29/21 15:17:00 EDT, Height Start Date: 01/27/22 Status: Ordered irbesartan 300 mg oral tablet 1 tablet, By Mouth, Daily, # 90 tablet, 0 Refills, [facility] #[id number], 150.6, cm, :17:00 EDT, Height Start Date: 03/12/22 Status: Ordered irbesartan 300 mg oral tablet 1 tablet, By Mouth, Daily, # 90 tablet, 0 Refills, [facility] #[id number], 150.6, cm, :17:00 EDT, Height Start Date: 03/12/22 Status: Ordered irbesartan 300 mg oral tablet See Instructions, TAKE 1 TABLET BY MOUTH DAILY, # 90 tablet, 0 Refills, [facility] #[id number], 150.6, cm, 03/04/22 8:17:00 EDT, Height Start Date: 03/12/22 Status: Ordered montelukast 10 mg oral tablet 10 mg, 1, tablet, By Mouth, Daily at bedtime, # 90 tablet, Refills 3, Tot. Refills 3, Maintenance, 09/05/19 9:52:07 EST, Route to Pharmacy Electronically, NCPDP_[id number], [facility] [address] [facility] [address], 150, cm, 07/10/19 14:06:31 EDT, Height, [...]
--- OUTSIDE RECORDS SUMMARY | 2023-09-22 18:06 | XMS_ITS | Continuity of Care Document ---
Author Name Unknown Organization [facility] Adult Address [address] [place] [address]- Care Team Providers Care Inventory Associate Name Role Phone Tony FLORES, Jeanette Primary Care Physician [phone] Encounter [facility] Date(s): 03/20/20 - 03/27/20 [facility] Adult [address] [place] [address] Encounter Diagnosis HTN (hypertension)(Discharge Diagnosis) - 03/22/20 Hyperlipidemia(Discharge Diagnosis) - 03/22/20 Aortic stenosis(Discharge Diagnosis) - 03/22/20 Attending Physician: Jeanette Jimenez MD Allergies, Adverse [...] 12/05/19 11:46:00 EDT, Route to Pharmacy Electronically, [facility] #[id number], 150.6, cm, 12/05/19 11:26:00 EDT, Height, 107.1, [...] Acute 01/02/21 10:05:00 EDT, 01/03/20 10:04:00 EDT, [facility] #[id number], 150.6, cm, 12/19/19 10:53:00 EDT, Height, 107.1, [...] 12/19/19 11:21:00 EDT, Route to Pharmacy Electronically, [facility] #[id number], 150.6, cm, 12/19/19 10:53:00 EDT, Height, 107.1, [...] 09/05/19 9:52:07 EST, Route to Pharmacy Electronically, NCPDP_[id number], [facility] - [address] [place] [address], 150, cm, 07/10/19 14:06:31 EDT, Height, 107.1, kg,... Start Date: 09/05/19 Status: Ordered Ocuvite 1 tablet, By Mouth, Daily, 0 Refills, Maintenance, 10/31/18 14:30:41 EST Start Date: 10/31/18 Status: Ordered Readi-Cat 2 2.1% oral suspension See Instructions, Please follow CT prep instructions, # 2 each, 0 Refills, Maintenance, 10/22/19 15:28:00 EST, [facility] - [address] [place] [address], Please follow CT prep instructions, 150.6, cm, 10/18/19 11:03:00 EST, Height, 107.1, kg, 07/10/19 14:06:00 EDT,... Start Date: 10/22/19 Status: Ordered Problem List Condition Effective Dates Status Health Status Inform ant Aortic stenosis(Confirmed) 1 Active Chronic low back pain(Confirmed) Active Hyperlipidemia(Confirmed) Active HTN (hypertension)(Confirmed) Active 1s/p TAVR Diagnosis Diagnosis Type Effective Dates Health Status Clinical Service Informant HTN (hypertension) Discharge Diagnosis 03/22/20 Hyperlipidemia Discharge Diagnosis 03/22/20 Aortic stenosis Discharge Diagnosis 03/22/20 Vital Signs Most recent to oldest [Reference Range]: 1 Height 150.6 cm (03/20/20 10:33 AM) Social History Social History Type Response Smoking Status Never (less than 100 in lifetime) entered on: 10/18/19 Sex
--- OUTSIDE RECORDS SUMMARY | 2023-09-22 18:06 | XMS_ITS | Continuity of Care Document ---
Author Name Unknown Organization [facility] Adult Address [address] [place] [address]- Care Team Providers Care Manager Print Name Role Phone Tony FLORES, Jeanette Primary Care Physician [id number] - 12/26/19 [facility] Adult [address] [place] [id number]- [facility] Encounter Diagnosis HTN (hypertension)(Discharge Diagnosis) - 12/22/19 Attending Physician: Jeanette Jimenez MD Allergies, Adverse [...] 12/05/19 11:46:00 EDT, Route to Pharmacy Electronically, [facility] #[id number], 150.6, cm, 12/05/19 11:26:00 EDT, Height, 107.1, kg, 10/15/19 14:06:00 EDT, . Start Date: 12/05/19 Status: Ordered aspirin 81 [...] EDT, Tablet Start Date: 05/09/19 Status: Ordered Flovent Diskus 250 mcg/inh inhalation [...] 12/19/19 11:21:00 EDT, Route to Pharmacy Electronically, [facility] #[id number], 150.6, cm, 12/19/19 10:53:00 EDT, Height, 107.1, [...] 09/05/19 9:52:07 EST, Route to Pharmacy Electronically, NCPDP_[id number], [facility] [address], 150, cm, 07/10/19 14:06:31 EDT, Height, 107.1, kg,... Start Date: 09/05/19 Status: Ordered Ocuvite 1 tablet, By Mouth, Daily, 0 Refills, Maintenance, 10/31/18 14:30:41 EST Start Date: 10/31/18 Status: Ordered Readi-Cat 2 2.1% oral suspension See Instructions, Please follow CT prep instructions, # 2 each, 0 Refills, Maintenance, 10/22/19 15:28:00 EST, [facility], Please follow CT prep instructions, 150.6, cm, 10/18/19 11:03:00 EST, Height, 107.1, kg, 07/10/19 14:06:00 EDT,... Start Date: 10/22/19 Status: Ordered Problem List Condition Effective Dates Status Health Status Inform ant Aortic stenosis(Confirmed) 1 Active Active asthma(Confirmed) Active Chronic low back pain(Confirmed) Active Hyperlipidemia(Confirmed) Active HTN (hypertension)(Confirmed) Active 1s/p TAVR Diagnosis Diagnosis Type Effective Dates Health Status Cl inical Service Informant HTN (hypertension) Discharge Diagnosis 12/22/19 Vital Signs Most recent to oldest [Reference Range]: 1 Height 150.6 cm (12/19/19 10:53 AM) Weight 108.6 kg (12/19/19 10:53 AM) Oxygen Saturation [94-100 %] 98 % (12/19/19 10:53 AM) Pulse Rate [55-90 bpm] 108 bpm *H* (12/19/19 10:53 AM) Body Mass Index [18.5-24.99] 47.88 *>HHI* (12/19/19 10:53 AM) Blood Pressure [90-138/55-84 mm Hg] 136/ 68mm Hg (12/19/19 10:53 AM) Temperature [96.8-100.4 DegF] 98.5 DegF (12/19/19 10:53 AM) Mode of Delivery (Oxygen) Room air (12/19/19 10:53 AM) Blood pressure sites Arm, left (12/19/19 10:53 AM) Temperature Route Oral (12/19/19 10:53 AM) Weight Obtained Via Standing scale (12/19/19 10:53 AM) Social History Social History Type Response Smoking Status Never (less than 100 in lifetime) entered on: 10/18/19 Sex
--- OUTSIDE RECORDS SUMMARY | 2023-09-22 18:06 | XMS_ITS | Continuity of Care Document ---
Author Name Unknown Organization [facility] Adult Address [address] [place] [address]- Care Team Providers Care Global Marketing Specialist Name Role Phone Tony FLORES, Jeanette Primary Care Physician [place] [facility] [place]/23 [facility] Adult [address] [place] [address]- Allergies, Adverse Reactions, Alerts Substance Reaction Severity [...] 0 Refills, Maintenance, 06/07/23 10:30:00 EDT, [facility], 158, cm, 03/14/23 11:23:00 EDT, Height, 96.1, kg, 03/10/23 12:51:00 EDT, Dry Weight Start Date: 06/07/23 Status: Ordered gabapentin 300 mg oral capsule 1, capsule, By Mouth, Daily at bedtime, # 90 capsule, Refills 0, Tot. Refills 0, Maintenance, 06/07/23 17:56:00 EDT, Route to Pharmacy Electronically, [facility], 158, cm, 03/14/23 11:23:00 EDT, Height, 96.1, kg, 03/10/23 12:51:00 EDT, Start Date: 06/07/23 Status: Ordered losartan 50 mg oral tablet 50 mg, 1, tablet, By Mouth, Daily, # 90 tablet, Refills 0, Tot. Refills 0, Maintenance, 06/07/23 10:30:00 EDT, Route to Pharmacy Electronically, [facility], Partial fill upon patient request if the prescription is for a schedule II opioid... Start Date: 06/07/23 Status: Ordered montelukast 10 mg oral tablet 10 mg, 1, tablet, By Mouth, Daily at bedtime, # 90 tablet, Refills 0, Tot. Refills 0, Maintenance, 06/07/23 10:30:00 EDT, Route to Pharmacy Electronically, [facility], 158, cm, 03/14/23 11:23:00 EDT, Height, [...] Team Personnel Name: Evangelina Houston RN Position: [facility] RN Member Role: Primary Care Nurse Name: Jim Bhatti MD Position: [facility] Cardiology MD Member Role: Lifetime Consulting Physician Address: Address: [address] [facility] [facility], [address] [facility] [place] [address]- Name: Jeanette Jimenez MD Position: [facility] Physician - Primary Care Member Role: PCP Address: Address: [address] [facility] 3rd [place] [address]- [place] Name: Justa Gong RN Position: [facility] AMB Nurse Member Role: Primary Care Nurse Care Team Related Persons Name: GARY RODRÍGUEZ Name: WHITNEY MTZ Address: home [address] [place] [address] Name: PHILIP AUGUSTE Name: DEANDRE LUGO Address: home [address] [place] [address]
--- OUTSIDE RECORDS SUMMARY | 2023-09-22 18:06 | XMS_ITS | Continuity of Care Document ---
Author Name Unknown Organization [facility] Adult Address [address] [place] [address]- Care Team Providers Care Digital Composer Name Role Phone Tony FLORES, Jeanette Primary Care Physician [phone] [facility] [place] Date(s): 04/18/22 - 05/18/22 [facility] Adult [address] [place] [address]- Allergies, Adverse Reactions, Alerts Substance Reaction Severity [...] Mouth, Daily, # 90 tablet, 1 Refills, [facility] #[id number], 150.6, cm, 12/29/2214:17:00 EDT, Height Start Date: 01/19/22 Status: Ordered gabapentin 300 mg oral capsule 1, capsule, By Mouth, Daily at bedtime, # 90 capsule, Refills 0, Route to Pharmacy Electronically, [facility] #[id number], 150.6, cm, 03/18/22 11:25:00 EDT, Height Start Date: 05/17/22 Status: Ordered irbesartan 300 mg oral tablet 1 tablet, By Mouth, Daily, # 90 tablet, 0 Refills, [facility] #[id number], 150.6, cm, :17:00 EDT, Height Start Date: 03/12/22 Status: Ordered irbesartan 300 mg oral tablet 1 tablet, By Mouth, Daily, # 90 tablet, 0 Refills, [facility] #[id number], 150.6, cm, :17:00 EDT, Height Start Date: 03/12/22 Status: Ordered irbesartan 300 mg oral tablet See Instructions, TAKE 1 TABLET BY MOUTH DAILY, # 90 tablet, 0 Refills, [facility] #[id number], 150.6, cm, 03/04/22 8:17:00 EDT, Height Start Date: 03/12/22 Status: Ordered montelukast 10 mg oral tablet 10 mg, 1, tablet, By Mouth, Daily at bedtime, # 90 tablet, Refills 3, Tot. Refills 3, Maintenance, 09/05/19 9:52:07 EST, Route to Pharmacy Electronically, NCPDP_ID-[id number], [facility] [...]
--- OUTSIDE RECORDS SUMMARY | 2023-09-22 18:06 | XMS_ITS | Continuity of Care Document ---
Author Name Unknown Organization [facility] Adult Address [address] [place] [address]- Care Team Providers Care Ripshear Operator Name Role Phone Tony FLORES, Jeanette Primary Care Physician [phone] [facility] [place] Date(s): 07/04/23 - 08/03/23 [facility] Adult [address] [place] [id number] Allergies, Adverse Reactions, Alerts Substance Reaction [...] tablet, 0 Refills, Maintenance, 06/07/23 10:30:00 EDT, [facility], 158, cm, 03/14/23 11:23:00 EDT, Height, 96.1, kg, 03/10/23 12:51:00 EDT, Dry Weight Start Date: 06/07/23 Status: Ordered gabapentin 300 mg oral capsule 1, capsule, By Mouth, Daily at bedtime, # 90 capsule, Refills 0, Tot. Refills 0, Maintenance, 06/07/23 17:56:00 EDT, Route to Pharmacy Electronically, [facility], 158, cm, 03/14/23 11:23:00 EDT, Height, 96.1, kg, 03/10/23 12:51:00 EDT, Start Date: 06/07/23 Status: Ordered Lasix 40 mg oral tablet 40 mg, 1, tablet, By Mouth, Daily, # 90 tablet, Refills 0, Tot. Refills 0, Maintenance, 07/08/23 13:58:00 EDT, Route to Pharmacy Electronically, [facility] #[id number], Partial fill upon patientrequest if the prescription is for a schedule II op... Start Date: 07/08/23 Status: Ordered losartan 50 mg oral tablet 50 mg, 1, tablet, By Mouth, Daily, # 90 tablet, Refills 0, Tot. Refills 0, Maintenance, 06/07/23 10:30:00 EDT, Route to Pharmacy Electronically, [facility], Partial fill upon patient request if the prescription is for a schedule II opioid... Start Date: 06/07/23 Status: Ordered montelukast 10 mg oral tablet 10 mg, 1, tablet, By Mouth, Daily at bedtime, # 90 tablet, Refills 0, Tot. Refills 0, Maintenance, 06/07/23 10:30:00 EDT, Route to Pharmacy Electronically, [facility], 158, cm, 03/14/23 11:23:00 EDT, Height, 96.1, kg, 03/10/23 12:51:00 ED... Start Date: 06/07/23 Status: Ordered Vitamin B12 1000 mcg oral tablet 1 tablet = 1,000 mcg, By Mouth, Daily, # 90 tablet, 1 Refills, Maintenance, 07/08/23 22:07:00 EDT, Tablet, [facility] #[id number], Partial fill upon patient request if the [...] Team Personnel Name: Evangelina Houston RN Position: [facility] RN Member Role: Primary Care Nurse Name: Jim Bhatti MD Position: [facility] Cardiology MD Member Role: Lifetime Consulting Physician Address: Address: [address] [place] [address], [address] [facility] [place] [address]- Name: Jeanette Jimenez MD Position: [facility] Physician - Primary Care Member Role: PCP Address: Address: [address] [facility] 3rd [place] [address]- Name: Justa Gong RN Position: [facility] Nurse Member Role: Primary Care Nurse Care Team Related Persons Name: GARY RODRÍGUEZ Name: WHITNEY MTZ Address: [address] [place] [address] Name: PHILIP AUGUSTE Name: DEANDRE LUGO Address: [address] [place] [address]
--- OUTSIDE RECORDS SUMMARY | 2023-09-22 18:06 | XMS_ITS | Continuity of Care Document ---
Author Name Unknown Organization [facility] Adult Address [address] [place] [address]- Care Team Providers Care Hollow Handle Bench Worker Name Role Phone Tony FLORES, Jeanette Primary Care Physician [phone] Encounter [facility] [place] Date(s): 07/27/23 - 08/26/23 [facility] Adult [address] [place] [address]- Allergies, Adverse Reactions, Alerts Substance Reaction Severity [...] tablet, 0 Refills, Maintenance, 06/07/23 10:30:00 EDT, [facility], 158, cm, 03/14/23 11:23:00 EDT, Height, 96.1, kg, 03/10/23 12:51:00 EDT, Dry Weight Start Date: 06/07/23 Status: Ordered gabapentin 300 mg oral capsule 1, capsule, By Mouth, Daily at bedtime, # 90 capsule, Refills 0, Tot. Refills 0, Maintenance, 06/07/23 17:56:00 EDT, Route to Pharmacy Electronically, [facility], 158, cm, 03/14/23 11:23:00 EDT, Height, 96.1, kg, 03/10/23 12:51:00 EDT, Start Date: 06/07/23 Status: Ordered Lasix 40 mg oral tablet 40 mg, 1, tablet, By Mouth, Daily, # 90 tablet, Refills 0, Tot. Refills 0, Maintenance, 07/08/23 13:58:00 EDT, Route to Pharmacy Electronically, [facility] #[id number], Partial fill upon patientrequest if the prescription is for a schedule II op... Start Date: 07/08/23 Status: Ordered losartan 50 mg oral tablet 50 mg, 1, tablet, By Mouth, Daily, # 90 tablet, Refills 0, Tot. Refills 0, Maintenance, 06/07/23 10:30:00 EDT, Route to Pharmacy Electronically, [facility], Partial fill upon patient request if the prescription is for a schedule II opioid... Start Date: 06/07/23 Status: Ordered montelukast 10 mg oral tablet 10 mg, 1, tablet, By Mouth, Daily at bedtime, # 90 tablet, Refills 0, Tot. Refills 0, Maintenance, 06/07/23 10:30:00 EDT, Route to Pharmacy Electronically, [facility], 158, cm, 03/14/23 11:23:00 EDT, Height, 96.1, kg, 03/10/23 12:51:00 ED... Start Date: 06/07/23 Status: Ordered Vitamin B12 1000 mcg oral tablet 1 tablet = 1,000 mcg, By Mouth, Daily, # 90 tablet, 1 Refills, Maintenance, 07/08/23 22:07:00 EDT, [id number], Partial fill upon patient request if the [...] Team Personnel Name: Evangelina Houston RN Position: [facility] RN Member Role: Primary Care Nurse Name: Magy FLORES, Jim Cheney Position: [facility] Cardiology MD Member Role: Lifetime Consulting Physician Address: Address: [address] [place] [address], [address] [facility] [place] [address]- Name: Jeanette Jimenez MD Position: [facility] Physician - Primary Care Member Role: PCP Address: Address: [address] [place] [address] 3rd [place] [address]- Name: Farideh ROSARIO, Justa Position: [facility] Nurse Member Role: Primary Care Nurse Care Team Related Persons Name: GARY RODRÍGUEZ Name: WHITNEY MTZ Address: [address] [place] [address] Name: PHILIP AUGUSTE Name: DEANDRE LUGO Address: [address] [place] [address]
--- OUTSIDE RECORDS SUMMARY | 2023-09-22 18:06 | XMS_ITS | Continuity of Care Document ---
Author Name Unknown Organization [facility] Adult Address [address] [place] [address]- Care Team Providers Care Administration Dean Name Role Phone Tony FLORES, Jeanette Primary Care Physician [phone] [place] [facility] [facility] [place] [id number] Date(s): 11/02/19 - 11/12/19 [facility] Adult [address] [place] [address]- [facility] Attending Physician: Harrison Russo Admitting Physician: Harrison Russo Referring Physician: Harrison Russo Allergies, Adverse Reactions, Alerts Substance Reaction Severity [...] 09/05/19 9:52:16 EST, Route to Pharmacy Electronically, NCPDP_[id number], [facility], 150, cm, 07/10/19 14:06:31 EDT, Height, [...] 09/05/19 9:52:07 EST, Route to Pharmacy Electronically, NCPDP_ID-[id number], [facility] [address] [facility] [address], 150, cm, 07/10/19 14:06:31 EDT, Height, 107.1, kg,... Start Date: 09/05/19 Status: Ordered Ocuvite 1 tablet, By Mouth, Daily, 0 Refills, Maintenance, 10/31/18 14:30:41 EST Start Date: 10/31/18 Status: Ordered Readi-Cat 2 2.1% oral suspension See Instructions, Please follow CT prep instructions, # 2 each, 0 Refills, Maintenance, 10/22/19 15:28:00 EST, [facility], Please follow CT prep instructions, 150.6, [...]
[2023-09-22 18:25] LABS: COVID-19 Test Negative (Negative); IDNOW Serial# BCCEAD1C
[2023-09-22 19:12] VITALS: BP 131/62; PULSE 97; RESP 16; TEMP 36.7; O2SAT 94
--- NOTE | 2023-09-22 19:32 | PHA.MEDREC ---
Pharmacy Consult ? Medication Reconciliation Pharmacy has completed the medication reconciliation. Contact the [facility] for medication list however they reported they did not have a list and to call [facility]. Family reported gabapentin for blood pressure and did not know any other medications. I contact [facility] which is the pharmacy that supplies [facility] with medications who was able to report active medications. Shreya Duron, PharmD
--- NOTE | 2023-09-22 21:53 | P.HPHOSP_ITS ---
History of Present Illness Date of Service: 09/22/23 Attending physician on admission: Odilon Puckett Chief Complaint: Bilateral lower extremity [email or web address] 83 year old obese white female with history of lymphedema, hyperlipidemia and hypertension who presents to the emergency room from the [facility] in [place] for evaluation of bilateral leg swelling and erythema. She states that the staff at [facility] were concerned with the swelling of her legs and the erythema and so sent her in. She does not have any specific complains stating that she feels at her usual baseline. she denies having any pain, fevers or chills. Initial work up done in the emergency room did not show any fevers and lab work with no leukocytosis. She however had mild elevation in serum potassium at 5.2 mmol/L. A diagnosis of cellulitis was made and she was on IV Vancomycin and admission thereafter requested for continued care. Of note, patient had urine culturs done on 08/30/2023 which grew ESBL Kblebsiella pneumoniae. At the time she was treated with Cephalexin. She does not endorse any urinary symptoms at this time though other than reporting not feeling well. Review of Systems 2 Review of Systems: Yes all other systems are reviewed and are negative [facility] Medical History (Updated 09/23/23 @ 01:26 by Garland Benítez MD) Lymphedema Stasis dermatitis of both legs Morbid obesity with BMI of 50.0-59.9, adult Hyperlipidemia Hypertension, essential Functional capacity: uses cane/walker Patient : No Pertinent family history: Reviewed with patient and not pertinent to this admission Social History Patient Tobacco Use Status: Never used Tobacco Smoked in Last 30 Days: No Use of substances other than those prescribed or required for medical reasons: No Advance Directives: Yes Advance Directives on File: Yes Advance Directives Date on File: 09/22/23 Patient : No Meds Allergies Allergy/AdvReac Type Severity Reaction Status Date / Time doxycycline Allergy Unknown Verified 09/09/23 17:53 Penicillins Allergy Unknown Verified 09/09/23 17:53 pneumococcal vaccine Allergy Unknown Verified 09/09/23 17:53 [From Pneumovax-] Home Medications Medication Instructions Recorded Confirmed Last Taken Type atorvastatin 20 mg tablet 20 mg PO DAILY 09/22/23 09/22/23 Unknown History gabapentin 300 mg capsule 300 mg PO BEDTIME 09/22/23 09/22/23 Unknown History losartan 50 mg tablet 50 mg PO DAILY 09/22/23 09/22/23 Unknown History montelukast 10 mg tablet 10 mg PO QPM 09/22/23 09/22/23 Unknown History (Solangeir) Physical Exam 2 Vital Signs and Narrative: Vital Signs: Last Vital Signs Temp 98.1 F 09/22/23 19:12 Pulse 97 09/22/23 19:12 Resp 16 09/22/23 19:12 BP 131/62 09/22/23 19:12 Pulse Ox 94 09/22/23 19:12 O2 Del Method Room Air 09/22/23 19:12 BMI result Body Mass Index 51.0 General: Obese white female in bed. Awake and alert. Oriented x 4. No apparent distress Eyes: No pallor or jaundice. PERRLA, EOMI HENT: Moist oral mucus membranes. No oropharyngeal lesions. Neck: Supple. No cervical adenopathy. No JVD Cardiovascular: Regular rate and rhythm. Normal heart sounds. No murmurs, rubs or gallops. No JVD. No peripheral edema. Respiratory: Normal respiratory effort with no accessory muscle use. CTAB. Gastrointestinal: Abdomen is soft, non-tender, non-distended. NABS. No hepatosplenomegaly Extremities: Lymphedema of both legs which are both red from the mid-ramirez to the ankles. Rt ramirez with what appears to be superficial wounds. No calf tenderness. Good peripheral pulses Skin - Warm/Dry. No rashes. No mottling. Capillary refill is < 2 seconds Neurological - AAOx4. Intact speech & cognition. Normal gait & balance. CN II - XII grossly intact but not individually tested. No motor or sensory deficits Hematologic: No bleeding. No ecchymosis. No swollen or tender lymph nodes. Psychiatric: Cooperative. Appropriate mood and affect Results Labs 09/22/23 17:20 09/22/23 17:20 Labs: Laboratory Results - last 24 hr 09/22/23 09/22/23 17:20 17:49 MCV 90.9 MCH 29.0 MCHC 31.9 RDW 14.6 Plt Count 336 MPV 9.7 Immature Gran % (Auto) 0.5 H Neut % (Auto) 63.7 Lymph % (Auto) 22.9 [place] % (Auto) 9.6 Eos % (Auto) 2.4 Baso % (Auto) 0.9 Lymph # (Auto) 2.0 [place] # (Auto) 0.8 Eos # (Auto) 0.2 Baso # (Auto) 0.1 Abs Immat Gran (auto) 0.04 H Absolute Neuts (auto) 5.5 Absolute Nucleated RBC 0.000 Nucleated RBC % (auto) 0.0 Anion Gap 16 Estim Creat Clear Calc 56.8 Estimated GFR 60 Random Glucose 95 Lactic Acid 0.7 Calcium 9.1 Total Bilirubin 0.3 AST 23 ALT 10 Alkaline Phosphatase 72 Total Protein 7.6 Albumin 3.7 COVID-19 (VICTORIANO) Negative COVID-19 Clin Com See Note Assessment and Plan (1) Chronic stasis dermatitis: Status: Acute (2) Hypertension, essential: Status: Acute (3) Hyperlipidemia: Qualifiers: Hyperlipidemia type: unspecified Qualified Code(s): E78.5 - Hyperlipidemia, unspecified Status: Acute (4) Morbid obesity with BMI of 50.0-59.9, adult: Status: Acute Plan 83 year old obese white female with history of lymphedema, hyperlipidemia and hypertension here with: 1. Cellulites of both legs - noted with redness of both legs from mid ramirez to the ankles - concern for cellulitis versus chronic stasis dermatitis in setting of lymphedema - admit and continue with IV antibiotics today 2. ESBL Klebsiella pneumonia UTI - found with ESBL K. Pneumonia in urine sample from - was treated suboptimally with Cephlexin - patient is however asymptomatic - repeat urinalysis - start Ertapenem - consider ID consult 3. Hypertension - resume Losartan 4. Hyperlipidemia - resume Atorvastatin 5. Morbid obesity - BMI 51 - encourage weight loss DVT: SC Lovenox CODE STATUS: Full code Total time managing care of this patient today: 55 minutes. Quality Stroke Does the patient have a stroke diagnosis?: No VTE Prior VTE?: No VTE Risk Level:: Medical - moderate - high VTE Device Contraindication: N/A - Device Ordered VTE Drug Contraindication: N/A - Med Ordered
[2023-09-22 22:05] VITALS: BP 169/90; PULSE 94; RESP 18; TEMP 36.8; O2SAT 95
[2023-09-22] MEDS: Enoxaparin Sodium 40 MG/0.4 ML SYRINGE SUBCUT (22:44)
[2023-09-23] MEDS: 0.9 % Sodium Chloride Flush 3 ML SYRINGE IVFLUSH ×4 (00:33→20:28)
[2023-09-23] MEDS: Furosemide 40 MG/4 ML VIAL IVPUSH (01:28)
[2023-09-23] MEDS: Montelukast Sodium 10 MG TABLET PO ×2 (01:28→20:25)
[2023-09-23] MEDS: Nitrofurantoin Monohyd/M-Cryst 100 MG CAPSULE PO (01:29)
[2023-09-23 01:38] LABS: Appearance Urine Clear; Color Urine Yellow; Glucose Urine UA Negative (Negative); Leukocyte Esterase Urine Negative (Negative); Nitrite Urine Negative (Negative); PH 5.5 (5.0-9.0); Urine Blood Negative (Negative); Urine Ketones Negative (Negative); Urine Protein Negative (Neg-Trace)
[2023-09-23 02:04] VITALS: BP 136/69; PULSE 88; RESP 18; TEMP 37.4; O2SAT 95
--- NOTE | 2023-09-23 04:27 | PC.NURSE ---
Pt is asleep comfortably in bed at this time. Pt has eaten a sandwich with no complications. Purewick in place, output approx 1500mL of clear, yellow urine. Pt has no complaints at this time. Waiting bed assignment.
[2023-09-23 05:54] VITALS: BP 122/65; PULSE 84; RESP 18; TEMP 37.2; O2SAT 95
--- NOTE | 2023-09-23 06:06 | MHC.EDTECH ---
Vitals updated, haraplwimita emptied of 1000ml. RN aware. Pt informed that she is still awaiting bed assignment upstairs. Pt stated she is comfortable, desmond checked for placement.
[2023-09-23 06:17] LABS: MANUAL DIFF FLAG NO
[2023-09-23 06:20] LABS: Basophils Absolute Auto 0.1 X10*3/uL (0.0-0.2); Basophils Percent Auto 0.9 % (0-2); Eosinophils Absolute Auto 0.2 X10*3/uL (0.0-0.4); Eosinophils Percent Auto 3.2 % (0-4); Hematocrit 30.7 % (37.0-47.0); Imm Gran Abs Auto 0.02 X10*3/uL (0.00-0.03); Imm Gran Pct Auto 0.3 % (0.0-0.4); Lymphocytes Absolute Auto 1.9 X10*3/uL (1.2-4.9); Lymphocytes Percent Auto 28.9 % (20-40); Mean Corpuscular HGB Conc 32.6 g/dl (31.0-35.0); Mean Corpuscular Hemoglobin 29.1 pg (27.0-33.0); Mean Corpuscular Volume 89.2 fL (80.0-98.0); Mean Platelet Volume 9.3 fL (9.4-12.3); Monocytes Absolute Auto 0.7 X10*3/uL (0.1-1.2); Neutrophils Absolute Auto 3.6 x10*3/uL (2.0-8.3); Neutrophils Percent Auto 55.7 % (45-73); Platelet Count 305 X10*3/uL (160-400); Red Blood Count 3.44 X10*6/uL (4.20-5.50); Red Cell Distribution Width 14.6 % (11.0-16.0); White Blood Count 6.5 X10*3/uL (4.8-10.8)
[2023-09-23 06:34] LABS: Anion Gap 12 (12-20); Blood Urea Nitrogen 23 mg/dL (9-16); Calcium 8.7 mg/dL (8.4-10.2); Carbon Dioxide 24 mmol/L (22-29); Chloride 108 mmol/L (96-108); Creatinine Clr Calc Pharmacy 62.3; Estimated Glomerular Filt Rate > 60; Glucose Random 92 mg/dL (60-115); Potassium 4.2 mmol/L (3.3-5.1); Sodium 140 mmol/L (135-145)
[2023-09-23 09:37] VITALS: BP 122/65; PULSE 84; O2SAT 95
[2023-09-23] MEDS: Losartan Potassium 50 MG TABLET PO (09:44)
[2023-09-23] MEDS: Docusate Sodium 100 MG CAPSULE PO ×2 (09:44→20:25)
[2023-09-23] MEDS: Atorvastatin Calcium 20 MG TABLET PO (09:44)
--- NOTE | 2023-09-23 10:06 | MHC.CM.PN ---
Addendum entered by Donna Bradshaw 09/23/23 10:18: CM ATTEMPTED TO REACH PTS GRANDDAUGHTER/POAGARY [phone], PER PTS REQUEST A VM MESSAGE WAS LEFT REQUESTING A RETURN CALL Original Note: PT REPORTS SHE LIVES AT THE [facility] SHE SAYS THEY PROVIDE HOUSEKEEPING, MEALS, PERSONAL CARE ASSISTANCE, AND MED MANAGEMENT PT REPORTS IF INDICATED, SHE WOULD BE INTERESTED IN [facility] FOR PT/SN PT HAS A WALKER SHE SAYS SHE USES AT [facility] SHE HAS A MOLST AND POA ON FILE SHE REPORTS HER DAUGHTER LAST YEAR, SO HER GRAND DAUGHTERGARY IS NOW HER HC AGENT/POA PCP: BETTINA MORRIS lOBSERVATION NOTICE DELIVERED DCP: RETURN TO [facility] ? [facility] FAMILY TO TRANSPORT OF NOTE: PT STATES SHE WOULD BE INTERESTED IN STR IF SHE WERE TO CONVERT TO INPATIENT AND BE ELIGIBLE
--- NOTE | 2023-09-23 13:16 | HO.PM.IMPN ---
Subjective Subjective Date of Service: 09/23/23 Interval History: Bilateral lower extremity -both red from the mid-ramirez to the ankles no fever Review of Systems Review of Systems: Yes all other systems are reviewed and are negative Physical Exam Vital Signs: Vital Signs: Last Vital Signs Temp 98.9 F 09/23/23 05:54 Pulse 84 09/23/23 09:37 Resp 18 09/23/23 05:54 BP 122/65 09/23/23 09:37 Pulse Ox 95 09/23/23 09:37 O2 Del Method Room Air 09/23/23 05:54 BMI result Body Mass Index 51.0 Appearance: Alert.? Oriented X3.? cvs: rrr, [id number] , no murmur res: clear to auscultation ,no rhonchii or wheezing abd: no rebound or guarding ,nt, bs present. ext pulses present , no cyanosis ,b/l lower ext erythema . neuro: axo3 , nonfocal. Objective Data Active Medications Acetaminophen (Acetaminophen 325 Mg Tablet) 650 mg PO Q6H PRN PRN Reason: Pain, Mild (Pain Scale 1-3) Al Hydroxide/Mg Hydroxide (Magnesium Hydrox/Alum Hydrox 30 Ml Oral.Susp) 30 ml PO Q4H PRN PRN Reason: Heartburn/Nausea Atorvastatin Calcium (Atorvastatin Calcium 20 Mg Tablet) 20 mg PO DAILY [facility] Last Admin: 09/23/23 09:44 Dose: 20 mg Documented By: CANDIDO Docusate Sodium (Docusate Sodium 100 Mg Capsule) 100 mg PO BID [facility] Last Admin: 09/23/23 09:44 Dose: 100 mg Documented By: CANDIDO Enoxaparin Sodium (Enoxaparin Sodium 40 Mg/0.4 Ml Syringe) 40 mg SUBCUT Q24H [facility] Last Admin: 09/22/23 22:44 Dose: 40 mg Documented By: ONELIA Gabapentin (Gabapentin 300 Mg Capsule) 300 mg PO BEDTIME [facility] Losartan Potassium (Losartan Potassium 50 Mg Tablet) 50 mg PO DAILY [facility]; Protocol Last Admin: 09/23/23 09:44 Dose: 50 mg Documented By: CANDIDO Melatonin (Melatonin 3 Mg Tablet) 6 mg PO BEDTIME PRN PRN Reason: Insomnia Montelukast Sodium (Montelukast Sodium 10 Mg Tablet) 10 mg PO BEDTIME [facility] Last Admin: 09/23/23 01:28 Dose: 10 mg Documented By: ONELIA Ondansetron HCl (Ondansetron Hcl 4 Mg/2 Ml Vial) 4 mg IVPUSH Q8H PRN PRN Reason: Nausea and Vomiting Pharmacy Consult (Consult Rx Vancomycin Dosing) 1 each MISCELLANE DAILY PRN PRN Reason: Consult order Sodium Chloride (0.9 % Sodium Chloride Flush 3 Ml Syringe) [facility] Admin: 09/23/23 09:45 Dose: 3 ml Documented By: CANDIDO Labs 09/23/23 06:13 09/23/23 06:13 Labs: Laboratory Results - last 24 hr 09/22/23 09/22/23 09/23/23 17:20 17:49 01:28 MCV 90.9 MCH 29.0 MCHC 31.9 RDW 14.6 Plt Count 336 MPV 9.7 Immature Gran % (Auto) 0.5 H Neut % (Auto) 63.7 Lymph % (Auto) 22.9 [place] % (Auto) 9.6 Eos % (Auto) 2.4 Baso % (Auto) 0.9 Lymph # (Auto) 2.0 [place] # (Auto) 0.8 Eos # (Auto) 0.2 Baso # (Auto) 0.1 Abs Immat Gran (auto) 0.04 H Absolute Neuts (auto) 5.5 Absolute Nucleated RBC 0.000 Nucleated RBC % (auto) 0.0 Anion Gap 16 Estim Creat Clear Calc 56.8 Estimated GFR 60 Random Glucose 95 Lactic Acid 0.7 Calcium 9.1 Total Bilirubin 0.3 AST 23 ALT 10 Alkaline Phosphatase 72 Total Protein 7.6 Albumin 3.7 Urine Color Yellow Urine Appearance Clear Urine pH 5.5 Ur Specific Opp 1.020 Urine Protein Negative Urine Glucose (UA) Negative Urine Ketones Negative Urine Blood Negative Urine Nitrite Negative Ur Leukocyte Esterase Negative COVID-19 (VICTORIANO) Negative COVID-19 Clin Com See Note 09/23/23 06:13 MCV 89.2 MCH 29.1 MCHC 32.6 RDW 14.6 Plt Count 305 MPV 9.3 L Immature Gran % (Auto) 0.3 Neut % (Auto) 55.7 Lymph % (Auto) 28.9 [place] % (Auto) 11.0 Eos % (Auto) 3.2 Baso % (Auto) 0.9 Lymph # (Auto) 1.9 [place] # (Auto) 0.7 Eos # (Auto) 0.2 Baso # (Auto) 0.1 Abs Immat Gran (auto) 0.02 Absolute Neuts (auto) 3.6 Absolute Nucleated RBC 0.000 Nucleated RBC % (auto) 0.0 Anion Gap 12 Estim Creat Clear Calc 62.3 Estimated GFR > 60 Random Glucose 92 Lactic Acid Calcium 8.7 Total Bilirubin AST ALT Alkaline Phosphatase Total Protein Albumin Urine Color Urine Appearance Urine pH Ur Specific Opp Urine Protein Urine Glucose (UA) Urine Ketones Urine Blood Urine Nitrite Ur Leukocyte Esterase COVID-19 (VICTORIANO) COVID-19 Clin Com Assessment and Plan (1) Cellulitis: Status: Acute (2) Urinary tract infection due to ESBL Klebsiella: Status: Acute Plan 83 year old obese white female with history of lymphedema, hyperlipidemia and hypertension here with: 1. Cellulites of both legs- noted with redness of both legs from mid ramirez to the ankles concern for cellulitis versus chronic stasis dermatitis in setting of lymphedema continue with IV antibiotics 2. ESBL Klebsiella pneumonia UTI-found with ESBL K. Pneumonia in urine sample from was treated suboptimally with Cephlexin patient is however asymptomatic repeat urinalysis -neg Id eval-cellulitis/?esbl klebsella. 3. Hypertension - resume Losartan 4. Hyperlipidemia - resume Atorvastatin 5. Morbid obesity - BMI 51 - encourage weight loss DvT: SC Lovenox code status : Full code ongoing hospitlisation need:Cellulitis of both legs,esbl? bacteruria ,cellulitis considering morbid obesity and lympedema might get worsen - need iv antibiotics and inpatient monitering clinical renal function/electrolytes. Quality Stroke Does the patient have a stroke diagnosis?: No VTE Prior VTE?: No VTE Risk Level:: Medical - moderate - high VTE Device Contraindication: N/A - Device Ordered VTE Drug Contraindication: N/A - Med Ordered
--- NOTE | 2023-09-23 13:25 | PC.NURSE ---
another person hospital may contact is: [phone]
[2023-09-23 14:20] VITALS: BP 130/64; PULSE 78; RESP 16; TEMP 36.9; O2SAT 96
--- NOTE | 2023-09-23 15:30 | PC.NURSE ---
Addendum entered by Edie Dukes RN 09/23/23 15:46: 379* Original Note: Patient arrived to ED O.F. @ 14:00 as a M/S admission. VSS. Contact precautions in place. A+Ox2, forgetful. Call cisneros within reach. Pt inct stool x1, cleaned and purwick replaced. draining CYU. IV L AC patent. Cellulitis to BLE, swelling +3, redness and weeping noted. Warm hand-off given to Gwendolyn Miller on S3. Transport arrived to transfer patient and her belongings to Rm [id number].
[2023-09-23 15:54] VITALS: BP 137/78; PULSE 83; RESP 18; TEMP 36.2; O2SAT 95
[2023-09-23] MEDS: Acetaminophen 325 MG TABLET 650 MG PO (17:24)
[2023-09-23] MEDS: vancomycin HCL 1,250 MG in 0.9 % Sodium Chloride 250 ML 166.67 MG IV (17:24)
[2023-09-23 19:15] VITALS: BP 117/67; PULSE 84; RESP 18; TEMP 36.1; O2SAT 94
[2023-09-23] MEDS: Enoxaparin Sodium 40 MG/0.4 ML SYRINGE SUBCUT (20:26)
[2023-09-23] MEDS: Gabapentin 300 MG CAPSULE PO (20:26)
--- NOTE | 2023-09-23 23:36 | P.CNID_ITS ---
History of Present Illness Data of Consult Service Date: 09/23/23 Requesting physician: Shanti Huang Primary Care Provider: Unknown Physician HPI Reason for consult: chronic stasis leg changes She presents with weakness and fatigue She has no UTI symptoms. She has chronic stasis changes legs. She has no fever or chills. Review of Systems 2 Review of Systems: Yes all other systems are reviewed and are negative PMFSH Past Medical History Medical History Lymphedema Stasis dermatitis of both legs Morbid obesity with BMI of 50.0-59.9, adult Hyperlipidemia Hypertension, essential Family History Family history: reviewed and not pertinent Social History Social History Household Members: None and Other Housing: Assisted Living Facility Housing Other:: [place] Do you presently have visiting nurse or other home services: No Patient Tobacco Use Status: Never used Tobacco Smoked in Last 30 Days: No Use of substances other than those prescribed or required for medical reasons: No Have you been hit, kicked, punched, or otherwise hurt by someone within the past year? If so, by whom?: No Do you feel safe in your current relationship?: Yes Is there a partner from a previous relationship who is making you feel unsafe now?: No Are you made to feel afraid or neglected: No Advance Directives: Yes Advance Directives on File: Yes Advance Directives Date on File: 09/22/23 Do you have thoughts of harming others: None Do you have a plan to hurt others: No Plan Recently lost weight without trying: No Nutrition Risks: No Nutritional Risk Patient : No : No Poor oral hygiene: No service: No Meds Allergies Allergy/AdvReac Type Severity Reaction Status Date / Time doxycycline Allergy Unknown Verified 09/09/23 17:53 Penicillins Allergy Unknown Verified 09/09/23 17:53 pneumococcal vaccine Allergy Unknown Verified 09/09/23 17:53 [From Pneumovax-] Active Medications: Current Medications Acetaminophen (Acetaminophen 325 Mg Tablet) 650 mg PO Q6H PRN PRN Reason: Pain, Mild (Pain Scale 1-3) Last Admin: 09/23/23 17:24 Dose: 650 mg Al Hydroxide/Mg Hydroxide (Magnesium Hydrox/Alum Hydrox 30 Ml Oral.Susp) 30 ml PO Q4H PRN PRN Reason: Heartburn/Nausea Atorvastatin Calcium (Atorvastatin Calcium 20 Mg Tablet) 20 mg PO DAILY [facility] Last Admin: 09/23/23 09:44 Dose: 20 mg Docusate Sodium (Docusate Sodium 100 Mg Capsule) 100 mg PO BID [facility] Last Admin: 09/23/23 20:25 Dose: 100 mg Enoxaparin Sodium (Enoxaparin Sodium 40 Mg/0.4 Ml Syringe) 40 mg SUBCUT Q24H [facility] Last Admin: 09/23/23 20:26 Dose: 40 mg Gabapentin (Gabapentin 300 Mg Capsule) 300 mg PO BEDTIME [facility] Last Admin: 09/23/23 20:26 Dose: 300 mg Vancomycin HCl 1,250 mg/ (Sodium Chloride) 250 mls @ 166.667 mls/hr IV Q24H [facility] Last Infusion: 09/23/23 20:30 Dose: Infused Losartan Potassium (Losartan Potassium 50 Mg Tablet) 50 mg PO DAILY [facility]; Protocol Last Admin: 09/23/23 09:44 Dose: 50 mg Melatonin (Melatonin 3 Mg Tablet) 6 mg PO BEDTIME PRN PRN Reason: Insomnia Montelukast Sodium (Montelukast Sodium 10 Mg Tablet) 10 mg PO BEDTIME [facility] Last Admin: 09/23/23 20:25 Dose: 10 mg Ondansetron HCl (Ondansetron Hcl 4 Mg/2 Ml Vial) 4 mg IVPUSH Q8H PRN PRN Reason: Nausea and Vomiting Pharmacy Consult (Consult Rx Vancomycin Dosing) 1 each MISCELLANE DAILY PRN PRN Reason: Consult order Sodium Chloride (0.9 % Sodium Chloride Flush 3 Ml Syringe) 3 ml IVFLUSH QSHIFT [facility] Last Admin: 09/23/23 20:28 Dose: 3 ml Home Medications Medication Instructions Recorded Confirmed Last Taken Type atorvastatin 20 mg tablet 20 mg PO DAILY 09/22/23 09/22/23 Unknown History gabapentin 300 mg capsule 300 mg PO BEDTIME 09/22/23 09/22/23 Unknown History losartan 50 mg tablet 50 mg PO DAILY 09/22/23 09/22/23 Unknown History montelukast 10 mg tablet 10 mg PO QPM 09/22/23 09/22/23 Unknown History (Singulair) Physical Exam 2 Vital Signs: Vital Signs: Last Vital Signs Temp 97 F 09/23/23 19:15 Pulse 84 09/23/23 19:15 Resp 18 09/23/23 19:15 BP 117/67 09/23/23 19:15 Pulse Ox 94 09/23/23 19:15 O2 Del Method Room Air 09/23/23 15:54 BMI result Body Mass Index 51.0 Extrem: Other: chronic venous stasis changes legs,cellulitis resolved Results Labs 09/23/23 06:13 09/23/23 06:13 Labs: Short CBC 09/23/23 Range/Units 06:13 WBC 6.5 (4.8-10.8) X10*3/uL Hgb 10.0 L (12.0-16.0) g/dl Hct 30.7 L (37.0-47.0) % Plt Count 305 (160-400) X10*3/uL BMP 09/23/23 06:13 Sodium 140 Potassium 4.2 Chloride 108 Carbon Dioxide 24 BUN 23 H Creatinine 0.82 Calcium 8.7 Urine 09/23/23 Range/Units 01:28 Urine Color Yellow Urine Appearance Clear Urine pH 5.5 (5.0-9.0) Ur Specific [place] 1.020 (1.005-1.025) Urine Protein Negative (Neg-Trace) mg/dL Urine Glucose (UA) Negative (Negative) mg/dL Microbiology Microbiology Results: Microbiology 09/22/23 17:49 Blood - Venous Blood Culture - Preliminary No growth after 24 hours. 09/22/23 17:20 Blood - Venous Blood Culture - Preliminary No growth after 24 hours. Assessment and Plan (1) Chronic stasis dermatitis: Status: Acute She has venous stasis changes Plan Po Doxycycline for 10 days
[2023-09-24 03:31] VITALS: BP 125/75; PULSE 77; RESP 18; TEMP 36; O2SAT 93
[2023-09-24] MEDS: Acetaminophen 325 MG TABLET 650 MG PO ×3 (06:37→21:19)
[2023-09-24 07:51] VITALS: BP 133/76; PULSE 75; RESP 16; TEMP 36; O2SAT 96
[2023-09-24] MEDS: Losartan Potassium 50 MG TABLET PO (08:56)
[2023-09-24] MEDS: 0.9 % Sodium Chloride Flush 3 ML SYRINGE IVFLUSH ×3 (08:56→21:18)
[2023-09-24] MEDS: Docusate Sodium 100 MG CAPSULE PO (08:56)
[2023-09-24] MEDS: Atorvastatin Calcium 20 MG TABLET PO (08:56)
--- NOTE | 2023-09-24 11:14 | HO.PM.IMPN ---
Subjective Subjective Date of Service: 09/24/23 Interval History: Bilateral lower extremity -both red from the mid-ramirez to the ankles no fever Review of Systems Review of Systems: Yes all other systems are reviewed and are negative Physical Exam Vital Signs: Vital Signs: Last Vital Signs Temp 96.8 F 09/24/23 07:51 Pulse 75 09/24/23 07:51 Resp 16 09/24/23 07:51 BP 133/76 09/24/23 07:51 Pulse Ox 96 09/24/23 07:51 O2 Del Method Room Air 09/24/23 07:51 BMI result Body Mass Index 51.0 Appearance: Alert.? Oriented X3.? cvs: rrr, [id number] , no murmur res: clear to auscultation ,no rhonchii or wheezing abd: no rebound or guarding ,nt, bs present. ext pulses present , no cyanosis ,b/l lower ext erythema . neuro: axo3 , nonfocal. Objective Data Active Medications Acetaminophen (Acetaminophen 325 Mg Tablet) 650 mg PO Q6H PRN PRN Reason: Pain, Mild (Pain Scale 1-3) Last Admin: 09/24/23 06:37 Dose: 650 mg Documented By: GENIE Al Hydroxide/Mg Hydroxide (Magnesium Hydrox/Alum Hydrox 30 Ml Oral.Susp) 30 ml PO Q4H PRN PRN Reason: Heartburn/Nausea Atorvastatin Calcium (Atorvastatin Calcium 20 Mg Tablet) 20 mg PO DAILY [facility] Last Admin: 09/24/23 08:56 Dose: 20 mg Documented By: WALDO Docusate Sodium (Docusate Sodium 100 Mg Capsule) 100 mg PO BID [facility] Last Admin: 09/24/23 08:56 Dose: 100 mg Documented By: WALDO Enoxaparin Sodium (Enoxaparin Sodium 40 Mg/0.4 Ml Syringe) 40 mg SUBCUT Q24H [facility] Last Admin: 09/23/23 20:26 Dose: 40 mg Documented By: BRYANNA Gabapentin (Gabapentin 300 Mg Capsule) 300 mg PO BEDTIME [facility] Last Admin: 09/23/23 20:26 Dose: 300 mg Documented By: BRYANNA Losartan Potassium (Losartan Potassium 50 Mg Tablet) 50 mg PO DAILY [facility]; Protocol Last Admin: 09/24/23 08:56 Dose: 50 mg Documented By: WALDO Melatonin (Melatonin 3 Mg Tablet) 6 mg PO BEDTIME PRN PRN Reason: Insomnia Montelukast Sodium (Montelukast Sodium 10 Mg Tablet) 10 mg PO BEDTIME [facility] Last Admin: 09/23/23 20:25 Dose: 10 mg Documented By: BRYANNA Ondansetron HCl (Ondansetron Hcl 4 Mg/2 Ml Vial) 4 mg IVPUSH Q8H PRN PRN Reason: Nausea and Vomiting Sodium Chloride (0.9 % Sodium Chloride Flush 3 Ml Syringe) 3 ml IVFLUSH QSHIFT [facility] Last Admin: 09/24/23 08:56 Dose: 3 ml Documented By: WALDO Labs 09/23/23 06:13 09/23/23 06:13 Microbiology Microbiology Results: Microbiology 09/22/23 17:49 Blood Culture - Preliminary Blood - Venous No growth after 24 hours. 09/22/23 17:20 Blood Culture - Preliminary Blood - Venous No growth after 24 hours. Assessment and Plan (1) Cellulitis: Status: Acute (2) Urinary tract infection due to ESBL Klebsiella: Status: Acute Plan 83 year old obese white female with history of lymphedema, hyperlipidemia and hypertension here with: 1. Cellulites of both legs- noted with redness of both legs from mid ramirez to the ankles concern for cellulitis versus chronic stasis dermatitis in setting of lymphedema continue with IV antibiotics 2. ESBL Klebsiella pneumonia UTI-found with ESBL K. Pneumonia in urine sample from was treated suboptimally with Cephlexin patient is however asymptomatic repeat urinalysis -neg Id eval-cellulitis/?esbl klebsella-less likely uti. esbl? bacteruria -possible colonisation. 3. Hypertension - resume Losartan 4. Hyperlipidemia - resume Atorvastatin 5. Morbid obesity - BMI 51 - encourage weight loss Pt recomended rehab DvT: SC Lovenox code status : Full code ongoing hospitlisation need:Cellulitis of both legs,cellulitis considering morbid obesity and lympedema might get worsen - switched to po antibiotcs ,need placement. Quality Stroke Does the patient have a stroke diagnosis?: No VTE Prior VTE?: No VTE Risk Level:: Medical - moderate - high VTE Device Contraindication: N/A - Device Ordered VTE Drug Contraindication: N/A - Med Ordered
[2023-09-24 15:33] VITALS: BP 167/82; PULSE 75; RESP 20; TEMP 36; O2SAT 93
[2023-09-24] MEDS: Linezolid 600 MG TABLET PO (16:30)
[2023-09-24 19:19] VITALS: BP 133/74; PULSE 73; RESP 18; TEMP 36.5; O2SAT 93
[2023-09-24] MEDS: Enoxaparin Sodium 40 MG/0.4 ML SYRINGE SUBCUT (21:18)
[2023-09-24] MEDS: Montelukast Sodium 10 MG TABLET PO (21:18)
[2023-09-24] MEDS: Gabapentin 300 MG CAPSULE PO (21:18)
[2023-09-25 03:20] VITALS: BP 151/70; PULSE 78; RESP 17; TEMP 36.7; O2SAT 91
[2023-09-25] MEDS: Linezolid 600 MG TABLET PO ×2 (04:50→15:36)
[2023-09-25 08:00] VITALS: BP 136/64; PULSE 80; RESP 18; TEMP 36.3; O2SAT 93
[2023-09-25] MEDS: Acetaminophen 325 MG TABLET 650 MG PO ×3 (08:20→23:38)
[2023-09-25] MEDS: Losartan Potassium 50 MG TABLET PO (08:21)
[2023-09-25] MEDS: Atorvastatin Calcium 20 MG TABLET PO (08:21)
[2023-09-25] MEDS: 0.9 % Sodium Chloride Flush 3 ML SYRINGE IVFLUSH ×3 (08:21→20:09)
--- NOTE | 2023-09-25 13:01 | PC.NURSE ---
Pt being turned and repositioned in bed every 2 hours and as needed. Heals floating on pillows. Petroleum based ointment applied to bilateral lower extremities, legs flaky, red, painful, with minimal weeping noted MD aware. Tylenol given with mild effect.
--- NOTE | 2023-09-25 13:34 | P.PNIM_ITS ---
Subjective Subjective Date of Service: 09/25/23 Interval History: Bilateral lower extremity -both red from the mid-ramirez to the ankles. no fever Review of Systems Review of Systems: Yes all other systems are reviewed and are negative Physical Exam 2 Vital Signs: Vital Signs: Last Vital Signs Temp 97.3 F 09/25/23 08:00 Pulse 80 09/25/23 08:00 Resp 18 09/25/23 08:00 BP 136/64 09/25/23 08:00 Pulse Ox 93 09/25/23 08:00 O2 Del Method Room Air 09/25/23 08:00 BMI result Body Mass Index 51.0 Appearance: Alert.? Oriented X3.? cvs: rrr, [id number] . res: clear to auscultation ,no rhonchii or wheezing abd: no rebound or guarding ,nt, bs present. ext pulses present , no cyanosis ,b/l lower ext erythema . neuro: axo3 , nonfocal. Objective Data Active Medications Acetaminophen (Acetaminophen 325 Mg Tablet) 650 mg PO Q6H PRN PRN Reason: Pain, Mild (Pain Scale 1-3) Last Admin: 09/25/23 08:20 Dose: 650 mg Documented By: WALDO Al Hydroxide/Mg Hydroxide (Magnesium Hydrox/Alum Hydrox 30 Ml Oral.Susp) 30 ml PO Q4H PRN PRN Reason: Heartburn/Nausea Atorvastatin Calcium (Atorvastatin Calcium 20 Mg Tablet) 20 mg PO DAILY [facility] Last Admin: 09/25/23 08:21 Dose: 20 mg Documented By: WALDO Docusate Sodium (Docusate Sodium 100 Mg Capsule) 100 mg PO BID [facility] Last Admin: 09/25/23 08:15 Dose: Not Given Documented By: WALDO Non-Admin Reason: pt moving bowels Enoxaparin Sodium (Enoxaparin Sodium 40 Mg/0.4 Ml Syringe) 40 mg SUBCUT Q24H [facility] Last Admin: 09/24/23 21:18 Dose: 40 mg Documented By: BRYANNA Gabapentin (Gabapentin 300 Mg Capsule) 300 mg PO BEDTIME [facility] Last Admin: 09/24/23 21:18 Dose: 300 mg Documented By: BRYANNA Linezolid (Linezolid 600 Mg Tablet) 600 mg PO Q12H [facility] Last Admin: 09/25/23 04:50 Dose: 600 mg Documented By: BRYANNA Losartan Potassium (Losartan Potassium 50 Mg Tablet) 50 mg PO DAILY [facility]; Protocol Last Admin: 09/25/23 08:21 Dose: 50 mg Documented By: WALDO Melatonin (Melatonin 3 Mg Tablet) 6 mg PO BEDTIME PRN PRN Reason: Insomnia Montelukast Sodium (Montelukast Sodium 10 Mg Tablet) 10 mg PO BEDTIME [facility] Last Admin: 09/24/23 21:18 Dose: 10 mg Documented By: BRYANNA Ondansetron HCl (Ondansetron Hcl 4 Mg/2 Ml Vial) 4 mg IVPUSH Q8H PRN PRN Reason: Nausea and Vomiting Sodium Chloride (0.9 % Sodium Chloride Flush 3 Ml Syringe) 3 ml IVFLUSH QSHIFT [facility] Last Admin: 09/25/23 08:21 Dose: 3 ml Documented By: WALDO Labs 09/23/23 06:13 09/23/23 06:13 Microbiology Microbiology Results: Microbiology 09/22/23 17:49 Blood Culture - Preliminary Blood - Venous No growth after 48 hours. 09/22/23 17:20 Blood Culture - Preliminary Blood - Venous No growth after 48 hours. Assessment and Plan (1) Cellulitis: Status: Acute Plan 83 year old obese white female with history of lymphedema, hyperlipidemia and hypertension here with: 1. Cellulites of both legs- noted with redness of both legs from mid ramirez to the ankles concern for cellulitis versus chronic stasis dermatitis in setting of lymphedema switched to linezolid , patient is allergic to penicillin and doxycycline(allergic reaction checked from her assisted living and family they could not elaborate on it). 2. ESBL Klebsiella pneumonia UTI-found with ESBL K. Pneumonia in urine sample from was treated suboptimally with Cephlexin patient is however asymptomatic repeat urinalysis -neg Discussed with ID: Previous cultures are: Addition since patient is not having any urinary complaints as well as urinalysis negative. 3. Hypertension - resume Losartan 4. Hyperlipidemia - resume Atorvastatin 5. Morbid obesity - BMI 51 - encourage weight loss PT recommended rehab DvT: SC Lovenox code status : Full code ongoing hospitlisation need:awaiting rehab placement. Quality Stroke Does the patient have a stroke diagnosis?: No VTE Prior VTE?: No VTE Risk Level:: Medical - moderate - high VTE Device Contraindication: N/A - Device Ordered VTE Drug Contraindication: N/A - Med Ordered
[2023-09-25] MEDS: diphenhydrAMINE HCl 2 % Cream 28 GM TUBE 1 APPL TOPICAL (14:49)
--- NOTE | 2023-09-25 15:04 | MHC.CM.PN ---
PT WILL NEED STR REFERRALS ARE OUT
[2023-09-25 15:17] VITALS: BP 161/72; PULSE 77; RESP 18; TEMP 36.7; O2SAT 94
--- NOTE | 2023-09-25 15:43 | PC.NURSE ---
Addendum entered by Tiera Russell RN 09/25/23 17:05: PO Benadryl ordered and given with good effect per pt. Original Note: MD Huang Notified pt reporting itchy lower extremities, lotion applied. Benadryl cream ordered and applied with little effect, MD aware. MD made aware pts BP continues to be elevated last reading 161/71.
[2023-09-25] MEDS: diphenhydrAMINE HCL 25 MG CAPSULE PO ×2 (15:52→21:58)
[2023-09-25 19:52] VITALS: BP 156/77; PULSE 80; RESP 19; TEMP 36.1; O2SAT 94
[2023-09-25] MEDS: Enoxaparin Sodium 40 MG/0.4 ML SYRINGE SUBCUT (20:07)
[2023-09-25] MEDS: Gabapentin 300 MG CAPSULE PO (20:07)
[2023-09-25] MEDS: Montelukast Sodium 10 MG TABLET PO (20:07)
[2023-09-25] MEDS: Magnesium Hydrox/Alum Hydrox 30 ML ORAL.SUSP PO (20:08)
--- NOTE | 2023-09-25 21:45 | MHC.PIE ---
p; pt c/o itchiness. note; pt has c/o itchiness to legs on earlier shift with prn Benadryl cream ordered with no effect but po Benadryl one time dose had good effect according to the previous rn i; dr mckeon notified. new order Benadryl po q4 prn e; will colnt to monitor
[2023-09-25] MEDS: Melatonin 3 MG TABLET 6 MG PO (23:38)
--- NOTE | 2023-09-25 23:51 | MHC.PIE ---
p; pt cont to c/o itchiness to dario legs. note; dario legs washed with steil water ointment applied, prn benadrly given with little result. i; dr mckeon notified e; will cont to [facility]
[2023-09-26] MEDS: diphenhydrAMINE HCL 50 MG/ML VIAL 25 MG IVPUSH (00:15)
[2023-09-26] MEDS: diphenhydrAMINE HCL 25 MG CAPSULE PO ×3 (05:02→15:03)
[2023-09-26] MEDS: Linezolid 600 MG TABLET PO ×2 (05:02→15:57)
[2023-09-26] MEDS: Acetaminophen 325 MG TABLET 650 MG PO ×2 (05:12→11:18)
[2023-09-26] MEDS: diphenhydrAMINE HCl 2 % Cream 28 GM TUBE 1 APPL TOPICAL (05:12)
[2023-09-26] MEDS: Losartan Potassium 50 MG TABLET PO (07:48)
[2023-09-26] MEDS: Docusate Sodium 100 MG CAPSULE PO ×2 (07:48→20:22)
[2023-09-26] MEDS: Atorvastatin Calcium 20 MG TABLET PO (07:49)
[2023-09-26] MEDS: 0.9 % Sodium Chloride Flush 3 ML SYRINGE IVFLUSH ×3 (07:49→20:23)
[2023-09-26 08:00] VITALS: BP 145/72; PULSE 88; RESP 18; TEMP 36.3; O2SAT 96
[2023-09-26] MEDS: hydrOXYzine HCL 25 MG TABLET PO ×2 (11:54→17:48)
--- NOTE | 2023-09-26 14:05 | PC.NURSE ---
Addendum entered by Tiera Russell RN 09/26/23 15:40: MD ordered 1x dose of PO Benadryl and cortisone cream, medication given as ordered. Pt reports improvement with itching. Original Note: MD Huang made aware pt continues to endorse itching on bilateral LE. Hydroxyzine ordered and given with little effect. No new orders at this time, md aware of effectiveness.
--- NOTE | 2023-09-26 14:34 | HO.PM.IMPN ---
Subjective Subjective Date of Service: 09/26/23 Interval History: leg cellulitis Review of Systems seems improving has itching but does not seems to be uncomfortable or try ?to itch Physical Exam Vital Signs: Vital Signs: Last Vital Signs Temp 97.4 F 09/26/23 08:00 Pulse 88 09/26/23 08:00 Resp 18 09/26/23 08:00 BP 145/72 H 09/26/23 08:00 Pulse Ox 96 09/26/23 08:00 O2 Del Method Room Air 09/26/23 08:00 BMI result Body Mass Index 51.0 Appearance: Alert.? Oriented X3.? cvs: rrr, [id number] . res: clear to auscultation ,no rhonchii or wheezing abd: no rebound or guarding ,nt, bs present. ext pulses present , no cyanosis ,b/l lower ext erythema improving . neuro: axo3 , nonfocal. Objective Data Active Medications Acetaminophen (Acetaminophen 325 Mg Tablet) 650 mg PO Q6H PRN PRN Reason: Pain, Mild (Pain Scale 1-3) Last Admin: 09/26/23 11:18 Dose: 650 mg Documented By: WALDO Al Hydroxide/Mg Hydroxide (Magnesium Hydrox/Alum Hydrox 30 Ml Oral.Susp) 30 ml PO Q4H PRN PRN Reason: Heartburn/Nausea Last Admin: 09/25/23 20:08 Dose: 30 ml Documented By: BRYANNA Atorvastatin Calcium (Atorvastatin Calcium 20 Mg Tablet) 20 mg PO DAILY [facility] Last Admin: 09/26/23 07:49 Dose: 20 mg Documented By: WALDO Diphenhydramine HCl (Diphenhydramine Hcl 25 Mg Capsule) 25 mg PO ONCE ONE Stop: 09/26/23 14:33 Docusate Sodium (Docusate Sodium 100 Mg Capsule) 100 mg PO BID [facility] Last Admin: 09/26/23 07:48 Dose: 100 mg Documented By: WALDO Enoxaparin Sodium (Enoxaparin Sodium 40 Mg/0.4 Ml Syringe) 40 mg SUBCUT Q24H [facility] Last Admin: 09/25/23 20:07 Dose: 40 mg Documented By: BRYANNA Gabapentin (Gabapentin 300 Mg Capsule) 300 mg PO BEDTIME [facility] Last Admin: 09/25/23 20:07 Dose: 300 mg Documented By: BRYANNA Hydroxyzine HCl (Hydroxyzine Hcl 25 Mg Tablet) 25 mg PO Q6H PRN PRN Reason: Itching Last Admin: 09/26/23 11:54 Dose: 25 mg Documented By: WALDO Linezolid (Linezolid 600 Mg Tablet) 600 mg PO Q12H [facility] Last Admin: 09/26/23 05:02 Dose: 600 mg Documented By: BRYANNA Losartan Potassium (Losartan Potassium 50 Mg Tablet) 50 mg PO DAILY [facility]; Protocol Last Admin: 09/26/23 07:48 Dose: 50 mg Documented By: WALDO Melatonin (Melatonin 3 Mg Tablet) 6 mg PO BEDTIME PRN PRN Reason: Insomnia Last Admin: 09/25/23 23:38 Dose: 6 mg Documented By: BRYANNA Montelukast Sodium (Montelukast Sodium 10 Mg Tablet) 10 mg PO BEDTIME [facility] Last Admin: 09/25/23 20:07 Dose: 10 mg Documented By: BRYANNA Ondansetron HCl (Ondansetron Hcl 4 Mg/2 Ml Vial) 4 mg IVPUSH Q8H PRN PRN Reason: Nausea and Vomiting Sodium Chloride (0.9 % Sodium Chloride Flush 3 Ml Syringe) 3 ml IVFLUSH QSHIFT [facility] Last Admin: 09/26/23 07:49 Dose: 3 ml Documented By: WALDO Zinc Acetate/Diphenhydramine (Diphenhydramine Hcl 2 % Cream 28 Gm Tube) 1 appl TOPICAL BID PRN; Protocol PRN Reason: Itching Last Admin: 09/26/23 05:12 Dose: 1 appl Documented By: BRYANNA Labs 09/23/23 06:13 09/23/23 06:13 Assessment and Plan (1) Cellulitis: Status: Acute Plan 83 year old obese white female with history of lymphedema, hyperlipidemia and hypertension here with: 1. Cellulites of both legs- noted with redness of both legs from mid ramirez to the ankles concern for cellulitis versus chronic stasis dermatitis in setting of lymphedema switched to linezolid , patient is allergic to penicillin and doxycycline(allergic reaction checked from her assisted living and family they could not elaborate on it). 2. ESBL Klebsiella pneumonia UTI-found with ESBL K. Pneumonia in urine sample from was treated suboptimally with Cephlexin patient is however asymptomatic repeat urinalysis -neg Discussed with ID: Previous cultures are: Addition since patient is not having any urinary complaints as well as urinalysis negative. 3. Hypertension - resume Losartan 4. Hyperlipidemia - resume Atorvastatin 5. Morbid obesity - BMI 51 - encourage weight loss PT recommended rehab DvT: SC Lovenox code status : Full code ongoing hospitlisation need:awaiting rehab placement. Quality Stroke Does the patient have a stroke diagnosis?: No VTE Prior VTE?: No VTE Risk Level:: Medical - moderate - high VTE Device Contraindication: N/A - Device Ordered VTE Drug Contraindication: N/A - Med Ordered
--- NOTE | 2023-09-26 15:01 | PC.NURSE ---
Pt was able to get up and take a few steps to chair with 2A and walker. Pt ate lunch in chair and is currently sitting up in chair watching TV.
[2023-09-26] MEDS: Hydrocortisone 1 % Cream 28.35 GM TUBE 1 APPL TOPICAL ×2 (15:03→20:23)
[2023-09-26 16:00] VITALS: BP 151/95; PULSE 88; RESP 18; TEMP 36.5; O2SAT 91
[2023-09-26 19:39] VITALS: BP 141/78; PULSE 79; RESP 18; TEMP 36.2; O2SAT 93
[2023-09-26] MEDS: Gabapentin 300 MG CAPSULE PO (20:22)
[2023-09-26] MEDS: Melatonin 3 MG TABLET 6 MG PO (20:22)
[2023-09-26] MEDS: Enoxaparin Sodium 40 MG/0.4 ML SYRINGE SUBCUT (20:22)
[2023-09-26] MEDS: Montelukast Sodium 10 MG TABLET PO (20:22)
[2023-09-27] MEDS: ondansetron HCL 4 MG/2 ML VIAL IVPUSH (00:58)
[2023-09-27] MEDS: Linezolid 600 MG TABLET PO (03:27)
[2023-09-27 03:52] VITALS: BP 140/77; PULSE 81; RESP 19; TEMP 36.6; O2SAT 93
[2023-09-27 07:22] VITALS: BP 122/79; PULSE 80; RESP 16; TEMP 37.1; O2SAT 92
[2023-09-27] MEDS: Docusate Sodium 100 MG CAPSULE PO (08:16)
[2023-09-27] MEDS: 0.9 % Sodium Chloride Flush 3 ML SYRINGE IVFLUSH (08:17)
[2023-09-27] MEDS: Losartan Potassium 50 MG TABLET PO (08:17)
[2023-09-27] MEDS: Hydrocortisone 1 % Cream 28.35 GM TUBE 1 APPL TOPICAL (08:17)
[2023-09-27] MEDS: Atorvastatin Calcium 20 MG TABLET PO (08:17)
[2023-09-27 10:42] VITALS: BP 122/79; PULSE 80; O2SAT 92
--- NOTE | 2023-09-27 12:17 | PM.DS ---
DS: Providers Provider Date of Service: 09/27/23 Date of admission: 09/23/23 10:37 Date of discharge: 09/27/23 Primary care physician: Unknown Physician Consults: 09/23/23 08:17 Consult to Infectious Diseases Routine Consulting Provider: [facility] Infectious Disease Reason for consultation: leg cellulitis /?esbl uti Has provider been notified: No 09/23/23 16:23 Consult to Wound Care Routine Reason for consultation: cellulitis bilateral legs, lymphedema DS: Diagnosis Discharge Diagnosis (1) Cellulitis: Status: Acute (2) Chronic stasis dermatitis: Status: Acute DS: Summary Hospital Course Hospital Course: 83 year old obese white female with history of lymphedema, hyperlipidemia and hypertension who presents to the emergency room from the [facility] in [place] for evaluation of bilateral leg swelling and erythema. She states that the staff at [facility] were concerned with the swelling of her legs and the erythema and so sent her in. She does not have any specific complains stating that she feels at her usual baseline. she denies having any pain, fevers or chills. Initial work up done in the emergency room did not show any fevers and lab work with no leukocytosis. She however had mild elevation in serum potassium at 5.2 mmol/L. A diagnosis of cellulitis was made and she was on IV Vancomycin and admission thereafter requested for continued care. Hospital Course Seen in consultation by ID after she received 48 hours of linezolid. Id felt this was a chronic stasis dermatitis and recommended a 10 day course of doxycycline twice daily. She was seen in consult by Physical therapy and deemed appropriate for short-term rehab. At this point time she is medically acceptable for same will be discharged Time Attestation Discharge coordination time: Greater than 30 minutes Quality: Safe Use of Opioids Does Pt have an Active Cancer Diagnosis on the Problem List?: No Quality: Stroke Does the patient have a stroke diagnosis?: No Physical Exam Vital Signs: Vital Signs: Last Vital Signs Temp 98.7 F 09/27/23 07:22 Pulse 80 09/27/23 10:42 Resp 16 09/27/23 07:22 BP 122/79 09/27/23 10:42 Pulse Ox 92 09/27/23 10:42 O2 Del Method Room Air 09/27/23 07:22 BMI result Body Mass Index 51.0 Const: Other: Awake alert no acute distress Resp: Other: Clear to auscultation bilaterally no rales rhonchi or wheezes Cardio: Other: No S4; positive S1-S2; no S3 murmurs rubs or gallops GI: Other: Soft nontender nondistended normoactive bowel sounds Extrem: Other: Changes consistent with chronic venous stasis dermatitis DS: Data Data Completed and Pending Labs on day of discharge: Preliminary micro results at discharge 09/22/23 17:49 Blood Culture - Preliminary Blood - Venous No growth after 48 hours. 09/22/23 17:20 Blood Culture - Preliminary Blood - Venous No growth after 48 hours. Discharge Plan Discharge Anticipated Discharge Date/Time: 09/27/23 12:14 Patient Disposition: Xfer Inpatient Rehab Fac Discharge Diagnosis: Chronic stasis dermatitis Referrals: [facility] [Outside] - 1 Week (TRANSFER FOR SHORT TERM REHAB) Physician,Unknown J [Primary Care Provider] - 1 Week Discharge Medications: New doxycycline hyclate 100 mg tablet 100 mg PO BID Qty: 20 0RF Continued gabapentin 300 mg capsule 300 mg PO BEDTIME losartan 50 mg tablet 50 mg PO DAILY atorvastatin 20 mg tablet 20 mg PO DAILY montelukast [Singulair] 10 mg tablet 10 mg PO QPM Discharge Orders: Discharge Order (Routine); Ordered 09/27/23 Ordered By: Jerome Madden Diet: Advance to usual diet Activity on Discharge: As tolerated Stand Alone Forms: Patient Portal Discharge page Care Plan Goals: Resume all pre-hospital medications as documented Health Concerns: Doxycycline 100 mg twice daily for 10 days has been added to your regimen Plan of Treatment: As outlined; further plans per receiving facility Assessment: See discharge summary
--- NOTE | 2023-09-27 12:23 | MHC.CM.PN ---
DP: PT HAS BEEN MEDICALLY CLEARED FOR DC TO STR AT [facility]. PER FAMILY, THEY HAVE BEEN WORKING WITH THIS CENTER TO TRANSITION TO LTC AFTER STR. HCP GARY UPDATED VIA TELEPHONE ON TRANSFER. RN AWARE. IMM ADDRESSED. BLS TRANSPORT HAS BEEN BOOKED FOR 2 PM VIA [facility]. CENTER'S LIAISON MARCY MADE AWARE.
== END 2023-09-27 14:15 | DRG 603 ==
LOC: HO.ED 18:03 → HO.EDOVER 22:05 → HO.S3 09-23 15:01
PROVIDERS: Admitting Provider Internal Medicine; Emergency Provider Internal Medicine; PCP Internal Medicine; Visit Provider Hospitalist
DX: L03.116 Cellulitis of left lower limb (principal); Z68.43 Body mass index [BMI] 50.0-59.9, adult; I87.323 Chronic venous hypertension (idiopathic) with inflammation of bilateral lower extremity; L03.115 Cellulitis of right lower limb; E66.01 Morbid (severe) obesity due to excess calories; Z71.3 Dietary counseling and surveillance; Z20.822 Contact with and (suspected) exposure to COVID-19; Z88.0 Allergy status to penicillin; Z88.1 Allergy status to other antibiotic agents; Z79.899 Other long term (current) drug therapy
CPT/HCPCS: 36415; 80048; 80053; 81003; 83605; 85025; 87040; 87635; 97110; 97162; 99222; 99285; J1200; J1650; J1940; J2405; J3370; J3371

== ENCOUNTER → 2023-09-22 21:49 | Outpatient (BNV) | payer MEDICARE, SELFPAY | PROVIDERS: Admitting Provider Internal Medicine; Emergency Provider Internal Medicine; Visit Provider Internal Medicine | DX: I87.2 Venous insufficiency (chronic) (peripheral) (principal); L03.115 Cellulitis of right lower limb; L03.116 Cellulitis of left lower limb | CPT/HCPCS: 99223; 99231; 99232; 99239 ==

== ENCOUNTER → 2023-09-23 10:37 | Outpatient (BNV) | payer MEDICARE, SELFPAY | PROVIDERS: Admitting Provider Internal Medicine; Emergency Provider Internal Medicine; Visit Provider Internal Medicine | DX: I87.2 Venous insufficiency (chronic) (peripheral) (principal) | CPT/HCPCS: 99222 ==